=== PATIENT | male | born 1930 | race African-American/Black ===

== ENCOUNTER 2019-11-29 07:16 | Inpatient (IN) | payer MEDICARE, MEDICAID ==
[~2019-11-29] VITALS: Ht 165.1 cm; Wt 64.9 kg
[2019-11-29] VITALS (17 sets, daily range): BP systolic 52–138; BP diastolic 36–69
[2019-11-29] MEDS ORDERED: ETOMIDATE 20 MG/10 ML VIAL. IV ONE ×2 (07:25→07:37)
[2019-11-29] MEDS ORDERED: SUCCINYLCHOLINE 200 MG/10 ML VIAL. IV ONE (07:25)
[2019-11-29] MEDS ORDERED: IV NORMAL SALINE 1000ML BAG 1,000 ML IV ONE ×2 (07:30→09:00)
[2019-11-29] MEDS ORDERED: SUCCINYLCHOLINE 200 MG/10 ML VIAL. ONE (07:38)
[2019-11-29] MEDS ORDERED: PROPOFOL 50 ML IV ONE ×3 (07:39→10:00)
[2019-11-29 07:43] LABS: BASO # 0.2 x10^3/uL (0.0-0.2); BASO % 1 % (0-3); EOS # 0.1 x10^3/uL (0.0-0.7); EOS % 0 % (0-3); HEMATOCRIT 31.2 % (39.0-53.0); HEMOGLOBIN 10.2 g/dL (13.0-17.5); LYMPH # 4.8 x10^3/uL (1.0-4.8); LYMPH % 16 % (24-48); MEAN CORPUSCULAR HEMOGLOBIN 31 pg (25-35); MEAN CORPUSCULAR HGB CONC 33 g/dL (31-37); MEAN CORPUSCULAR VOLUME 96 fL (79-100); MONO % 3 % (0-9); NEUT % 79 % (31-73); PLATELET COUNT 454 x10^3/uL (140-400); RED BLOOD COUNT 3.26 x10^6/uL (4.30-5.70); RED CELL DISTRIBUTION WIDTH 19.2 % (11.5-14.5); WHITE BLOOD COUNT 29.1 x10^3/uL (4.0-11.0)
[2019-11-29 07:45] LABS: BILIRUBIN,URINE NEGATIVE (NEG); CLARITY,URINE CLEAR; COLOR,URINE YELLOW; NITRITE,URINE NEGATIVE (NEG); PROTEIN,URINE NEGATIVE (NEG-TRACE); UROBILINOGEN,URINE 0.2 mg/dL (0.2 mg/dL)
[2019-11-29] MEDS ORDERED: PIPERACILLIN/TAZOBACTAM 3.375 GM in IV NORMAL SALINE 50ML 50 ML IV ONE (07:45)
[2019-11-29 07:52] LABS: PROTHROMBIN TIME PATIENT 14.6 SEC (11.7-14.0)
[2019-11-29 07:53] LABS: BASE EXCESS ABG -4 mmol/L (-3-3); HCO3 ABG 24 mmol/L (21-28); PCO2 ABG 57 mmHg (35-46); PO2 ABG 91 mmHg (65-108); SAT O2 ABG 95 % (92-99)
[2019-11-29 07:53] LABS: AMORPHOUS SEDIMENT,UR PRESENT /HPF; BACTERIA,URINE 0 /HPF (0-FEW); RBC,URINE 0 /HPF (0-2); SQUAMOUS EPITHELIAL CELL,UR OCC /LPF; WBC,URINE OCC /HPF (0-4)
[2019-11-29 08:02] LABS: FIO2 ABG 100
--- NOTE | 2019-11-29 08:04 | RAD ---
PORTABLE CHEST 1V 11/29/2019 7:34 AM INDICATION: Shortness of air, post intubation COMPARISON: 11/08/2006 TECHNIQUE: Portable frontal view of the chest is provided. FINDINGS: The cardiomediastinal silhouette is similar in appearance. Surgical clips are identified in the right hilar region, stable. There is chronic inflammation right hemidiaphragm. Endotracheal tube is identified with the distal tip terminating 3.9 cm above lower payam. Nasogastric tube is identified with the side port projecting over the left upper quadrant abdomen in expected region of the stomach. There are are patchy interstitial changes of the lung bases which may represent interstitial pneumonitis versus subsegmental atelectasis. No significant pleural effusions, pulmonary vascular congestion or pneumothorax. No suspicious osseous abnormality. IMPRESSION: Endotracheal tube and nasogastric tube are in satisfactory position. Retraction of the right hilum with elevation right hemidiaphragm appears chronic. New patchy interstitial airspace disease within the lower lobes, left greater than right suspicious for pulmonary infiltrates. Electronically signed by: Madeline Larson MD (11/29/2019 8:01 AM) [id number]
[2019-11-29 08:38] LABS: % LYMPHS 22 % (24-48); % MONOS 5 % (0-10); % SEGS 73 % (35-66)
[2019-11-29 08:39] LABS: PLT ESTIMATE INCREASED (ADEQUATE)
[2019-11-29] MEDS ORDERED: PROPOFOL 10 MG/ML (50ML) VIAL. IV ONE (08:45)
[2019-11-29] MEDS ORDERED: PROPOFOL 10 MG/ML (20ML) VIAL. IV ONE (09:30)
[2019-11-29] MEDS ORDERED: PROPOFOL 10 MG/ML (20ML) VIAL. IV PRN (09:45)
--- NOTE | 2019-11-29 09:50 | PHYS DOC ---
Past Medical History Past Medical History: A-Fib, Anemia, CVA, High Cholesterol, Hypertension, Pneumonia, TIA, Other Additional Past Medical Histor: CVA R SIDED WEAKNESS, APHASIA, DYSPHAGIA, ENCEPHALOPATHY,C.DIFF Past Surgical History: Other Additional Past Surgical Histo: UNKNOWN SUGICAL HX Smoking Status: Unknown if ever smoked Alcohol Use: None General Adult EDM: Chief Complaint: DYSPNEA/RESPIRATOY DISTRESS HPI: HPI: Patient is a 89 year old male who was brought here from the [place] [facility] due to altered mental status and respiratory distress. History was limited, upon arrival to ER patient was unresponsive to pain or verbal stimuli, in respiratory distress. 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 He also has history of aphagia, has PEG tube in place. Review of Systems: Review of Systems: Not able to obtain due to unresponsiveness Heart Score: Risk Factors: Risk Factors: DM, Current or recent (<one month) smoker, HTN, HLP, family history of CAD, obesity. Risk Scores: Score 0 - 3: 2.5% MACE over next 6 weeks - Discharge Home Score 4 - 6: 20.3% MACE over next 6 weeks - Admit for Clinical Observation Score 7 - 10: 72.7% MACE over next 6 weeks - Early Invasive Strategies Current Medications: Current Medications Medications (Trade) Dose Ordered Sig/Jaleesa Start Time Stop Time Status Last Admin Dose Admin Etomidate (Amidate) 20 mg 1X ONCE 11/29/19 07:25 11/29/19 08:30 DC 11/29/19 08:35 20 MG Piperacillin Sod/ Tazobactam Sod 3.375 gm/Sodium Chloride 50 ml @ 100 mls/hr 1X ONCE 11/29/19 07:45 11/29/19 08:14 DC 11/29/19 08:29 100 MLS/HR Propofol 50 ml @ 0.975 mls/ hr 1X ONCE 11/29/19 10:00 11/29/19 10:01 Propofol (Diprivan) 200 mg TITRATE PRN 11/29/19 09:45 11/29/19 09:47 DC 11/29/19 09:45 200 MG Sodium Chloride 1,000 ml @ 1,000 mls/hr 1X ONCE 11/29/19 09:00 11/29/19 09:59 11/29/19 09:09 1,000 MLS/HR Succinylcholine Chloride (Anectine) 100 mg 1X ONCE 11/29/19 07:25 11/29/19 08:30 DC 11/29/19 08:31 100 MG Allergies: Allergies: Allergies Coded Allergies Type Severity Reaction Last Updated Verified No Known Drug Allergies 11/29/19 No Physical Exam: PE: Constitutional: Well developed, well nourished, in severe distress, unr esponsive, toxic appearing HENT: Normocephalic, atraumatic, bilateral external ears normal,whitish fluid in oropharyngeal area. nose normal. [] Eyes: PERRLA,conjunctiva normal, no discharge. [] Neck: Normal range of motion, no tenderness, supple, no stridor. [] Cardiovascular:Heart rate regular rhythm, no murmur [] Lungs & Thorax: Bilateral breath sounds with diffuse rales. Abdomen: Bowel sounds normal, soft, no tenderness, no masses, no pulsatile masses. PEG tube in place Skin: Warm, dry, no erythema, no rash. [] Back: atraumatic. Extremities: atraumatic, no edema Neurologic: unresponsive to pain or verbal... Psychologic: not able to obtain Current Patient Data: Labs: Laboratory Tests Test 11/29/19 07:25 11/29/19 07:35 11/29/19 07:36 11/29/19 08:15 White Blood Count 29.1 x10^3/uL (4.0-11.0) H Red Blood Count 3.26 x10^6/uL (4.30-5.70) L Hemoglobin 10.2 g/dL (13.0-17.5) L Hematocrit 31.2 % (39.0-53.0) L Mean Corpuscular Volume 96 fL (79-100) Mean Corpuscular Hemoglobin 31 pg (25-35) Mean Corpuscular Hemoglobin Concent 33 g/dL (31-37) Red Cell Distribution Width 19.2 % (11.5-14.5) H Platelet Count 454 x10^3/uL (140-400) H Neutrophils (%) (Auto) 79 % (31-73) H Lymphocytes (%) (Auto) 16 % (24-48) L Monocytes (%) (Auto) 3 % (0-9) Eosinophils (%) (Auto) 0 % (0-3) Basophils (%) (Auto) 1 % (0-3) Neutrophils # (Auto) 23.0 x10^3/uL (1.8-7.7) H Lymphocytes # (Auto) 4.8 x10^3/uL (1.0-4.8) Monocytes # (Auto) 1.0 x10^3/uL (0.0-1.1) Eosinophils # (Auto) 0.1 x10^3/uL (0.0-0.7) Basophils # (Auto) 0.2 x10^3/uL (0.0-0.2) Segmented Neutrophils % 73 % (35-66) H Lymphocytes % 22 % (24-48) L Monocytes % 5 % (0-10) Platelet Estimate Increased (ADEQUATE) Prothrombin Time 14.6 SEC (11.7-14.0) H Prothrombin Time INR 1.2 (0.8-1.1) H Activated Partial Thromboplast Time 26 SEC (24-38) Lactic Acid Level 2.3 mmol/L (0.4-2.0) H Urine Collection Type Unknown Urine Color Yellow Urine Clarity Clear Urine pH 6.0 (<5.0-8.0) Urine Specific [place] 1.010 (1.000-1.030) Urine Protein Negative mg/dL (NEG-TRACE) Urine Glucose (UA) Negative mg/dL (NEG) Urine Ketones (Stick) Negative mg/dL (NEG) Urine Blood Negative (NEG) Urine Nitrite Negative (NEG) Urine Bilirubin Negative (NEG) Urine Urobilinogen Dipstick 0.2 mg/dL (0.2 mg/dL) Urine Leukocyte Esterase Negative (NEG) Urine RBC 0 /HPF (0-2) Urine WBC Occ /HPF (0-4) Urine Squamous Epithelial Cells Occ /LPF Urine Amorphous Sediment Present /HPF Urine Bacteria 0 /HPF (0-FEW) Urine Mucus Slight /LPF O2 Saturation 95 % (92-99) Arterial Blood pH 7.25 (7.35-7.45) L Arterial Blood pCO2 at Patient Temp 57 mmHg (35-46) H Arterial Blood pO2 at Patient Temp 91 mmHg (65-108) Arterial Blood HCO3 24 mmol/L (21-28) Arterial Blood Base Excess -4 mmol/L (-3-3) L FiO2 100 Troponin I Quantitative 0.047 ng/mL (0.000-0.055) AT-Fne-I-Type Natriuretic Peptide 131 pg/mL (0-449) Laboratory Tests 11/29/19 07:25 Vital Signs: Vital Signs Date Time Temp Pulse Resp B/P (MAP) Pulse Ox O2 Delivery O2 Flow Rate FiO2 11/29/19 08:55 106 96/51 (66) Ventilator 11/29/19 08:45 93 11/29/19 07:30 25.0 11/29/19 07:25 96.6 50 96.6 EKG: EKG: EKG was done as 8 am, heart rate 105 beats per minutes, sinus tachycardia, no ST segment elevation, normal conduction, no ectopy Radiology/Procedures: Radiology/Procedures: [][facility] [address] [place], [place] [id number] IMAGING REPORT Signed PATIENT: ASYA YEE ACCOUNT: [id number] : 1930 LOCATION: ER AGE: 89 SEX: M EXAM STATUS: REG ER ORD. PHYSICIAN: PAMELA KIRKLAND DO REASON: soa, post intubation PROCEDURE: PORTABLE CHEST 1V PORTABLE CHEST 1V 11/29/2019 7:34 AM INDICATION: Shortness of air, post intubation COMPARISON: 11/08/2006 TECHNIQUE: Portable frontal view of the chest is provided. FINDINGS: The cardiomediastinal silhouette is similar in appearance. Surgical clips are identified in the right hilar region, stable. There is chronic inflammation right hemidiaphragm. Endotracheal tube is identified with the distal tip terminating 3.9 cm above lower payam. Nasogastric tube is identified with the side port projecting over the left upper quadrant abdomen in expected region of the stomach. There are are patchy interstitial changes of the lung bases which may represent interstitial pneumonitis versus subsegmental atelectasis. No significant pleural effusions, pulmonary vascular congestion or pneumothorax. No suspicious osseous abnormality. IMPRESSION: Endotracheal tube and nasogastric tube are in satisfactory position. Retraction of the right hilum with elevation right hemidiaphragm appears chronic. New patchy interstitial airspace disease within the lower lobes, left greater than right suspicious for pulmonary infiltrates. Electronically signed by: Madeline Larson MD (11/29/2019 8:01 AM) [id number] INTUBATION PROCEDURE: Indication: Respiratory failure Consent: Unable to give consent due to emergent nature. Medications Used: see nursing note Procedure: The patient was placed in the appropriate position. Intubation was performed by this physician, glide scope was used, cord was visualized, ET TUBE # 7.5 was used. ET tube was secured 24 at lip. Initial confirmation of placement included bilateral breath sounds, tube fogging, adequate chest rise, adequate pulse oximetry reading. A chest x-ray to verify correct placement of the tube showed appropriate tube position. The patient tolerated the procedure well. Complications: none. Course & Med Decision Making: Course & Med Decision Making Pertinent Labs and Imaging studies reviewed. (See chart for details) Patient is an 89-year-old male who was brought here by EMS due to respiratory failure, he was intubated urgently upon arrival by disposition. Patient was found to have pneumonia. He also met criteria for severe sepsis. Patient was given IV fluid and IV antibiotic in the ER, he was admitted to the hospital, pulmonology service was consulted for ventilator management. Discussed with Dr. Mina who agreed to admit the patient Critical care time was [45] minutes which includes time at bedside, spent in discussion of patient's care with specialist and/or family members, with interpretation of laboratory and/or radiological studies and is exclusive of procedures. Dragon Disclaimer: Dragon Disclaimer: This electronic medical record was generated, in whole or in part, using a voice recognition dictation system. Departure Departure Impression: Primary Impression: Respiratory failure, acute Additional Impressions: Pneumonia Severe sepsis Disposition: ADMITTED INPATIENT Admitting Physician: Dm Mina Condition: GUARDED Referrals: MATEO BURGESS MD (PCP) Justicifation of Admission Dx: Justifications for Admission: Justification of Admission Dx: Yes Sepsis: Altered Mental Status PAMELA KIRKLAND DO Nov 29, 2019 09:50
[2019-11-29] MEDS ORDERED: ONDANSETRON PF 4 MG/2 ML VIAL. IV PRN (10:15)
[2019-11-29] MEDS ORDERED: VANCOMYCIN PER PHARMACY MC PRN (10:15)
[2019-11-29] MEDS ORDERED: IV NORMAL SALINE 1000ML BAG 1,000 ML IV SCH (10:15)
[2019-11-29 10:28] LABS: CREATININE 0.8 mg/dL (0.7-1.3); GFR 110.6; POTASSIUM 4.3 mmol/L (3.5-5.1)
[2019-11-29] MEDS ORDERED: IV NORMAL SALINE 1000ML BAG 1,000 ML IV PRN (10:30)
[2019-11-29] MEDS ORDERED: ACETAMINOPHEN 650 MG/20.3 ML SOLUTION. PEG PRN (10:30)
[2019-11-29 10:33] LABS: ALBUMIN 1.8 g/dL (3.4-5.0); ALBUMIN/GLOBULIN RATIO 0.4 (1.0-1.7); MAGNESIUM 1.9 mg/dL (1.8-2.4); TOTAL BILIRUBIN 0.4 mg/dL (0.2-1.0); TOTAL PROTEIN 6.1 g/dL (6.4-8.2)
[2019-11-29] MEDS ORDERED: VANCOMYCIN 1.5 GM in IV NORMAL SALINE 500ML BAG 500 ML IV ONE (10:45)
--- NOTE | 2019-11-29 10:51 | PDOC ---
Provider Note Date of Service: DATE: 11/29/19 TIME: 10:50 Provider Note history and physical dictated # [id number] Justifications for Admission Other Justification PHILLY FONSECA MD Nov 29, 2019 10:51
--- NOTE | 2019-11-29 11:27 | HP ---
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 Chest x-ray showed bilateral lower lobe infiltrates with a high diaphragm. He had acute hypoxic respiratory failure requiring intubation and sedation in the Emergency Room. He is currently on the ventilator. ALLERGIES AND INTOLERANCES: None. MEDICATIONS: Prior to admission include allopurinol 100 mg every day, amiodarone 200 mg every day, aspirin 81 mg every day, Os-Justus D 500 one tablet every day, atorvastatin 40 mg every day, metoprolol tartrate 50 mg b.i.d., probiotic once a day, transdermal scopolamine patch 1 patch every 72 hours, and Tylenol 500 mg t.i.d. PAST MEDICAL HISTORY: Significant for cerebrovascular accident with late effects, right-sided hemiparesis, oropharyngeal dysphagia, and global aphasia, maintaining gastrostomy tube feedings with encephalopathy. He has a history of hypertension and hyperlipidemia. History of prior paroxysmal atrial fibrillation. History of anemia. SOCIAL HISTORY: He does not drink alcohol nor does he smoke cigarettes. He resides in a [facility], cared for by another physician. FAMILY HISTORY: Noncontributory. REVIEW OF SYSTEMS: Unobtainable as the patient is on the ventilator. PHYSICAL EXAMINATION: VITAL SIGNS: Temperature is 96.6 degrees, heart rate is 94, respiratory rate is 20, blood pressure is 104/52, and oxygen saturation 94% on the ventilator. HEENT: Eyes are closed. Neck is supple. Mouth is orally intubated. He is on the ventilator. HEART: S1, S2. There is no S3 or murmur. LUNGS: Clear anteriorly with a few scattered rhonchi with decreased breath sounds. ABDOMEN: Soft, bowel sounds positive, has got a gastrostomy tube. EXTREMITIES: Lower extremities without edema. SKIN: No rashes. NEUROLOGIC: He is sedated on the ventilator. LABORATORY DATA: Review of his laboratory tests: White count 29.1, hemoglobin is 10.2 with a platelet count of 454,000, 73 polys and 22 lymphocytes. Arterial blood gas showed a pH 7.25, pCO2 of 57, and a pO2 of 91. His INR was 1.2, PTT of 26. Urinalysis showed occasional white cells and no red blood cells. Sodium 138, potassium 4.3, chloride 107, total CO2 of 27, BUN 51, creatinine 0.8, and blood sugar was 166. Calcium 9.0. Lactic acid level 2.3, troponin level 0.047, and proBNP 131. EKG showed sinus tachycardia with no acute change. He had a chest x-ray done, which showed endotracheal tube in place. He has got a retraction of the right hilum and right hemidiaphragm, which appears chronic and new patchy interstitial airspace disease in the lower lobes, left greater than right, suspicious for pneumonia. ASSESSMENT: 1. Suspect aspiration pneumonia. 2. Acute hypoxic and hypercarbic respiratory failure, on the ventilator. 3. Leukocytosis. 4. 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 5. Prerenal azotemia secondary to dehydration. 6. Hypertension. 7. Hyperlipidemia. 8. Paroxysmal atrial fibrillation, currently in sinus rhythm. PLAN: At this time is to consult Dr. Alatorre for Pulmonary and Dr. Milton Calle for Infectious Disease. We will admit him to the Intensive Care Unit. We will continue ventilator support. We will start him on his tube feedings at 30 mL an hour and advance it slowly to a goal rate of 60 an hour, water flushes 200 mL every 6 hours and with normal saline at 75 mL an hour. Repeat a CBC, BMP, and chest x-ray tomorrow. Blood cultures have been ordered. Sputum culture will be done. He had received a dose of IV vancomycin in the Emergency Room. Also, IV Zosyn will be continued. Heel protectors will be ordered. Put him on heparin for deep vein thrombosis prophylaxis and also Pepcid for gastric ulcer prophylaxis. PHILLY FONSCEA MD DR: ASIF/chuck JOB#: [id number] / [id number]
[2019-11-29 12:00] LABS: BASE EXCESS ABG -4 mmol/L (-3-3); HCO3 ABG 20 mmol/L (21-28); PCO2 ABG 36 mmHg (35-46); PO2 ABG 62 mmHg (65-108); SAT O2 ABG 90 % (92-99)
[2019-11-29] MEDS ORDERED: MIDAZOLAM HCL IV ONE (12:00)
[2019-11-29] MEDS ORDERED: NORMAL SALINE IV ONE (12:00)
[2019-11-29 12:02] LABS: FIO2 ABG 60
--- NOTE | 2019-11-29 12:15 | CONS ---
DATE OF CONSULTATION: 11/29/2019 PULMONARY CONSULTATION ATTENDING PHYSICIAN: Dm Mina MD REASON FOR CONSULTATION: Respiratory failure. HISTORY OF PRESENT ILLNESS: The patient is an 89-year-old male, who has a history of CVA with right-sided hemiparesis and oropharyngeal dysphagia. He has a PEG tube. [facility] He was brought into [facility] this morning after he was found to be unresponsive to verbal stimuli and was in respiratory distress. His chest x-ray was reviewed. It shows chronically elevated right hemidiaphragm. However, there was evidence of infiltrate involving both the lower lobes, more on the left base than the right. Currently, he is intubated. I saw him in the Emergency Room. His white cell count was markedly elevated. ABG showed a pH of 7.25, pCO2 of 57 and a pO2 of 91 on 100% FiO2. He is currently down to 60% FiO2, assist control mode, PEEP of 5. He is hemodynamically stable. I have been asked to see him for further evaluation. PAST MEDICAL HISTORY: CVA with right-sided hemiparesis, history of oropharyngeal dysphagia, history of global aphasia, history of PEG tube, history of encephalopathy, history of hypertension, hyperlipidemia, paroxysmal atrial fibrillation, and anemia. PAST SURGICAL HISTORY: PEG tube placement. SOCIAL HISTORY: Resides in a jail. No reported history of smoking or alcohol use per Dr. Mina's note. FAMILY HISTORY: Noncontributory. REVIEW OF SYSTEMS: Unable to obtain as he is on the ventilator. ALLERGIES: None. CURRENT MEDICATIONS: Given in the ER were reviewed, including antibiotic, vancomycin, and Zosyn. He is on amiodarone. PHYSICAL EXAMINATION: GENERAL: He is intubated and sedated. VITAL SIGNS: Blood pressure 100/55. He does not have fever. Blood pressure initially was 200/85. HEENT: Sclerae nonicteric. NECK: Supple. LUNGS: With diminished breath sounds with few rhonchi. CARDIOVASCULAR: Regular rate and rhythm. ABDOMEN: Soft with wounds in the lower extremities. LABORATORY DATA: Reviewed. ABG discussed in my history of present illness. BUN 50 and creatinine of 0.8. BNP 444. Troponin 0.108. Albumin is 1.8. INR 1.2. White cell count 29,000; hemoglobin 10.1; platelets are 454. IMPRESSION: 1. Acute hypoxic and hypercapnic respiratory failure, likely secondary to combination of pneumonia and possible sepsis. 2. Marked leukocytosis related to pneumonia. Need to rule out all other sources of infection as well. 3. 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 Status post percutaneous endoscopic gastrostomy tube placement. 4. Abnormal chest x-ray consistent with pneumonia. 5. History of paroxysmal atrial fibrillation. 6. Severe protein-calorie malnutrition. 7. Prerenal azotemia. 8. Mildly increased troponin level. RECOMMENDATIONS: 1. Discussed with the respiratory therapist and ER physician. 2. We will continue with present assist control mode and make changes based on the ABGs. 3. Broad-spectrum antibiotics. 4. Continue to monitor blood pressure closely. 5. Sedation. 6. We will try to reach the patient's DPOA to assess for advanced directives, especially in the setting of multiple comorbid conditions and poor quality of life before intubation. 7. DVT prophylaxis with subcutaneous heparin. 8. Stress ulcer prophylaxis. 9. We will follow along with you. Discussed with RN and RT and ER physician. CRITICAL CARE TIME: 35 minutes. IWONA SMILEY MD DR: RIKKI/chuck JOB#: [id number] / [id number]
[2019-11-29] MEDS ORDERED: NOREPINEPHRINE VIAL 8 MG in IV DEXTROSE 5% 250 ML IV PRN (13:00)
[2019-11-29] MEDS: SCOPOLAMINE 1.5MG PATCH. TD SCH (14:00)
--- NOTE | 2019-11-29 14:14 | RAD ---
Chest AP portable at 1324: Reason for examination: Post right central venous line placement. Comparison is made to previous study dated 11/29/2019 at 0743. Endotracheal tube and NG tube remain present. A right central venous catheter has been placed with the tip in the superior vena cava/right atrial junction region. No pneumothorax is seen. The heart size is normal. Mediastinum is unchanged. Lung tuttle show persistent elevation of the right hemidiaphragm. There appear to be worsening infiltrates in the right and left perihilar and lower lung tuttle. No gross pleural effusions are seen no acute bony abnormalities are seen. There are old rib fractures at the right seventh rib and there has been resection of the right sixth rib. IMPRESSION: Right central venous line present with the tip at the superior vena cava/right atrial junction with no evidence of pneumothorax. Increasing bilateral perihilar and lower lobe infiltrates, left greater than right. Electronically signed by: Jessy Cloud MD (11/29/2019 2:11 PM) KRISTEL
[2019-11-29] MEDS ORDERED: ACET650S PO (14:29)
[2019-11-29] MEDS ORDERED: LACT1CAP8 PO (14:37)
[2019-11-29] MEDS ORDERED: AMIO200T4 PEG (14:37)
[2019-11-29] MEDS ORDERED: ALLO100T PEG (14:37)
[2019-11-29] MEDS ORDERED: ASPI-630 PEG (14:37)
[2019-11-29] MEDS ORDERED: METO50TA6 PEG (14:37)
[2019-11-29] MEDS ORDERED: SCOP1PAT11 TP (14:37)
[2019-11-29] MEDS ORDERED: ATOR40TA PEG (14:37)
[2019-11-29] MEDS ORDERED: CALC-56 PEG (14:37)
[2019-11-29] MEDS: VASOPRESSIN 20 UNIT in IV DEXTROSE 5% 100ML 100 ML IV PRN ×2 (15:40→22:36)
[2019-11-29] MEDS: NOREPINEPHRINE VIAL 32 MG in IV DEXTROSE 5% 218 ML IV PRN (17:02)
[2019-11-29] MEDS: PIPERACILLIN/TAZOBACTAM 3.375 GM in IV NORMAL SALINE 50ML 50 ML IV SCH (18:27)
--- NOTE | 2019-11-29 18:42 | NUR ---
Patient recently was discharged from , went to [facility], then to [facility] in [place], [place]. I call the facility to get family information. I then talked to Oneida Baires, daughter, and updated her on her father's condition. I asked about code status, she said she was not sure if keeping him on life support was fair to him. She said that she would have a family conference call to discuss this. I educated the daughter what all is involved with the full code status and what is involved in comfort care. I also explained that a may call to update them on the patient's status within a day or two. I have all numbers and family members involved. Daughter Liam Baires, cell# [phone] and # [phone]. Josh Barrett (son in law) [phone]. Aurora Draper (granddaughter) [phone].
[2019-11-29] MEDS: MIDAZOLAM 100mg/100ml NS BAG 100 ML IV PRN (19:39)
[2019-11-29] MEDS: ATORVASTATIN CALCIUM 40 MG TABLET. PEG SCH (20:03)
[2019-11-29] MEDS: VANCOMYCIN 125 MG/2.5 ML ORAL SOLUTION. PEG SCH (20:04)
[2019-11-29] MEDS: METOPROLOL TART IMMED RELEASE 50 MG TABLET. PO SCH (20:05)
[2019-11-29] MEDS: HEPARIN for SUB-Q USE 5,000 UNIT/ML VIAL. SQ SCH (20:05)
[2019-11-30] VITALS (36 sets, daily range): BP systolic 91–184; BP diastolic 45–77
[2019-11-30] MEDS ORDERED: IV NORMAL SALINE 1000ML BAG 1,000 ML IV PRN (00:15)
[2019-11-30] MEDS: PIPERACILLIN/TAZOBACTAM 3.375 GM in IV NORMAL SALINE 50ML 50 ML IV SCH ×2 (00:32→05:33)
[2019-11-30] MEDS: NOREPINEPHRINE VIAL 32 MG in IV DEXTROSE 5% 218 ML IV PRN ×3 (00:33→20:00)
--- NOTE | 2019-11-30 03:15 | NUR ---
Pt experiencing low urine output. Provider called at 2359 and updated on pt reason for admission, medical history, current vitals, medical interventions, medical status and findings from assessment. Provider ordered 250 mL NS bolus now, IV 0.9 NS to run at 125 mL's/ Hr and a standing order to consult renal later today if pt BUN and Creat values are still poor or are worsening after am labs. At roughly 0230, Pt experiencing episode of low blood pressure, and mean arterial pressures intermittently running below 60. Pt also experiencing gastric drainage changes from green bile- like drainage to clear blood tinged drainage, to dark red drainage and finally coffee ground emesis as of the latest development. Provider called again at 0245 and updated on pt's latest status developments and medical findings since implementing providers orders from earlier. Provider ordered consult to Dr. Gutierres, consult to Dr. Perry, STAT CBC and BMP, standing orders for nurse to transfuse 2 units of PRBC's depending on HGB level from STAT CBC. Provider also ordered this RN to d/c existing order for pepcid and provider ordered 40 mg IVP Protonix daily instead. Provider ordered a 500 mL 0.9 NS bolus at this time aswell as the pt to be started on 600 mg IV Zyvox Q12hrs. Pharmacy called this RN at 0308 to inform this RN that pharmacy was going to hold Zyvox at this time to wait for Infectious Disease provider to review order for new antibiotic. Will continue to assess and monitor.
[2019-11-30 03:26] LABS: BASO # 0.1 x10^3/uL (0.0-0.2); BASO % 0 % (0-3); EOS % 0 % (0-3); HEMATOCRIT 28.7 % (39.0-53.0); HEMOGLOBIN 9.1 g/dL (13.0-17.5); LYMPH # 0.8 x10^3/uL (1.0-4.8); LYMPH % 2 % (24-48); MEAN CORPUSCULAR HEMOGLOBIN 31 pg (25-35); MEAN CORPUSCULAR HGB CONC 32 g/dL (31-37); MEAN CORPUSCULAR VOLUME 98 fL (79-100); MONO # 0.8 x10^3/uL (0.0-1.1); MONO % 3 % (0-9); NEUT # 30.8 x10^3/uL (1.8-7.7); NEUT % 95 % (31-73); PLATELET COUNT 392 x10^3/uL (140-400); RED BLOOD COUNT 2.92 x10^6/uL (4.30-5.70); RED CELL DISTRIBUTION WIDTH 18.7 % (11.5-14.5); WHITE BLOOD COUNT 32.5 x10^3/uL (4.0-11.0)
[2019-11-30] MEDS ORDERED: IV NORMAL SALINE 500ML BAG 500 ML IV ONE (03:30)
[2019-11-30 03:36] LABS: CALCIUM 8.4 mg/dL (8.5-10.1); CREATININE 1.8 mg/dL (0.7-1.3); GFR 43.4; POTASSIUM 5.2 mmol/L (3.5-5.1)
[2019-11-30 05:03] LABS: % BANDS 53 % (0-9); % LYMPHS 5 % (24-48); % METAS 1 % (0-0); % MONOS 2 % (0-10); % SEGS 39 % (35-66)
[2019-11-30 05:04] LABS: PLT ESTIMATE ADEQUATE (ADEQUATE); POLYCHROMASIA SLIGHT; TOXIC VACUOLATION SLIGHT
--- NOTE | 2019-11-30 06:30 | NUR ---
Wind Tunnel Engineer paged at [phone] and connected with provider at 0625. Provider updated on events leading up to pt hospitalization, pt history, current medical interventions and findings from assessments, vitals, lab values, urine output and recommendations from compensation/benefits specialist hospitalist, etc. Provider ordered a standing order to give fluid boluses PRN and to start D5W with 3 amps of Bicarb added to replace current fluids running. Provider also added dose of Albumin. Will continue to assess and monitor.
--- NOTE | 2019-11-30 06:45 | NUR ---
Provider paged in regards to dark red thickened coffee ground gastric drainage in OG tube. Provider returned page at [phone], from being paged at [phone]. Provider updated on pt events leading to hospitalization, pt history, current medical interventions, pt labs, pt vital signs, pt findings from this RN physical assessment, etc. Provider ordered Protonix gtt to start on pt with a bolus/ IVP of 80 mg Protonix. Provider also ordered one dose of 10mg of Reglan. Will continue to assess and monitor.
[2019-11-30] MEDS ORDERED: ALBUMIN HUMAN 5% 500 ML IV ONE (07:00)
[2019-11-30] MEDS ORDERED: METOCLOPRAMIDE HCL 10 MG/2 ML VIAL. IVP ONE (07:30)
[2019-11-30] MEDS ORDERED: PANTOPRAZOLE IV PUSH 40 MG VIAL. IVP ONE (07:30)
[2019-11-30] MEDS ORDERED: PANTOPRAZOLE IV PUSH 40 MG VIAL. IVP SCH (07:30)
--- NOTE | 2019-11-30 07:35 | EKG ---
[facility] [address] [place] [address] Test Date: 2019-11-29 Test Time: 07:59:29 Pat Name: ASYA YEE Department: Room: Gender: M Director Of Fundraising: : 1930 Requested By: PAMELA KIRKLAND Order Number: [id number] Reading MD: Measurements Intervals [place] Rate: 105 P: 74 MS: 166 QRS: 55 QRSD: 66 T: 71 QT: 328 QTc: 437 Interpretive Statements SINUS TACHYCARDIA OTHERWISE NORMAL ECG RI6.02 No previous ECG available for comparison
[2019-11-30] MEDS: VASOPRESSIN 20 UNIT in IV DEXTROSE 5% 100ML 100 ML IV PRN ×2 (07:39→16:45)
[2019-11-30] MEDS: SODIUM BICARBONATE VIAL 150 MEQ in IV DEXTROSE 5% 1,000 ML IV SCH ×2 (07:40→20:16)
[2019-11-30] MEDS: PANTOPRAZOLE SODIUM IV DRIP 80 MG in IV NORMAL SALINE 100ML 100 ML IV SCH ×2 (08:18→16:45)
[2019-11-30] MEDS: AMIODARONE HCL 200 MG TABLET. PEG SCH (08:19)
[2019-11-30] MEDS: METOPROLOL TART IMMED RELEASE 50 MG TABLET. PO SCH ×3 (08:20→19:13)
[2019-11-30] MEDS: ALLOPURINOL 100 MG TABLET. PEG SCH (08:20)
[2019-11-30] MEDS: HEPARIN for SUB-Q USE 5,000 UNIT/ML VIAL. SQ SCH (08:21)
[2019-11-30] MEDS: VANCOMYCIN 125 MG/2.5 ML ORAL SOLUTION. PEG SCH ×2 (08:23→21:10)
--- NOTE | 2019-11-30 08:38 | RAD ---
EXAM: CHEST AP ONLY INDICATION: Reason: pneumonia / Spl. Instructions: / History: . TECHNIQUE: Single view COMPARISON: 11/29/2019 FINDINGS: Patient remains intubated, ET tube terminating 3.3 cm above the payam. Right subclavian approach central venous catheter remains present, tip near the cavoatrial junction. The heart size is normal. The great vessels appear unremarkable. Johanna and again show surgical clips in the right compatible previous right lung surgery with associated volume loss. Lungs show ill-defined opacity at the left lung base, slightly improved compared to prior. Right diaphragmatic elevation and lateral tenting is present. There is no pleural effusion or pneumothorax. There are no significant osseous abnormalities. IMPRESSION: Stable lines and tubes with slight improvement in left basilar ill-defined airspace opacity. Electronically signed by: Andrea Farias MD (11/30/2019 8:36 AM) [id number]
[2019-11-30] MEDS: ASPIRIN CHEWABLE 81 MG TABLET. PO SCH (08:46)
[2019-11-30 08:54] LABS: BASE EXCESS ABG -14 mmol/L (-3-3); HCO3 ABG 14 mmol/L (21-28); PCO2 ABG 42 mmHg (35-46); PO2 ABG 59 mmHg (65-108); SAT O2 ABG 87 % (92-99)
[2019-11-30 08:59] LABS: FIO2 ABG 60
[2019-11-30] MEDS ORDERED: FAMOTIDINE 20 MG TABLET. PEG SCH (09:00)
[2019-11-30] MEDS ORDERED: ASPIRIN 325 MG TABLET PEG SCH (09:00)
--- NOTE | 2019-11-30 09:20 | PDOC2 ---
GI CONSULT Date of Service: DATE: 11/30/19 TIME: 09:20 Reason For Consult: dark red coffee ground emesis HPI: HPI: 89 y/o male w/ respiratory failure and SERAFIN, currently intubated and sedated in ICU. Reports reddish drainage from OG tube, started on PPI drip. H/o CVA - uses PEG. H&P lists h/o anemia. Med list includes ASA, amiodarone, and scopolamine. PMH: PMH: CVA w/ right-sided weakness, aphasia, dysphagia/PEG; HTN, HLD, A Fib, anemia FH: Family History: No pertinent hx Social History: Smoke: No ALCOHOL: none Drugs: None ROS: Unable to obtain. Vitals: Vitals: Vital Signs Date Time Temp Pulse Resp B/P (MAP) Pulse Ox O2 Delivery O2 Flow Rate FiO2 11/30/19 09:00 100 100/46 11/30/19 08:40 97 Ventilator 11/30/19 07:00 20 11/30/19 04:00 97.9 97.9 11/30/19 04:00 25.0 Labs: Labs: Laboratory Tests Test 11/29/19 10:10 11/29/19 11:00 11/29/19 11:49 11/30/19 03:20 Sodium Level 138 mmol/L (136-145) 140 mmol/L (136-145) Potassium Level 4.3 mmol/L (3.5-5.1) 5.2 mmol/L (3.5-5.1) Chloride Level 107 mmol/L (98-107) 106 mmol/L (98-107) Carbon Dioxide Level 27 mmol/L (21-32) 19 mmol/L (21-32) Anion Gap 4 (6-14) 15 (6-14) Blood Urea Nitrogen 51 mg/dL (8-26) 58 mg/dL (8-26) Creatinine 0.8 mg/dL (0.7-1.3) 1.8 mg/dL (0.7-1.3) Estimated GFR (Cockcroft-Gault) 110.6 43.4 BUN/Creatinine Ratio 64 (6-20) Glucose Level 166 mg/dL (70-99) 123 mg/dL (70-99) Calcium Level 9.0 mg/dL (8.5-10.1) 8.4 mg/dL (8.5-10.1) Magnesium Level 1.9 mg/dL (1.8-2.4) Total Bilirubin 0.4 mg/dL (0.2-1.0) Aspartate Amino Transf (AST/SGOT) 25 U/L (15-37) Alanine Aminotransferase (ALT/SGPT) 33 U/L (16-63) Alkaline Phosphatase 94 U/L (46-116) Total Protein 6.1 g/dL (6.4-8.2) Albumin 1.8 g/dL (3.4-5.0) Albumin/Globulin Ratio 0.4 (1.0-1.7) Lactic Acid Level 3.0 mmol/L (0.4-2.0) O2 Saturation 90 % (92-99) Arterial Blood pH 7.37 (7.35-7.45) Arterial Blood pCO2 at Patient Temp 36 mmHg (35-46) Arterial Blood pO2 at Patient Temp 62 mmHg (65-108) Arterial Blood HCO3 20 mmol/L (21-28) Arterial Blood Base Excess -4 mmol/L (-3-3) FiO2 60 White Blood Count 32.5 x10^3/uL (4.0-11.0) Red Blood Count 2.92 x10^6/uL (4.30-5.70) Hemoglobin 9.1 g/dL (13.0-17.5) Hematocrit 28.7 % (39.0-53.0) Mean Corpuscular Volume 98 fL (79-100) Mean Corpuscular Hemoglobin 31 pg (25-35) Mean Corpuscular Hemoglobin Concent 32 g/dL (31-37) Red Cell Distribution Width 18.7 % (11.5-14.5) Platelet Count 392 x10^3/uL (140-400) Neutrophils (%) (Auto) 95 % (31-73) Lymphocytes (%) (Auto) 2 % (24-48) Monocytes (%) (Auto) 3 % (0-9) Eosinophils (%) (Auto) 0 % (0-3) Basophils (%) (Auto) 0 % (0-3) Neutrophils # (Auto) 30.8 x10^3/uL (1.8-7.7) Lymphocytes # (Auto) 0.8 x10^3/uL (1.0-4.8) Monocytes # (Auto) 0.8 x10^3/uL (0.0-1.1) Eosinophils # (Auto) 0.0 x10^3/uL (0.0-0.7) Basophils # (Auto) 0.1 x10^3/uL (0.0-0.2) Segmented Neutrophils % 39 % (35-66) Band Neutrophils % 53 % (0-9) Lymphocytes % 5 % (24-48) Monocytes % 2 % (0-10) Metamyelocytes % 1 % (0-0) Toxic Vacuolation Slight Platelet Estimate Adequate (ADEQUATE) Polychromasia Slight Test 11/30/19 08:50 O2 Saturation 87 % (92-99) Arterial Blood pH 7.15 (7.35-7.45) Arterial Blood pCO2 at Patient Temp 42 mmHg (35-46) Arterial Blood pO2 at Patient Temp 59 mmHg (65-108) Arterial Blood HCO3 14 mmol/L (21-28) Arterial Blood Base Excess -14 mmol/L (-3-3) FiO2 60 BLOOD CULTURE Preliminary NO GROWTH AFTER 1 DAY Allergies: Coded Allergies: No Known Drug Allergies (Unverified , 11/29/19) Medications: Current Medications Medications (Trade) Dose Ordered Sig/Jaleesa Route PRN Reason Start Time Stop Time Status Last Admin Dose Admin Propofol (Diprivan) 500 mg 1X ONCE IV 11/29/19 09:30 11/29/19 09:31 DC 11/29/19 09:30 Propofol (Diprivan) 200 mg TITRATE PRN IV SEDATION 11/29/19 09:45 11/29/19 09:47 DC 11/29/19 09:45 Propofol 50 ml @ 0.975 mls/ hr 1X ONCE IV 11/29/19 10:00 11/29/19 10:01 DC 11/29/19 09:50 Vancomycin HCl (Vanco Per Pharmacy) 1 each PRN DAILY PRN MC SEE COMMENTS 11/29/19 10:15 11/29/19 15:47 Vancomycin HCl 1.5 gm/Sodium Chloride 500 ml @ 250 mls/hr 1X ONCE IV 11/29/19 10:45 11/29/19 12:44 DC 11/29/19 11:23 Allopurinol (Zyloprim) 100 mg DAILY PEG 11/30/19 09:00 11/30/19 08:20 Amiodarone HCl (Cordarone) 200 mg DAILY PEG 11/30/19 09:00 11/30/19 08:19 Atorvastatin Calcium (Lipitor) 40 mg QHS PEG 11/29/19 21:00 11/29/19 20:03 Metoprolol Tartrate (Lopressor) 50 mg BID PO 11/29/19 21:00 11/29/19 20:05 Vancomycin HCl (Vancomycin Oral Solution) 125 mg BID PEG 11/29/19 21:00 11/30/19 08:23 Heparin Sodium (Porcine) (Heparin Sodium) 5,000 unit BID SQ 11/29/19 21:00 11/30/19 08:21 Piperacillin Sod/ Tazobactam Sod 3.375 gm/Sodium Chloride 50 ml @ 100 mls/hr Q6HRS IV 11/29/19 18:00 11/30/19 05:33 Midazolam HCl 100 mg/Sodium Chloride 80 ml @ 0 mls/hr 1X ONCE IV 11/29/19 12:00 11/29/19 12:01 DC 11/29/19 12:13 Norepinephrine Bitartrate 8 mg/ Dextrose 258 ml @ 12.578 mls/ hr CONT PRN IV PER PROTOCOL 11/29/19 13:00 11/29/19 16:46 DC 11/29/19 13:50 Vasopressin 20 unit/Dextrose 101 ml @ 12 mls/hr CONT PRN IV SEE I/O RECORD 11/29/19 15:15 11/30/19 07:39 Midazolam HCl 100 ml @ 0 mls/hr CONT PRN IV SEE PROTOCOL 11/29/19 16:45 11/29/19 19:39 Norepinephrine Bitartrate 32 mg/ Dextrose 250 ml @ 3.047 mls/ hr CONT PRN IV PER PROTOCOL 11/29/19 17:00 11/30/19 09:05 Sodium Chloride 500 ml @ 500 mls/hr 1X ONCE IV 11/30/19 03:30 11/30/19 04:29 DC 11/30/19 03:30 Albumin Human 500 ml @ 125 mls/hr 1X ONCE IV 11/30/19 07:00 11/30/19 10:59 11/30/19 08:18 Sodium Bicarbonate 150 meq/Dextrose 1,150 ml @ 125 mls/hr [id number] IV 11/30/19 07:00 11/30/19 07:40 Pantoprazole Sodium 80 mg/ Sodium Chloride 100 ml @ 10 mls/hr Q10H IV 11/30/19 07:30 11/30/19 08:18 Pantoprazole Sodium (PROTONIX VIAL for IV PUSH) 80 mg 1X ONCE IVP 11/30/19 07:30 11/30/19 07:31 DC 11/30/19 08:19 Metoclopramide HCl (Reglan Vial) 10 mg 1X ONCE IVP 11/30/19 07:30 11/30/19 07:40 DC 11/30/19 08:20 Aspirin (Aspirin Chewable) 81 mg [id number] PO 11/30/19 08:30 11/30/19 08:46 Imaging: Imaging: CXR 11/28 IMPRESSION: Endotracheal tube and nasogastric tube are in satisfactory position. Retraction of the right hilum with elevation right hemidiaphragm appears chronic. New patchy interstitial airspace disease within the lower lobes, left greater than right suspicious for pulmonary infiltrates. CXR 11/28 IMPRESSION: Right central venous line present with the tip at the superior vena cava/right atrial junction with no evidence of pneumothorax. Increasing bilateral perihilar and lower lobe infiltrates, left greater than right. CXR 11/29 IMPRESSION: Stable lines and tubes with slight improvement in left basilar ill-defined airspace opacity. PE: GEN: intubated HEENT: Atraumatic LUNGS: vent, diminished HEART: RR ABD: PEG in place - gauze removed from under bumper and replaced over - thin brownish-reddish material w/ occasional darker areas in OG tube/canister EXTREMITY: No edema SKIN: No rashes, no jaundice NEURO/PSYCH: sedated A/P: A/P: Resp failure, SERAFIN, lactic acidosis, mildly elevated troponin Bloody OG output Anemia - Hgb drift from 10.2 to 9.1 - ?baseline around 10 H/o CVA and dysphagia w/ PEG in place - also remains on ASA COVID negative -- Continue PPI, monitor OG output and Hgb. NANY LOPEZ Nov 30, 2019 09:20
[2019-11-30] MEDS: MIDAZOLAM 100mg/100ml NS BAG 100 ML IV PRN (09:42)
--- NOTE | 2019-11-30 10:22 | PDOC2 ---
CONSULT Date of Consult Date of Consult DATE: 11/30/19 TIME: 10:18 Reason for Consult Reason for Consult: SERAFIN/anuric Identification/Chief Complaint Chief Complaint Unable to Obtain from Pt 2/2 Intubated/MV Source Source: Chart review History of Present Illness Reason for Visit: Obtained from Chart review and staff -- Pt is a 89-year-old white male with history of cerebrovascular accident , right-sided ,hemiparesis; oropharyngeal dysphagia, maintained on PEG tube feedings; global aphasia; and encephalopathy, who resides in a retirement, He was admitted to through the Emergency Room on 11/29/2019 as he was found to be unresponsive to verbal stimuli and respiratory distress. Chest x-ray showed bilateral lower lobe infiltrates with a high diaphragm. He had acute Hypoxia requiring intubation and sedation in the Emergency Room. He is currently on the ventilator. On max doses of two pressors, not making urine MEDICATIONS: Prior to admission include allopurinol 100 mg every day,amiodarone 200 mg every day, aspirin 81 mg every day, Os-Justus D 500 one tablet probiotic once a day, transdermal scopolamine patch 1 patch every 72 hours, and Tylenol 500 mg t.i.d. Past Medical History Past Medical History Significant for cerebrovascular accident with late effects, right-sided darlene paresis, oropharyngeal dysphagia, and global aphasia, maintaining gastrostomy tube feedings with encephalopathy. He has a history of hypertension and hyperlipidemia. History of prior paroxysmal atrial fibrillation. History of anemia. Family History Family History Unable to Obtain 2/2 Intubation/MV Social History Social History He does not drink alcohol nor does he smoke cigarettes. He resides in a retirement. Unable to Obtain from Pt No ALCOHOL: none Drugs: None Current Problem List Problem List Problems Medical Problems: (1) Pneumonia Status: Acute (2) Respiratory failure, acute Status: Acute (3) Severe sepsis Status: Acute Current Medications Current Medications Current Medications Etomidate (Amidate) 20 mg STK-MED ONCE IV ; Start 11/29/19 at 07:37; Stop 11/29/19 at 07:37; Status DC Succinylcholine Chloride (Anectine) 200 mg STK-MED ONCE .ROUTE ; Start 11/29/19 at 07:38; Stop 11/29/19 at 07:38; Status DC Propofol 50 ml @ As Directed STK-MED ONCE IV ; Start 11/29/19 at 07:39; Stop 11/29/19 at 07:39; Status DC Piperacillin Sod/ Tazobactam Sod 3.375 gm/Sodium Chloride 50 ml @ 100 mls/hr 1X ONCE IV Last administered on 11/29/19at 08:29; Start 11/29/19 at 07:45; Stop 11/29/19 at 08:14; Status DC Propofol 50 ml @ As Directed STK-MED ONCE IV ; Start 11/29/19 at 08:21; Stop 11/29/19 at 08:21; Status DC Sodium Chloride 1,000 ml @ 1,000 mls/hr 1X ONCE IV Last administered on 11/29/19at 08:32; Start 11/29/19 at 07:30; Stop 11/29/19 at 08:30; Status DC Etomidate (Amidate) 20 mg 1X ONCE IV Last administered on 11/29/19at 08:35; Start 11/29/19 at 07:25; Stop 11/29/19 at 08:30; Status DC Succinylcholine Chloride (Anectine) 100 mg 1X ONCE IV Last administered on 11/29/19at 08:31; Start 11/29/19 at 07:25; Stop 11/29/19 at 08:30; Status DC Propofol (Diprivan) 500 mg 1X ONCE IV Last administered on 11/29/19at 08:33; Start 11/29/19 at 08:45; Stop 11/29/19 at 08:46; Status DC Sodium Chloride 1,000 ml @ 1,000 mls/hr 1X ONCE IV Last administered on 11/29/19at 09:09; Start 11/29/19 at 09:00; Stop 11/29/19 at 09:59; Status DC Propofol (Diprivan) 500 mg 1X ONCE IV Last administered on 11/29/19at 09:30; Start 11/29/19 at 09:30; Stop 11/29/19 at 09:31; Status DC Propofol (Diprivan) 200 mg TITRATE PRN IV SEDATION Last administered on 11/29/19at 09:45; Start 11/29/19 at 09:45; Stop 11/29/19 at 09:47; Status DC Propofol 50 ml @ 0.975 mls/ hr 1X ONCE IV Last administered on 11/29/19at 09:50; Start 11/29/19 at 10:00; Stop 11/29/19 at 10:01; Status DC Vancomycin HCl (Vanco Per Pharmacy) 1 each PRN DAILY PRN MC SEE COMMENTS Last administered on 11/29/19at 15:47; Start 11/29/19 at 10:15 Ondansetron HCl (Zofran) 4 mg PRN Q8HRS PRN IV NAUSEA/VOMITING; Start 11/29/19 at 10:15; Stop 11/30/19 at 10:14; Status DC Sodium Chloride 1,000 ml @ 125 mls/hr Q8H IV ; Start 11/29/19 at 10:15; Stop 11/29/19 at 10:54; Status DC Vancomycin HCl 1.5 gm/Sodium Chloride 500 ml @ 250 mls/hr 1X ONCE IV Last administered on 11/29/19at 11:23; Start 11/29/19 at 10:45; Stop 11/29/19 at 12:44; Status DC Acetaminophen (Tylenol) 650 mg Q6HRS PRN PEG MILD PAIN / TEMP > 100.3'F; Start 11/29/19 at 10:30 Sodium Chloride 1,000 ml @ 75 mls/hr CONT PRN IV .; Start 11/29/19 at 10:30; Stop 11/30/19 at 00:15; Status DC Allopurinol (Zyloprim) 100 mg DAILY PEG Last administered on 11/30/19at 08:20; Start 11/30/19 at 09:00 Amiodarone HCl (Cordarone) 200 mg DAILY PEG Last administered on 11/30/19at 08:19; Start 11/30/19 at 09:00 Aspirin (Rosemary Aspirin) 81 mg DAILY PEG ; Start 11/30/19 at 09:00; Stop 11/30/19 at 08:25; Status DC Atorvastatin Calcium (Lipitor) 40 mg QHS PEG Last administered on 11/29/19at 20:03; Start 11/29/19 at 21:00 Metoprolol Tartrate (Lopressor) 50 mg BID PO Last administered on 11/29/19at 20:05; Start 11/29/19 at 21:00 Scopolamine (Transderm-Scop) 1 patch Q3DAYS TD ; Start 11/29/19 at 14:00 Vancomycin HCl (Vancomycin Oral Solution) 125 mg BID PEG Last administered on 11/30/19at 08:23; Start 11/29/19 at 21:00 Famotidine (Pepcid) 20 mg DAILY PEG ; Start 11/30/19 at 09:00; Stop 11/30/19 at 03:05; Status DC Heparin Sodium (Porcine) (Heparin Sodium) 5,000 unit BID SQ Last administered on 11/30/19at 08:21; Start 11/29/19 at 21:00 Piperacillin Sod/ Tazobactam Sod 3.375 gm/Sodium Chloride 50 ml @ 100 mls/hr Q6HRS IV Last administered on 11/30/19at 05:33; Start 11/29/19 at 18:00 Midazolam HCl 100 mg/Sodium Chloride 80 ml @ 0 mls/hr 1X ONCE IV Last administered on 11/29/19at 12:13; Start 11/29/19 at 12:00; Stop 11/29/19 at 12:01; Status DC Norepinephrine Bitartrate 8 mg/ Dextrose 258 ml @ 12.578 mls/ hr CONT PRN IV PER PROTOCOL Last administered on 11/29/19at 13:50; Start 11/29/19 at 13:00; Stop 11/29/19 at 16:46; Status DC Vasopressin 20 unit/Dextrose 101 ml @ 12 mls/hr CONT PRN IV SEE I/O RECORD Last administered on 11/30/19at 07:39; Start 11/29/19 at 15:15 Vancomycin HCl 1 gm/Sodium Chloride 250 ml @ 250 mls/hr Q24H IV ; Start 11/30/19 at 11:00 Vancomycin HCl (Vancomycin Trough Level) 1 each 1X ONCE MC ; Start 12/01/19 at 10:30; Stop 12/01/19 at 10:31 Fentanyl Citrate 30 ml @ 0 mls/hr CONT PRN IV SEE PROTOCOL; Start 11/29/19 at 16:45 Midazolam HCl 100 ml @ 0 mls/hr CONT PRN IV SEE PROTOCOL Last administered on 11/30/19at 09:42; Start 11/29/19 at 16:45 Norepinephrine Bitartrate 32 mg/ Dextrose 250 ml @ 3.047 mls/ hr CONT PRN IV PER PROTOCOL Last administered on 11/30/19at 09:05; Start 11/29/19 at 17:00 Sodium Chloride 1,000 ml @ 125 mls/hr 1X PRN PRN IV SEE COMMENTS; Start 11/30/19 at 00:15 Pantoprazole Sodium (PROTONIX VIAL for IV PUSH) 40 mg DAILYAC IVP ; Start 11/30/19 at 07:30; Stop 11/30/19 at 07:28; Status DC Sodium Chloride 500 ml @ 500 mls/hr 1X ONCE IV Last administered on 11/30/19at 03:30; Start 11/30/19 at 03:30; Stop 11/30/19 at 04:29; Status DC Linezolid/Dextrose 300 ml @ 300 mls/hr Q12HR IV ; Start 11/30/19 at 09:00; Status UNV Albumin Human 500 ml @ 125 mls/hr 1X ONCE IV Last administered on 11/30/19at 08:18; Start 11/30/19 at 07:00; Stop 11/30/19 at 10:59 Sodium Bicarbonate 150 meq/Dextrose 1,150 ml @ 125 mls/hr Q9H12M IV Last administered on 11/30/19at 07:40; Start 11/30/19 at 07:00 Pantoprazole Sodium 80 mg/ Sodium Chloride 100 ml @ 10 mls/hr Q10H IV Last administered on 11/30/19at 08:18; Start 11/30/19 at 07:30 Pantoprazole Sodium (PROTONIX VIAL for IV PUSH) 80 mg 1X ONCE IVP Last administered on 11/30/19at 08:19; Start 11/30/19 at 07:30; Stop 11/30/19 at 07:31; Status DC Metoclopramide HCl (Reglan Vial) 10 mg 1X ONCE IVP Last administered on 11/30/19at 08:20; Start 11/30/19 at 07:30; Stop 11/30/19 at 07:40; Status DC Aspirin (Aspirin Chewable) 81 mg DAILYWBKFT PO Last administered on 11/30/19at 08:46; Start 11/30/19 at 08:30 Active Scripts Active Reported Transderm-Scop (Scopolamine) 1 Each Patch.td72 1 Patch TP Q3DAYS Probiotic (Lactobacillus Combo No.11) 1 Each Cap.sprink 1 Each PO DAILY Metoprolol Tartrate 50 Mg Tablet 1 Tab PEG BID Lipitor (Atorvastatin Calcium) 40 Mg Tablet 1 Tab PEG QHS Calcium 500 + Vit D 200 Caplet (Calcium Carbonate/Vitamin D3) 1 Each Tablet 1 Tab PEG DAILY 30 Days Aspirin 81 Mg Tab.chew 1 Tab PEG DAILY Amiodarone Hcl 200 Mg Tablet 1 Tab PEG DAILY Allopurinol 100 Mg Tablet 1 Tab PEG DAILY Acetaminophen Oral Liquid (Acetaminophen) 650 Mg/20.3 Ml Solution 650 Mg PO PRN Q4HRS PRN Allergies Allergies: Coded Allergies: No Known Drug Allergies (Unverified , 11/29/19) ROS Review of System Unable to Obtain from Pt 2/2 Intubated/MV Physical Exam Physical Exam GEN- Intubated, sedated HEENT: orally intubated NECK Supple HEART: S1, S2. There is no S3 or murmur. LUNGS: Clear anteriorly with a few scattered rhonchi with decreased breath sounds. ABDOMEN: Soft, bowel sounds positive, has a gastrostomy tube. EXTREMITIES: Lower extremities without edema. SKIN: No rashes. NEUROLOGIC: sedated on the ventilator Patel catheter in place Vital Signs Vital Signs Date Time Temp Pulse Resp B/P (MAP) Pulse Ox O2 Delivery O2 Flow Rate FiO2 11/30/19 09:00 102 24 97/48 (64) 96 Ventilator 11/30/19 08:00 97.1 97.1 11/30/19 04:00 25.0 Assessment & Plan SERAFIN- ATN, Anuric, sever Hypotension Have been on IVF, switched to NaHCo3 gtt earlier Has been on max doses of 2 pressors UA unremarkable, Check Renal US , Critically ill, CRRT only if aggressive care continued in opinion of other consultants Pending discussion by Dr. Omer with DPOA HyperKalemia -Mild Acidosis- Mild, Currently on NaHCO3 gtt Suspect aspiration pneumonia Acute hypoxic and hypercarbic respiratory failure, on the ventilator. Cerebrovascular accident ,right-sided hemiparesis, global aphasia, encephalopathy Oropharyngeal dysphagia, maintain on PEG tube feedings. Hypertension- Severe Hypotension requiring pressors Paroxysmal atrial fibrillation Dw RN Labs Labs Laboratory Tests Test 11/29/19 07:25 11/29/19 07:30 11/29/19 07:35 11/29/19 07:36 White Blood Count 29.1 x10^3/uL (4.0-11.0) Red Blood Count 3.26 x10^6/uL (4.30-5.70) Hemoglobin 10.2 g/dL (13.0-17.5) Hematocrit 31.2 % (39.0-53.0) Mean Corpuscular Volume 96 fL (79-100) Mean Corpuscular Hemoglobin 31 pg (25-35) Mean Corpuscular Hemoglobin Concent 33 g/dL (31-37) Red Cell Distribution Width 19.2 % (11.5-14.5) Platelet Count 454 x10^3/uL (140-400) Neutrophils (%) (Auto) 79 % (31-73) Lymphocytes (%) (Auto) 16 % (24-48) Monocytes (%) (Auto) 3 % (0-9) Eosinophils (%) (Auto) 0 % (0-3) Basophils (%) (Auto) 1 % (0-3) Neutrophils # (Auto) 23.0 x10^3/uL (1.8-7.7) Lymphocytes # (Auto) 4.8 x10^3/uL (1.0-4.8) Monocytes # (Auto) 1.0 x10^3/uL (0.0-1.1) Eosinophils # (Auto) 0.1 x10^3/uL (0.0-0.7) Basophils # (Auto) 0.2 x10^3/uL (0.0-0.2) Segmented Neutrophils % 73 % (35-66) Lymphocytes % 22 % (24-48) Monocytes % 5 % (0-10) Platelet Estimate Increased (ADEQUATE) Prothrombin Time 14.6 SEC (11.7-14.0) Prothromb Time International Ratio 1.2 (0.8-1.1) Activated Partial Thromboplast Time 26 SEC (24-38) Lactic Acid Level 2.3 mmol/L (0.4-2.0) Coronavirus (PCR) Not detected (Not Detected) Urine Collection Type Unknown Urine Color Yellow Urine Clarity Clear Urine pH 6.0 (<5.0-8.0) Urine Specific [place] 1.010 (1.000-1.030) Urine Protein Negative mg/dL (NEG-TRACE) Urine Glucose (UA) Negative mg/dL (NEG) Urine Ketones (Stick) Negative mg/dL (NEG) Urine Blood Negative (NEG) Urine Nitrite Negative (NEG) Urine Bilirubin Negative (NEG) Urine Urobilinogen Dipstick 0.2 mg/dL (0.2 mg/dL) Urine Leukocyte Esterase Negative (NEG) Urine RBC 0 /HPF (0-2) Urine WBC Occ /HPF (0-4) Urine Squamous Epithelial Cells Occ /LPF Urine Amorphous Sediment Present /HPF Urine Bacteria 0 /HPF (0-FEW) Urine Mucus Slight /LPF O2 Saturation 95 % (92-99) Arterial Blood pH 7.25 (7.35-7.45) Arterial Blood pCO2 at Patient Temp 57 mmHg (35-46) Arterial Blood pO2 at Patient Temp 91 mmHg (65-108) Arterial Blood HCO3 24 mmol/L (21-28) Arterial Blood Base Excess -4 mmol/L (-3-3) FiO2 100 Test 11/29/19 08:15 11/29/19 10:10 11/29/19 11:00 11/29/19 11:49 Troponin I Quantitative 0.108 ng/mL (0.000-0.055) DI-Wyi-J-Type Natriuretic Peptide 444 pg/mL (0-449) Sodium Level 138 mmol/L (136-145) Potassium Level 4.3 mmol/L (3.5-5.1) Chloride Level 107 mmol/L (98-107) Carbon Dioxide Level 27 mmol/L (21-32) Anion Gap 4 (6-14) Blood Urea Nitrogen 51 mg/dL (8-26) Creatinine 0.8 mg/dL (0.7-1.3) Estimated GFR (Cockcroft-Gault) 110.6 BUN/Creatinine Ratio 64 (6-20) Glucose Level 166 mg/dL (70-99) Calcium Level 9.0 mg/dL (8.5-10.1) Magnesium Level 1.9 mg/dL (1.8-2.4) Total Bilirubin 0.4 mg/dL (0.2-1.0) Aspartate Amino Transf (AST/SGOT) 25 U/L (15-37) Alanine Aminotransferase (ALT/SGPT) 33 U/L (16-63) Alkaline Phosphatase 94 U/L (46-116) Total Protein 6.1 g/dL (6.4-8.2) Albumin 1.8 g/dL (3.4-5.0) Albumin/Globulin Ratio 0.4 (1.0-1.7) Lactic Acid Level 3.0 mmol/L (0.4-2.0) O2 Saturation 90 % (92-99) Arterial Blood pH 7.37 (7.35-7.45) Arterial Blood pCO2 at Patient Temp 36 mmHg (35-46) Arterial Blood pO2 at Patient Temp 62 mmHg (65-108) Arterial Blood HCO3 20 mmol/L (21-28) Arterial Blood Base Excess -4 mmol/L (-3-3) FiO2 60 Test 11/30/19 03:20 11/30/19 08:50 White Blood Count 32.5 x10^3/uL (4.0-11.0) Red Blood Count 2.92 x10^6/uL (4.30-5.70) Hemoglobin 9.1 g/dL (13.0-17.5) Hematocrit 28.7 % (39.0-53.0) Mean Corpuscular Volume 98 fL (79-100) Mean Corpuscular Hemoglobin 31 pg (25-35) Mean Corpuscular Hemoglobin Concent 32 g/dL (31-37) Red Cell Distribution Width 18.7 % (11.5-14.5) Platelet Count 392 x10^3/uL (140-400) Neutrophils (%) (Auto) 95 % (31-73) Lymphocytes (%) (Auto) 2 % (24-48) Monocytes (%) (Auto) 3 % (0-9) Eosinophils (%) (Auto) 0 % (0-3) Basophils (%) (Auto) 0 % (0-3) Neutrophils # (Auto) 30.8 x10^3/uL (1.8-7.7) Lymphocytes # (Auto) 0.8 x10^3/uL (1.0-4.8) Monocytes # (Auto) 0.8 x10^3/uL (0.0-1.1) Eosinophils # (Auto) 0.0 x10^3/uL (0.0-0.7) Basophils # (Auto) 0.1 x10^3/uL (0.0-0.2) Segmented Neutrophils % 39 % (35-66) Band Neutrophils % 53 % (0-9) Lymphocytes % 5 % (24-48) Monocytes % 2 % (0-10) Metamyelocytes % 1 % (0-0) Toxic Vacuolation Slight Platelet Estimate Adequate (ADEQUATE) Polychromasia Slight Sodium Level 140 mmol/L (136-145) Potassium Level 5.2 mmol/L (3.5-5.1) Chloride Level 106 mmol/L (98-107) Carbon Dioxide Level 19 mmol/L (21-32) Anion Gap 15 (6-14) Blood Urea Nitrogen 58 mg/dL (8-26) Creatinine 1.8 mg/dL (0.7-1.3) Estimated GFR (Cockcroft-Gault) 43.4 Glucose Level 123 mg/dL (70-99) Calcium Level 8.4 mg/dL (8.5-10.1) O2 Saturation 87 % (92-99) Arterial Blood pH 7.15 (7.35-7.45) Arterial Blood pCO2 at Patient Temp 42 mmHg (35-46) Arterial Blood pO2 at Patient Temp 59 mmHg (65-108) Arterial Blood HCO3 14 mmol/L (21-28) Arterial Blood Base Excess -14 mmol/L (-3-3) FiO2 60 Laboratory Tests Test 11/29/19 11:00 11/29/19 11:49 11/30/19 03:20 11/30/19 08:50 Lactic Acid Level 3.0 mmol/L (0.4-2.0) O2 Saturation 90 % (92-99) 87 % (92-99) Arterial Blood pH 7.37 (7.35-7.45) 7.15 (7.35-7.45) Arterial Blood pCO2 at Patient Temp 36 mmHg (35-46) 42 mmHg (35-46) Arterial Blood pO2 at Patient Temp 62 mmHg (65-108) 59 mmHg (65-108) Arterial Blood HCO3 20 mmol/L (21-28) 14 mmol/L (21-28) Arterial Blood Base Excess -4 mmol/L (-3-3) -14 mmol/L (-3-3) FiO2 60 60 White Blood Count 32.5 x10^3/uL (4.0-11.0) Red Blood Count 2.92 x10^6/uL (4.30-5.70) Hemoglobin 9.1 g/dL (13.0-17.5) Hematocrit 28.7 % (39.0-53.0) Mean Corpuscular Volume 98 fL (79-100) Mean Corpuscular Hemoglobin 31 pg (25-35) Mean Corpuscular Hemoglobin Concent 32 g/dL (31-37) Red Cell Distribution Width 18.7 % (11.5-14.5) Platelet Count 392 x10^3/uL (140-400) Neutrophils (%) (Auto) 95 % (31-73) Lymphocytes (%) (Auto) 2 % (24-48) Monocytes (%) (Auto) 3 % (0-9) Eosinophils (%) (Auto) 0 % (0-3) Basophils (%) (Auto) 0 % (0-3) Neutrophils # (Auto) 30.8 x10^3/uL (1.8-7.7) Lymphocytes # (Auto) 0.8 x10^3/uL (1.0-4.8) Monocytes # (Auto) 0.8 x10^3/uL (0.0-1.1) Eosinophils # (Auto) 0.0 x10^3/uL (0.0-0.7) Basophils # (Auto) 0.1 x10^3/uL (0.0-0.2) Segmented Neutrophils % 39 % (35-66) Band Neutrophils % 53 % (0-9) Lymphocytes % 5 % (24-48) Monocytes % 2 % (0-10) Metamyelocytes % 1 % (0-0) Toxic Vacuolation Slight Platelet Estimate Adequate (ADEQUATE) Polychromasia Slight Sodium Level 140 mmol/L (136-145) Potassium Level 5.2 mmol/L (3.5-5.1) Chloride Level 106 mmol/L (98-107) Carbon Dioxide Level 19 mmol/L (21-32) Anion Gap 15 (6-14) Blood Urea Nitrogen 58 mg/dL (8-26) Creatinine 1.8 mg/dL (0.7-1.3) Estimated GFR (Cockcroft-Gault) 43.4 Glucose Level 123 mg/dL (70-99) Calcium Level 8.4 mg/dL (8.5-10.1) Review All relevant outside records, renal labs, imaging studies, telemetry/EKG's were reviewed. Images Images EKG showed sinus tachycardia with no acute change. chest x-ray which showed endotracheal tube in place. He has got a retraction of the right hilum and right hemidiaphragm, which appears chronic and new patchy interstitial airspace disease in the lower lobes, left greater than right, suspicious for pneumonia. DAVIDCONSTANTINOSEB MD Nov 30, 2019 10:22
--- NOTE | 2019-11-30 10:40 | PDOC ---
PROGRESS NOTES Date of Service DATE: 11/30/19 TIME: 10:31 Subjective Subjective discussed with nurse. intubated on pressors with poor urine output. had coffee ground material from G tube last night . not bright blood. on iv protonix drip,. receiving iv antibiotics,. lab and cxr reviewed. sedated. covid 19 negative. Objective Objective Vital Signs Date Time Temp Pulse Resp B/P (MAP) Pulse Ox O2 Delivery O2 Flow Rate FiO2 11/30/19 09:00 102 24 97/48 (64) 96 Ventilator 11/30/19 08:00 97.1 97.1 11/30/19 04:00 25.0 Intake and Output 11/30/19 07:00 Intake Total 6619 ml Output Total 260 ml Balance 6359 ml Intake IV Total 6619 ml Output Urine Total 260 ml Physical Exam Abdomen: Soft, Other (bowel sounds noted. not distended. gastrostomy tube) Heart: Regular rate, Normal S1, Normal S2 Extremities: No edema General: Other (sedated on ventilator) HEENT: Atraumatic Lungs: Other (clear anteriorly) Neuro: Other (sedated) Psych/Mental Status: Other (sedated) Skin: No rashes Assessment Assessment Problems1. Suspect aspiration pneumonia. severe sepsis with shock and multi organ failure acute kidney failure 2. Acute hypoxic and hypercarbic respiratory failure, on the ventilator. 3. Leukocytosis. 4. 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 5. Prerenal azotemia secondary to dehydration POA 6. 7. Hyperlipidemia. 8. Paroxysmal atrial fibrillation, currently in sinus rhythm. severe protein calorie malnutrition Medical Problems: (1) Pneumonia Status: Acute (2) Respiratory failure, acute Status: Acute (3) Severe sepsis Status: Acute Plan Plan of Care continue ventilator support continue pressors continue iv antibiotics. zyvox and adjust zosyn dose continue bicarbonate drip continue iv protonix blood cultures pending await family decision on code status and goals of care d/c sq heparin scd for dvt prophylaxis he is critically ill and prognosis is poor Comment Review of Relevant I have reviewed the following items shadi (where applicable) has been applied. Labs Laboratory Tests Test 11/29/19 07:25 11/29/19 07:30 11/29/19 07:35 11/29/19 07:36 White Blood Count 29.1 x10^3/uL (4.0-11.0) Red Blood Count 3.26 x10^6/uL (4.30-5.70) Hemoglobin 10.2 g/dL (13.0-17.5) Hematocrit 31.2 % (39.0-53.0) Mean Corpuscular Volume 96 fL (79-100) Mean Corpuscular Hemoglobin 31 pg (25-35) Mean Corpuscular Hemoglobin Concent 33 g/dL (31-37) Red Cell Distribution Width 19.2 % (11.5-14.5) Platelet Count 454 x10^3/uL (140-400) Neutrophils (%) (Auto) 79 % (31-73) Lymphocytes (%) (Auto) 16 % (24-48) Monocytes (%) (Auto) 3 % (0-9) Eosinophils (%) (Auto) 0 % (0-3) Basophils (%) (Auto) 1 % (0-3) Neutrophils # (Auto) 23.0 x10^3/uL (1.8-7.7) Lymphocytes # (Auto) 4.8 x10^3/uL (1.0-4.8) Monocytes # (Auto) 1.0 x10^3/uL (0.0-1.1) Eosinophils # (Auto) 0.1 x10^3/uL (0.0-0.7) Basophils # (Auto) 0.2 x10^3/uL (0.0-0.2) Segmented Neutrophils % 73 % (35-66) Lymphocytes % 22 % (24-48) Monocytes % 5 % (0-10) Platelet Estimate Increased (ADEQUATE) Prothrombin Time 14.6 SEC (11.7-14.0) Prothromb Time International Ratio 1.2 (0.8-1.1) Activated Partial Thromboplast Time 26 SEC (24-38) Lactic Acid Level 2.3 mmol/L (0.4-2.0) Coronavirus (PCR) Not detected (Not Detected) Urine Collection Type Unknown Urine Color Yellow Urine Clarity Clear Urine pH 6.0 (<5.0-8.0) Urine Specific [place] 1.010 (1.000-1.030) Urine Protein Negative mg/dL (NEG-TRACE) Urine Glucose (UA) Negative mg/dL (NEG) Urine Ketones (Stick) Negative mg/dL (NEG) Urine Blood Negative (NEG) Urine Nitrite Negative (NEG) Urine Bilirubin Negative (NEG) Urine Urobilinogen Dipstick 0.2 mg/dL (0.2 mg/dL) Urine Leukocyte Esterase Negative (NEG) Urine RBC 0 /HPF (0-2) Urine WBC Occ /HPF (0-4) Urine Squamous Epithelial Cells Occ /LPF Urine Amorphous Sediment Present /HPF Urine Bacteria 0 /HPF (0-FEW) Urine Mucus Slight /LPF O2 Saturation 95 % (92-99) Arterial Blood pH 7.25 (7.35-7.45) Arterial Blood pCO2 at Patient Temp 57 mmHg (35-46) Arterial Blood pO2 at Patient Temp 91 mmHg (65-108) Arterial Blood HCO3 24 mmol/L (21-28) Arterial Blood Base Excess -4 mmol/L (-3-3) FiO2 100 Test 11/29/19 08:15 11/29/19 10:10 11/29/19 11:00 11/29/19 11:49 Troponin I Quantitative 0.108 ng/mL (0.000-0.055) HH-Xmc-G-Type Natriuretic Peptide 444 pg/mL (0-449) Sodium Level 138 mmol/L (136-145) Potassium Level 4.3 mmol/L (3.5-5.1) Chloride Level 107 mmol/L (98-107) Carbon Dioxide Level 27 mmol/L (21-32) Anion Gap 4 (6-14) Blood Urea Nitrogen 51 mg/dL (8-26) Creatinine 0.8 mg/dL (0.7-1.3) Estimated GFR (Cockcroft-Gault) 110.6 BUN/Creatinine Ratio 64 (6-20) Glucose Level 166 mg/dL (70-99) Calcium Level 9.0 mg/dL (8.5-10.1) Magnesium Level 1.9 mg/dL (1.8-2.4) Total Bilirubin 0.4 mg/dL (0.2-1.0) Aspartate Amino Transf (AST/SGOT) 25 U/L (15-37) Alanine Aminotransferase (ALT/SGPT) 33 U/L (16-63) Alkaline Phosphatase 94 U/L (46-116) Total Protein 6.1 g/dL (6.4-8.2) Albumin 1.8 g/dL (3.4-5.0) Albumin/Globulin Ratio 0.4 (1.0-1.7) Lactic Acid Level 3.0 mmol/L (0.4-2.0) O2 Saturation 90 % (92-99) Arterial Blood pH 7.37 (7.35-7.45) Arterial Blood pCO2 at Patient Temp 36 mmHg (35-46) Arterial Blood pO2 at Patient Temp 62 mmHg (65-108) Arterial Blood HCO3 20 mmol/L (21-28) Arterial Blood Base Excess -4 mmol/L (-3-3) FiO2 60 Test 11/30/19 03:20 11/30/19 08:50 White Blood Count 32.5 x10^3/uL (4.0-11.0) Red Blood Count 2.92 x10^6/uL (4.30-5.70) Hemoglobin 9.1 g/dL (13.0-17.5) Hematocrit 28.7 % (39.0-53.0) Mean Corpuscular Volume 98 fL (79-100) Mean Corpuscular Hemoglobin 31 pg (25-35) Mean Corpuscular Hemoglobin Concent 32 g/dL (31-37) Red Cell Distribution Width 18.7 % (11.5-14.5) Platelet Count 392 x10^3/uL (140-400) Neutrophils (%) (Auto) 95 % (31-73) Lymphocytes (%) (Auto) 2 % (24-48) Monocytes (%) (Auto) 3 % (0-9) Eosinophils (%) (Auto) 0 % (0-3) Basophils (%) (Auto) 0 % (0-3) Neutrophils # (Auto) 30.8 x10^3/uL (1.8-7.7) Lymphocytes # (Auto) 0.8 x10^3/uL (1.0-4.8) Monocytes # (Auto) 0.8 x10^3/uL (0.0-1.1) Eosinophils # (Auto) 0.0 x10^3/uL (0.0-0.7) Basophils # (Auto) 0.1 x10^3/uL (0.0-0.2) Segmented Neutrophils % 39 % (35-66) Band Neutrophils % 53 % (0-9) Lymphocytes % 5 % (24-48) Monocytes % 2 % (0-10) Metamyelocytes % 1 % (0-0) Toxic Vacuolation Slight Platelet Estimate Adequate (ADEQUATE) Polychromasia Slight Sodium Level 140 mmol/L (136-145) Potassium Level 5.2 mmol/L (3.5-5.1) Chloride Level 106 mmol/L (98-107) Carbon Dioxide Level 19 mmol/L (21-32) Anion Gap 15 (6-14) Blood Urea Nitrogen 58 mg/dL (8-26) Creatinine 1.8 mg/dL (0.7-1.3) Estimated GFR (Cockcroft-Gault) 43.4 Glucose Level 123 mg/dL (70-99) Calcium Level 8.4 mg/dL (8.5-10.1) O2 Saturation 87 % (92-99) Arterial Blood pH 7.15 (7.35-7.45) Arterial Blood pCO2 at Patient Temp 42 mmHg (35-46) Arterial Blood pO2 at Patient Temp 59 mmHg (65-108) Arterial Blood HCO3 14 mmol/L (21-28) Arterial Blood Base Excess -14 mmol/L (-3-3) FiO2 60 Laboratory Tests Test 11/29/19 11:00 11/29/19 11:49 11/30/19 03:20 11/30/19 08:50 Lactic Acid Level 3.0 mmol/L (0.4-2.0) O2 Saturation 90 % (92-99) 87 % (92-99) Arterial Blood pH 7.37 (7.35-7.45) 7.15 (7.35-7.45) Arterial Blood pCO2 at Patient Temp 36 mmHg (35-46) 42 mmHg (35-46) Arterial Blood pO2 at Patient Temp 62 mmHg (65-108) 59 mmHg (65-108) Arterial Blood HCO3 20 mmol/L (21-28) 14 mmol/L (21-28) Arterial Blood Base Excess -4 mmol/L (-3-3) -14 mmol/L (-3-3) FiO2 60 60 White Blood Count 32.5 x10^3/uL (4.0-11.0) Red Blood Count 2.92 x10^6/uL (4.30-5.70) Hemoglobin 9.1 g/dL (13.0-17.5) Hematocrit 28.7 % (39.0-53.0) Mean Corpuscular Volume 98 fL (79-100) Mean Corpuscular Hemoglobin 31 pg (25-35) Mean Corpuscular Hemoglobin Concent 32 g/dL (31-37) Red Cell Distribution Width 18.7 % (11.5-14.5) Platelet Count 392 x10^3/uL (140-400) Neutrophils (%) (Auto) 95 % (31-73) Lymphocytes (%) (Auto) 2 % (24-48) Monocytes (%) (Auto) 3 % (0-9) Eosinophils (%) (Auto) 0 % (0-3) Basophils (%) (Auto) 0 % (0-3) Neutrophils # (Auto) 30.8 x10^3/uL (1.8-7.7) Lymphocytes # (Auto) 0.8 x10^3/uL (1.0-4.8) Monocytes # (Auto) 0.8 x10^3/uL (0.0-1.1) Eosinophils # (Auto) 0.0 x10^3/uL (0.0-0.7) Basophils # (Auto) 0.1 x10^3/uL (0.0-0.2) Segmented Neutrophils % 39 % (35-66) Band Neutrophils % 53 % (0-9) Lymphocytes % 5 % (24-48) Monocytes % 2 % (0-10) Metamyelocytes % 1 % (0-0) Toxic Vacuolation Slight Platelet Estimate Adequate (ADEQUATE) Polychromasia Slight Sodium Level 140 mmol/L (136-145) Potassium Level 5.2 mmol/L (3.5-5.1) Chloride Level 106 mmol/L (98-107) Carbon Dioxide Level 19 mmol/L (21-32) Anion Gap 15 (6-14) Blood Urea Nitrogen 58 mg/dL (8-26) Creatinine 1.8 mg/dL (0.7-1.3) Estimated GFR (Cockcroft-Gault) 43.4 Glucose Level 123 mg/dL (70-99) Calcium Level 8.4 mg/dL (8.5-10.1) Microbiology 11/29/19 Blood Culture - Preliminary, Resulted NO GROWTH AFTER 1 DAY Medications Current Medications Etomidate (Amidate) 20 mg STK-MED ONCE IV ; Start 11/29/19 at 07:37; Stop 11/29/19 at 07:37; Status DC Succinylcholine Chloride (Anectine) 200 mg STK-MED ONCE .ROUTE ; Start 11/29/19 at 07:38; Stop 11/29/19 at 07:38; Status DC Propofol 50 ml @ As Directed STK-MED ONCE IV ; Start 11/29/19 at 07:39; Stop 11/29/19 at 07:39; Status DC Piperacillin Sod/ Tazobactam Sod 3.375 gm/Sodium Chloride 50 ml @ 100 mls/hr 1X ONCE IV Last administered on 11/29/19at 08:29; Start 11/29/19 at 07:45; Stop 11/29/19 at 08:14; Status DC Propofol 50 ml @ As Directed STK-MED ONCE IV ; Start 11/29/19 at 08:21; Stop 11/29/19 at 08:21; Status DC Sodium Chloride 1,000 ml @ 1,000 mls/hr 1X ONCE IV Last administered on 11/29/19at 08:32; Start 11/29/19 at 07:30; Stop 11/29/19 at 08:30; Status DC Etomidate (Amidate) 20 mg 1X ONCE IV Last administered on 11/29/19at 08:35; Start 11/29/19 at 07:25; Stop 11/29/19 at 08:30; Status DC Succinylcholine Chloride (Anectine) 100 mg 1X ONCE IV Last administered on 11/29/19at 08:31; Start 11/29/19 at 07:25; Stop 11/29/19 at 08:30; Status DC Propofol (Diprivan) 500 mg 1X ONCE IV Last administered on 11/29/19at 08:33; Start 11/29/19 at 08:45; Stop 11/29/19 at 08:46; Status DC Sodium Chloride 1,000 ml @ 1,000 mls/hr 1X ONCE IV Last administered on 11/29/19at 09:09; Start 11/29/19 at 09:00; Stop 11/29/19 at 09:59; Status DC Propofol (Diprivan) 500 mg 1X ONCE IV Last administered on 11/29/19at 09:30; Start 11/29/19 at 09:30; Stop 11/29/19 at 09:31; Status DC Propofol (Diprivan) 200 mg TITRATE PRN IV SEDATION Last administered on 11/29/19at 09:45; Start 11/29/19 at 09:45; Stop 11/29/19 at 09:47; Status DC Propofol 50 ml @ 0.975 mls/ hr 1X ONCE IV Last administered on 11/29/19at 09:50; Start 11/29/19 at 10:00; Stop 11/29/19 at 10:01; Status DC Vancomycin HCl (Vanco Per Pharmacy) 1 each PRN DAILY PRN MC SEE COMMENTS Last administered on 11/29/19at 15:47; Start 11/29/19 at 10:15 Ondansetron HCl (Zofran) 4 mg PRN Q8HRS PRN IV NAUSEA/VOMITING; Start 11/29/19 at 10:15; Stop 11/30/19 at 10:14; Status DC Sodium Chloride 1,000 ml @ 125 mls/hr Q8H IV ; Start 11/29/19 at 10:15; Stop 11/29/19 at 10:54; Status DC Vancomycin HCl 1.5 gm/Sodium Chloride 500 ml @ 250 mls/hr 1X ONCE IV Last administered on 11/29/19at 11:23; Start 11/29/19 at 10:45; Stop 11/29/19 at 12:44; Status DC Acetaminophen (Tylenol) 650 mg Q6HRS PRN PEG MILD PAIN / TEMP > 100.3'F; Start 11/29/19 at 10:30 Sodium Chloride 1,000 ml @ 75 mls/hr CONT PRN IV .; Start 11/29/19 at 10:30; Stop 11/30/19 at 00:15; Status DC Allopurinol (Zyloprim) 100 mg DAILY PEG Last administered on 11/30/19at 08:20; Start 11/30/19 at 09:00 Amiodarone HCl (Cordarone) 200 mg DAILY PEG Last administered on 11/30/19at 08:19; Start 11/30/19 at 09:00 Aspirin (Rosemary Aspirin) 81 mg DAILY PEG ; Start 11/30/19 at 09:00; Stop 11/30/19 at 08:25; Status DC Atorvastatin Calcium (Lipitor) 40 mg QHS PEG Last administered on 11/29/19at 20:03; Start 11/29/19 at 21:00 Metoprolol Tartrate (Lopressor) 50 mg BID PO Last administered on 11/29/19at 20:05; Start 11/29/19 at 21:00 Scopolamine (Transderm-Scop) 1 patch Q3DAYS TD ; Start 11/29/19 at 14:00 Vancomycin HCl (Vancomycin Oral Solution) 125 mg BID PEG Last administered on 11/30/19at 08:23; Start 11/29/19 at 21:00 Famotidine (Pepcid) 20 mg DAILY PEG ; Start 11/30/19 at 09:00; Stop 11/30/19 at 03:05; Status DC Heparin Sodium (Porcine) (Heparin Sodium) 5,000 unit BID SQ Last administered on 11/30/19at 08:21; Start 11/29/19 at 21:00 Piperacillin Sod/ Tazobactam Sod 3.375 gm/Sodium Chloride 50 ml @ 100 mls/hr Q6HRS IV Last administered on 11/30/19at 05:33; Start 11/29/19 at 18:00 Midazolam HCl 100 mg/Sodium Chloride 80 ml @ 0 mls/hr 1X ONCE IV Last administered on 11/29/19at 12:13; Start 11/29/19 at 12:00; Stop 11/29/19 at 12:01; Status DC Norepinephrine Bitartrate 8 mg/ Dextrose 258 ml @ 12.578 mls/ hr CONT PRN IV PER PROTOCOL Last administered on 11/29/19at 13:50; Start 11/29/19 at 13:00; Stop 11/29/19 at 16:46; Status DC Vasopressin 20 unit/Dextrose 101 ml @ 12 mls/hr CONT PRN IV SEE I/O RECORD Last administered on 11/30/19at 07:39; Start 11/29/19 at 15:15 Vancomycin HCl 1 gm/Sodium Chloride 250 ml @ 250 mls/hr Q24H IV ; Start 11/30/19 at 11:00 Vancomycin HCl (Vancomycin Trough Level) 1 each 1X ONCE MC ; Start 12/01/19 at 10:30; Stop 12/01/19 at 10:31 Fentanyl Citrate 30 ml @ 0 mls/hr CONT PRN IV SEE PROTOCOL; Start 11/29/19 at 16:45 Midazolam HCl 100 ml @ 0 mls/hr CONT PRN IV SEE PROTOCOL Last administered on 11/30/19at 09:42; Start 11/29/19 at 16:45 Norepinephrine Bitartrate 32 mg/ Dextrose 250 ml @ 3.047 mls/ hr CONT PRN IV PER PROTOCOL Last administered on 11/30/19at 09:05; Start 11/29/19 at 17:00 Sodium Chloride 1,000 ml @ 125 mls/hr 1X PRN PRN IV SEE COMMENTS; Start at 00:15 Pantoprazole Sodium (PROTONIX VIAL for IV PUSH) 40 mg DAILYAC IVP ; Start 11/30/19 at 07:30; Stop 11/30/19 at 07:28; Status DC Sodium Chloride 500 ml @ 500 mls/hr 1X ONCE IV Last administered on 11/30/19at 03:30; Start 11/30/19 at 03:30; Stop 11/30/19 at 04:29; Status DC Linezolid/Dextrose 300 ml @ 300 mls/hr Q12HR IV ; Start 11/30/19 at 09:00; Status UNV Albumin Human 500 ml @ 125 mls/hr 1X ONCE IV Last administered on 11/30/19at 08:18; Start 11/30/19 at 07:00; Stop 11/30/19 at 10:59 Sodium Bicarbonate 150 meq/Dextrose 1,150 ml @ 125 mls/hr Q9H12M IV Last administered on 11/30/19at 07:40; Start 11/30/19 at 07:00 Pantoprazole Sodium 80 mg/ Sodium Chloride 100 ml @ 10 mls/hr Q10H IV Last administered on 11/30/19at 08:18; Start 11/30/19 at 07:30 Pantoprazole Sodium (PROTONIX VIAL for IV PUSH) 80 mg 1X ONCE IVP Last administered on 11/30/19at 08:19; Start 11/30/19 at 07:30; Stop 11/30/19 at 07:31; Status DC Metoclopramide HCl (Reglan Vial) 10 mg 1X ONCE IVP Last administered on 11/30/19at 08:20; Start 11/30/19 at 07:30; Stop 11/30/19 at 07:40; Status DC Aspirin (Aspirin Chewable) 81 mg DAILYWBKFT PO Last administered on 11/30/19at 08:46; Start 11/30/19 at 08:30 Active Scripts Active Reported Transderm-Scop (Scopolamine) 1 Each Patch.td72 1 Patch TP Q3DAYS Probiotic (Lactobacillus Combo No.11) 1 Each Cap.sprink 1 Each PO DAILY Metoprolol Tartrate 50 Mg Tablet 1 Tab PEG BID Lipitor (Atorvastatin Calcium) 40 Mg Tablet 1 Tab PEG QHS Calcium 500 + Vit D 200 Caplet (Calcium Carbonate/Vitamin D3) 1 Each Tablet 1 Tab PEG DAILY 30 Days Aspirin 81 Mg Tab.chew 1 Tab PEG DAILY Amiodarone Hcl 200 Mg Tablet 1 Tab PEG DAILY Allopurinol 100 Mg Tablet 1 Tab PEG DAILY Acetaminophen Oral Liquid (Acetaminophen) 650 Mg/20.3 Ml Solution 650 Mg PO PRN Q4HRS PRN Vitals/I & O Vital Sign - Last 24 Hours 11/29/19 11/29/19 11/29/19 11/29/19 10:40 10:50 11:00 11:10 Pulse 98 101 103 104 B/P (MAP) 99/56 (70) 124/58 (80) 110/55 (73) 100/55 (70) Pulse Ox 93 93 93 93 O2 Delivery Ventilator Ventilator Ventilator Ventilator 11/29/19 11/29/19 11/29/19 11/29/19 11:20 11:30 11:40 11:41 Pulse 104 99 107 B/P (MAP) 102/55 (71) 91/50 (64) 104/51 (68) Pulse Ox 92 91 91 92 O2 Delivery Ventilator Ventilator Ventilator Ventilator 11/29/19 11/29/19 11/29/19 11/29/19 11:50 12:00 12:10 12:18 Pulse 104 104 104 105 B/P (MAP) 93/53 (66) 88/53 (65) 93/55 (68) 77/46 (56) Pulse Ox 90 91 94 93 O2 Delivery Ventilator Ventilator Ventilator Ventilator 11/29/19 11/29/19 11/29/19 11/29/19 12:30 12:40 12:50 13:00 Pulse 111 110 109 106 B/P (MAP) 78/42 (54) 78/46 (57) 65/36 (46) 73/49 (57) Pulse Ox 93 92 92 92 O2 Delivery Ventilator Ventilator Ventilator Ventilator 9/111/29/19 11/29/19 11/29/19 13:13 13:29 13:40 13:50 Pulse 105 105 99 103 B/P (MAP) 86/48 (61) 84/48 (60) 59/39 (46) 64/36 (45) Pulse Ox 94 91 88 O2 Delivery Ventilator Ventilator Ventilator Ventilator 11/29/19 11/29/19 11/29/19 11/29/19 13:55 14:00 14:15 14:30 Pulse 101 103 102 102 Resp 20 20 B/P (MAP) 94/45 (61) 97/46 (63) 78/54 (62) 85/52 (63) Pulse Ox 87 88 85 88 O2 Delivery Ventilator Ventilator Ventilator Ventilator 11/29/19 11/29/19 11/29/19 11/29/19 14:45 14:52 15:00 15:15 Temp 97.3 97.3 Pulse 104 104 100 Resp 20 20 20 B/P (MAP) 52/37 (42) 62/36 (45) 85/53 (64) Pulse Ox 90 91 91 O2 Delivery Ventilator Mechanical Ventilator Ventilator Ventilator 11/29/19 11/29/19 11/29/19 11/29/19 15:30 15:45 16:00 16:06 Pulse 106 106 106 Resp 20 20 20 B/P (MAP) 74/46 (55) 73/44 (54) 81/53 (62) Pulse Ox 93 96 95 O2 Delivery Ventilator Ventilator Ventilator Mechanical Ventilator 11/29/19 11/29/19 11/29/19 11/29/19 16:07 16:15 17:00 17:15 Pulse 110 120 120 Resp 20 20 20 B/P (MAP) 81/51 (61) 67/51 (56) 138/40 (72) Pulse Ox 93 94 94 94 O2 Delivery Ventilator Ventilator Ventilator Ventilator 11/29/19 11/29/19 11/29/19 11/29/19 17:25 17:30 18:04 19:44 Temp 100.1 100.1 Pulse 122 118 Resp 20 20 B/P (MAP) 119/55 (76) 80/58 (65) Pulse Ox 95 93 95 O2 Delivery Ventilator Ventilator Ventilator Ventilator 11/29/19 11/29/19 11/29/19 11/29/19 20:00 20:00 20:05 21:00 Temp 100.4 100.4 Pulse 136 137 134 Resp 20 20 B/P (MAP) 95/54 (68) 95/54 116/59 (78) Pulse Ox 95 96 O2 Delivery Ventilator Mechanical Ventilator Ventilator O2 Flow Rate 25.0 11/29/19 11/29/19 11/30/19 11/30/19 22:00 23:00 00:00 00:00 Temp 97.8 97.8 Pulse 128 122 114 Resp 20 B/P (MAP) 116/69 (85) 127/49 (75) 107/45 (65) Pulse Ox 94 96 94 O2 Delivery Ventilator Ventilator Ventilator Mechanical Ventilator O2 Flow Rate 25.0 11/30/19 11/30/19 11/30/19 11/30/19 00:09 01:00 02:00 03:00 Pulse 107 106 106 Resp 20 B/P (MAP) 91/51 (64) 99/46 (63) 102/53 (69) Pulse Ox 95 94 91 94 O2 Delivery Ventilator Ventilator Ventilator Ventilator 11/30/19 11/30/19 11/30/19 11/30/19 04:00 04:00 04:15 05:00 Temp 97.9 97.9 Pulse 102 102 Resp 20 B/P (MAP) 103/48 (66) 94/50 (65) Pulse Ox 96 97 96 O2 Delivery Mechanical Ventilator Ventilator Ventilator Ventilator O2 Flow Rate 25.0 11/30/19 11/30/19 11/30/19 11/30/19 06:00 07:00 07:30 08:00 Temp 97.1 97.1 Pulse 99 100 100 102 Resp 20 24 B/P (MAP) 95/45 (62) 100/46 (64) 104/50 (68) 117/58 (77) Pulse Ox 95 95 95 94 O2 Delivery Ventilator Ventilator Ventilator Ventilator 11/30/19 11/30/19 11/30/19 11/30/19 08:00 08:19 08:30 08:40 Pulse 100 102 Resp 24 B/P (MAP) 100/46 108/59 (75) Pulse Ox 97 97 O2 Delivery Mechanical Ventilator Ventilator Ventilator 11/30/19 11/30/19 09:00 09:00 Pulse 100 102 Resp 24 B/P (MAP) 100/46 97/48 (64) Pulse Ox 96 O2 Delivery Ventilator Intake and Output 911/29/19 11/30/19 15:00 23:00 07:00 Intake Total 2550 ml 4069 ml Output Total 200 ml 60 ml Balance 2550 ml -200 ml 4009 ml Justifications for Admission Other Justification PHILLY FONSECA MD Nov 30, 2019 10:40
[2019-11-30] MEDS ORDERED: VANCOMYCIN 1 GM in IV NORMAL SALINE 250ML 250 ML IV SCH (11:00)
--- NOTE | 2019-11-30 11:32 | PDOC ---
PULMONARY PROGRESS NOTES DATE: 11/30/19 TIME: 11:25 Subjective remains intubated/sedated on max doses of two pressors not making urine Vitals Vital Signs Date Time Temp Pulse Resp B/P (MAP) Pulse Ox O2 Delivery O2 Flow Rate FiO2 11/30/19 11:00 98 24 131/63 (85) 100 Ventilator 11/30/19 08:00 97.1 97.1 11/30/19 04:00 25.0 Comments visual exam done due to COVID pandemia no in distress/ no rash/ mild edema Labs Laboratory Tests Test 11/29/19 07:25 11/29/19 07:30 11/29/19 07:35 11/29/19 07:36 White Blood Count 29.1 x10^3/uL (4.0-11.0) Red Blood Count 3.26 x10^6/uL (4.30-5.70) Hemoglobin 10.2 g/dL (13.0-17.5) Hematocrit 31.2 % (39.0-53.0) Mean Corpuscular Volume 96 fL (79-100) Mean Corpuscular Hemoglobin 31 pg (25-35) Mean Corpuscular Hemoglobin Concent 33 g/dL (31-37) Red Cell Distribution Width 19.2 % (11.5-14.5) Platelet Count 454 x10^3/uL (140-400) Neutrophils (%) (Auto) 79 % (31-73) Lymphocytes (%) (Auto) 16 % (24-48) Monocytes (%) (Auto) 3 % (0-9) Eosinophils (%) (Auto) 0 % (0-3) Basophils (%) (Auto) 1 % (0-3) Neutrophils # (Auto) 23.0 x10^3/uL (1.8-7.7) Lymphocytes # (Auto) 4.8 x10^3/uL (1.0-4.8) Monocytes # (Auto) 1.0 x10^3/uL (0.0-1.1) Eosinophils # (Auto) 0.1 x10^3/uL (0.0-0.7) Basophils # (Auto) 0.2 x10^3/uL (0.0-0.2) Segmented Neutrophils % 73 % (35-66) Lymphocytes % 22 % (24-48) Monocytes % 5 % (0-10) Platelet Estimate Increased (ADEQUATE) Prothrombin Time 14.6 SEC (11.7-14.0) Prothromb Time International Ratio 1.2 (0.8-1.1) Activated Partial Thromboplast Time 26 SEC (24-38) Lactic Acid Level 2.3 mmol/L (0.4-2.0) Coronavirus (PCR) Not detected (Not Detected) Urine Collection Type Unknown Urine Color Yellow Urine Clarity Clear Urine pH 6.0 (<5.0-8.0) Urine Specific [place] 1.010 (1.000-1.030) Urine Protein Negative mg/dL (NEG-TRACE) Urine Glucose (UA) Negative mg/dL (NEG) Urine Ketones (Stick) Negative mg/dL (NEG) Urine Blood Negative (NEG) Urine Nitrite Negative (NEG) Urine Bilirubin Negative (NEG) Urine Urobilinogen Dipstick 0.2 mg/dL (0.2 mg/dL) Urine Leukocyte Esterase Negative (NEG) Urine RBC 0 /HPF (0-2) Urine WBC Occ /HPF (0-4) Urine Squamous Epithelial Cells Occ /LPF Urine Amorphous Sediment Present /HPF Urine Bacteria 0 /HPF (0-FEW) Urine Mucus Slight /LPF O2 Saturation 95 % (92-99) Arterial Blood pH 7.25 (7.35-7.45) Arterial Blood pCO2 at Patient Temp 57 mmHg (35-46) Arterial Blood pO2 at Patient Temp 91 mmHg (65-108) Arterial Blood HCO3 24 mmol/L (21-28) Arterial Blood Base Excess -4 mmol/L (-3-3) FiO2 100 Test 11/29/19 08:15 11/29/19 10:10 11/29/19 11:00 11/29/19 11:49 Troponin I Quantitative 0.108 ng/mL (0.000-0.055) YM-Ucp-L-Type Natriuretic Peptide 444 pg/mL (0-449) Sodium Level 138 mmol/L (136-145) Potassium Level 4.3 mmol/L (3.5-5.1) Chloride Level 107 mmol/L (98-107) Carbon Dioxide Level 27 mmol/L (21-32) Anion Gap 4 (6-14) Blood Urea Nitrogen 51 mg/dL (8-26) Creatinine 0.8 mg/dL (0.7-1.3) Estimated GFR (Cockcroft-Gault) 110.6 BUN/Creatinine Ratio 64 (6-20) Glucose Level 166 mg/dL (70-99) Calcium Level 9.0 mg/dL (8.5-10.1) Magnesium Level 1.9 mg/dL (1.8-2.4) Total Bilirubin 0.4 mg/dL (0.2-1.0) Aspartate Amino Transf (AST/SGOT) 25 U/L (15-37) Alanine Aminotransferase (ALT/SGPT) 33 U/L (16-63) Alkaline Phosphatase 94 U/L (46-116) Total Protein 6.1 g/dL (6.4-8.2) Albumin 1.8 g/dL (3.4-5.0) Albumin/Globulin Ratio 0.4 (1.0-1.7) Lactic Acid Level 3.0 mmol/L (0.4-2.0) O2 Saturation 90 % (92-99) Arterial Blood pH 7.37 (7.35-7.45) Arterial Blood pCO2 at Patient Temp 36 mmHg (35-46) Arterial Blood pO2 at Patient Temp 62 mmHg (65-108) Arterial Blood HCO3 20 mmol/L (21-28) Arterial Blood Base Excess -4 mmol/L (-3-3) FiO2 60 Test 11/30/19 03:20 11/30/19 08:50 White Blood Count 32.5 x10^3/uL (4.0-11.0) Red Blood Count 2.92 x10^6/uL (4.30-5.70) Hemoglobin 9.1 g/dL (13.0-17.5) Hematocrit 28.7 % (39.0-53.0) Mean Corpuscular Volume 98 fL (79-100) Mean Corpuscular Hemoglobin 31 pg (25-35) Mean Corpuscular Hemoglobin Concent 32 g/dL (31-37) Red Cell Distribution Width 18.7 % (11.5-14.5) Platelet Count 392 x10^3/uL (140-400) Neutrophils (%) (Auto) 95 % (31-73) Lymphocytes (%) (Auto) 2 % (24-48) Monocytes (%) (Auto) 3 % (0-9) Eosinophils (%) (Auto) 0 % (0-3) Basophils (%) (Auto) 0 % (0-3) Neutrophils # (Auto) 30.8 x10^3/uL (1.8-7.7) Lymphocytes # (Auto) 0.8 x10^3/uL (1.0-4.8) Monocytes # (Auto) 0.8 x10^3/uL (0.0-1.1) Eosinophils # (Auto) 0.0 x10^3/uL (0.0-0.7) Basophils # (Auto) 0.1 x10^3/uL (0.0-0.2) Segmented Neutrophils % 39 % (35-66) Band Neutrophils % 53 % (0-9) Lymphocytes % 5 % (24-48) Monocytes % 2 % (0-10) Metamyelocytes % 1 % (0-0) Toxic Vacuolation Slight Platelet Estimate Adequate (ADEQUATE) Polychromasia Slight Sodium Level 140 mmol/L (136-145) Potassium Level 5.2 mmol/L (3.5-5.1) Chloride Level 106 mmol/L (98-107) Carbon Dioxide Level 19 mmol/L (21-32) Anion Gap 15 (6-14) Blood Urea Nitrogen 58 mg/dL (8-26) Creatinine 1.8 mg/dL (0.7-1.3) Estimated GFR (Cockcroft-Gault) 43.4 Glucose Level 123 mg/dL (70-99) Calcium Level 8.4 mg/dL (8.5-10.1) O2 Saturation 87 % (92-99) Arterial Blood pH 7.15 (7.35-7.45) Arterial Blood pCO2 at Patient Temp 42 mmHg (35-46) Arterial Blood pO2 at Patient Temp 59 mmHg (65-108) Arterial Blood HCO3 14 mmol/L (21-28) Arterial Blood Base Excess -14 mmol/L (-3-3) FiO2 60 Laboratory Tests Test 11/29/19 11:49 11/30/19 03:20 11/30/19 08:50 O2 Saturation 90 % (92-99) 87 % (92-99) Arterial Blood pH 7.37 (7.35-7.45) 7.15 (7.35-7.45) Arterial Blood pCO2 at Patient Temp 36 mmHg (35-46) 42 mmHg (35-46) Arterial Blood pO2 at Patient Temp 62 mmHg (65-108) 59 mmHg (65-108) Arterial Blood HCO3 20 mmol/L (21-28) 14 mmol/L (21-28) Arterial Blood Base Excess -4 mmol/L (-3-3) -14 mmol/L (-3-3) FiO2 60 60 White Blood Count 32.5 x10^3/uL (4.0-11.0) Red Blood Count 2.92 x10^6/uL (4.30-5.70) Hemoglobin 9.1 g/dL (13.0-17.5) Hematocrit 28.7 % (39.0-53.0) Mean Corpuscular Volume 98 fL (79-100) Mean Corpuscular Hemoglobin 31 pg (25-35) Mean Corpuscular Hemoglobin Concent 32 g/dL (31-37) Red Cell Distribution Width 18.7 % (11.5-14.5) Platelet Count 392 x10^3/uL (140-400) Neutrophils (%) (Auto) 95 % (31-73) Lymphocytes (%) (Auto) 2 % (24-48) Monocytes (%) (Auto) 3 % (0-9) Eosinophils (%) (Auto) 0 % (0-3) Basophils (%) (Auto) 0 % (0-3) Neutrophils # (Auto) 30.8 x10^3/uL (1.8-7.7) Lymphocytes # (Auto) 0.8 x10^3/uL (1.0-4.8) Monocytes # (Auto) 0.8 x10^3/uL (0.0-1.1) Eosinophils # (Auto) 0.0 x10^3/uL (0.0-0.7) Basophils # (Auto) 0.1 x10^3/uL (0.0-0.2) Segmented Neutrophils % 39 % (35-66) Band Neutrophils % 53 % (0-9) Lymphocytes % 5 % (24-48) Monocytes % 2 % (0-10) Metamyelocytes % 1 % (0-0) Toxic Vacuolation Slight Platelet Estimate Adequate (ADEQUATE) Polychromasia Slight Sodium Level 140 mmol/L (136-145) Potassium Level 5.2 mmol/L (3.5-5.1) Chloride Level 106 mmol/L (98-107) Carbon Dioxide Level 19 mmol/L (21-32) Anion Gap 15 (6-14) Blood Urea Nitrogen 58 mg/dL (8-26) Creatinine 1.8 mg/dL (0.7-1.3) Estimated GFR (Cockcroft-Gault) 43.4 Glucose Level 123 mg/dL (70-99) Calcium Level 8.4 mg/dL (8.5-10.1) Medications Active Scripts Medications Dose Route/Sig Max Daily Dose Days Date Category Transderm-Scop (Scopolamine) 1 Each Patch.td72 1 Patch TP Q3DAYS 11/29/19 Reported Probiotic (Lactobacillus Combo No.11) 1 Each Cap.sprink 1 Each PO DAILY 11/29/19 Reported Metoprolol Tartrate 50 Mg Tablet 1 Tab PEG BID 11/29/19 Reported Lipitor (Atorvastatin Calcium) 40 Mg Tablet 1 Tab PEG QHS 11/29/19 Reported Calcium 500 + Vit D 200 Caplet (Calcium Carbonate/Vitamin D3) 1 Each Tablet 1 Tab PEG DAILY 30 11/29/19 Reported Aspirin 81 Mg Tab.chew 1 Tab PEG DAILY 11/29/19 Reported Amiodarone Hcl 200 Mg Tablet 1 Tab PEG DAILY 11/29/19 Reported Allopurinol 100 Mg Tablet 1 Tab PEG DAILY 11/29/19 Reported Acetaminophen Oral Liquid (Acetaminophen) 650 Mg/20.3 Ml Solution 650 Mg PO PRN Q4HRS PRN 11/29/19 Reported Impression . 1. Acute hypoxic and hypercapnic respiratory failure, likely secondary to combination of pneumonia and possible sepsis. 2. Marked leukocytosis related to pneumonia. Need to rule out all other sources of infection as well. 3. 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 Status post percutaneous endoscopic gastrostomy tube placement. 4. Abnormal chest x-ray consistent with pneumonia. 5. History of paroxysmal atrial fibrillation. 6. Severe protein-calorie malnutrition. 7. Prerenal azotemia., now no sig urine output 8. Mildly increased troponin level. 9. shock/septic Plan . 1. Discussed with the respiratory therapist and RN 2. We will continue with present assist control mode and make changes based on the ABGs.needs bicarb IV 3. Broad-spectrum antibiotics. 4. Continue to monitor blood pressure closely./on max 2 pressors 5. Sedation. 6. We will try to reach the patient's DPOA to assess for advanced directives, especially in the setting of multiple system organ failure and poor quality of life before intubation. 7. DVT prophylaxis with subcutaneous heparin. 8. Stress ulcer prophylaxis. 9. We will follow along with you. Discussed with RN and RT CRITICAL CARE TIME: 30 minutes. IWONA SMILEY MD Nov 30, 2019 11:32
[2019-11-30] MEDS ORDERED: PIPERACILLIN/TAZOBACTAM 2.25 GM in IV NORMAL SALINE 50ML 50 ML IV SCH (12:00)
--- NOTE | 2019-11-30 12:35 | PDOC ---
Infectious Disease Note Vital Signs: Vital Signs Vital Signs Date Time Temp Pulse Resp B/P (MAP) Pulse Ox O2 Delivery O2 Flow Rate FiO2 11/30/19 12:00 Mechanical Ventilator 11/30/19 12:00 96.5 100 24 180/62 (101) 100 96.5 11/30/19 04:00 25.0 Medications: Inpatient Meds: Current Medications Medications (Trade) Dose Ordered Sig/Jaleesa Start Time Stop Time Status Last Admin Dose Admin Acetaminophen (Tylenol) 650 mg Q6HRS PRN 11/29/19 10:30 Albumin Human 500 ml @ 125 mls/hr 1X ONCE 11/30/19 07:00 11/30/19 10:59 DC 11/30/19 08:18 125 MLS/HR Allopurinol (Zyloprim) 100 mg DAILY 11/30/19 09:00 11/30/19 08:20 100 MG Amiodarone HCl (Cordarone) 200 mg DAILY 11/30/19 09:00 11/30/19 08:19 200 MG Aspirin (Aspirin Chewable) 81 mg [id number] 11/30/19 08:30 11/30/19 08:46 81 MG Aspirin (Rosemary Aspirin) 81 mg DAILY 11/30/19 09:00 11/30/19 08:25 DC Atorvastatin Calcium (Lipitor) 40 mg QHS 11/29/19 21:00 11/29/19 20:03 40 MG Etomidate (Amidate) 20 mg 1X ONCE 11/29/19 07:25 11/29/19 08:30 DC 11/29/19 08:35 20 MG Famotidine (Pepcid) 20 mg DAILY 11/30/19 09:00 11/30/19 03:05 DC Fentanyl Citrate 30 ml @ 0 mls/hr CONT PRN 11/29/19 16:45 Heparin Sodium (Porcine) (Heparin Sodium) 5,000 unit BID 11/29/19 21:00 11/30/19 10:39 DC 11/30/19 08:21 5,000 UNIT Linezolid/Dextrose 300 ml @ 300 mls/hr Q12HR 11/30/19 11:00 11/30/19 11:08 300 MLS/HR Metoclopramide HCl (Reglan Vial) 10 mg 1X ONCE 11/30/19 07:30 11/30/19 07:40 DC 11/30/19 08:20 10 MG Metoprolol Tartrate (Lopressor) 50 mg BID 11/29/19 21:00 11/29/19 20:05 50 MG Midazolam HCl 100 ml @ 0 mls/hr CONT PRN 11/29/19 16:45 11/30/19 09:42 8 MLS/HR Midazolam HCl 100 mg/Sodium Chloride 80 ml @ 0 mls/hr 1X ONCE 11/29/19 12:00 11/29/19 12:01 DC 11/29/19 12:13 5 MLS/HR Norepinephrine Bitartrate 32 mg/ Dextrose 250 ml @ 3.047 mls/ hr CONT PRN 11/29/19 17:00 11/30/19 09:05 30.5 MLS/HR Norepinephrine Bitartrate 8 mg/ Dextrose 258 ml @ 12.578 mls/ hr CONT PRN 11/29/19 13:00 11/29/19 16:46 DC 11/29/19 13:50 12.578 MLS/HR Ondansetron HCl (Zofran) 4 mg PRN Q8HRS PRN 11/29/19 10:15 11/30/19 10:14 DC Pantoprazole Sodium (PROTONIX VIAL for IV PUSH) 80 mg 1X ONCE 11/30/19 07:30 11/30/19 07:31 DC 11/30/19 08:19 80 MG Pantoprazole Sodium 80 mg/ Sodium Chloride 100 ml @ 10 mls/hr Q10H 11/30/19 07:30 11/30/19 08:18 10 MLS/HR Piperacillin Sod/ Tazobactam Sod 2.25 gm/Sodium Chloride 50 ml @ 100 mls/hr Q6HRS 11/30/19 12:00 11/30/19 11:52 100 MLS/HR Piperacillin Sod/ Tazobactam Sod 3.375 gm/Sodium Chloride 50 ml @ 100 mls/hr Q8HRS 11/30/19 14:00 11/30/19 10:44 DC Propofol 50 ml @ 0.975 mls/ hr 1X ONCE 11/29/19 10:00 11/29/19 10:01 DC 11/29/19 09:50 9.8 MLS/HR Propofol (Diprivan) 200 mg TITRATE PRN 11/29/19 09:45 11/29/19 09:47 DC 11/29/19 09:45 200 MG Scopolamine (Transderm-Scop) 1 patch Q3DAYS 11/29/19 14:00 Sodium Bicarbonate 150 meq/Dextrose 1,150 ml @ 125 mls/hr Q9H12M 11/30/19 07:00 11/30/19 07:40 125 MLS/HR Sodium Chloride 500 ml @ 500 mls/hr 1X ONCE 11/30/19 03:30 11/30/19 04:29 DC 11/30/19 03:30 500 MLS/HR Succinylcholine Chloride (Anectine) 100 mg 1X ONCE 11/29/19 07:25 11/29/19 08:30 DC 11/29/19 08:31 100 MG Vancomycin HCl (Vanco Per Pharmacy) 1 each PRN DAILY PRN 11/29/19 10:15 11/30/19 10:42 DC 11/29/19 15:47 1 EACH Vancomycin HCl (Vancomycin Trough Level) 1 each 1X ONCE 12/01/19 10:30 12/01/19 10:31 Cancel Vancomycin HCl (Vancomycin Oral Solution) 125 mg BID 11/29/19 21:00 11/30/19 08:23 125 MG Vancomycin HCl 1.5 gm/Sodium Chloride 500 ml @ 250 mls/hr 1X ONCE 11/29/19 10:45 11/29/19 12:44 DC 11/29/19 11:23 250 MLS/HR Vancomycin HCl 1 gm/Sodium Chloride 250 ml @ 250 mls/hr Q24H 11/30/19 11:00 11/30/19 10:39 DC Vasopressin 20 unit/Dextrose 101 ml @ 12 mls/hr CONT PRN 11/29/19 15:15 11/30/19 07:39 12 MLS/HR Labs: Lab Laboratory Tests Test 11/30/19 03:20 11/30/19 08:50 White Blood Count 32.5 x10^3/uL (4.0-11.0) Red Blood Count 2.92 x10^6/uL (4.30-5.70) Hemoglobin 9.1 g/dL (13.0-17.5) Hematocrit 28.7 % (39.0-53.0) Mean Corpuscular Volume 98 fL (79-100) Mean Corpuscular Hemoglobin 31 pg (25-35) Mean Corpuscular Hemoglobin Concent 32 g/dL (31-37) Red Cell Distribution Width 18.7 % (11.5-14.5) Platelet Count 392 x10^3/uL (140-400) Neutrophils (%) (Auto) 95 % (31-73) Lymphocytes (%) (Auto) 2 % (24-48) Monocytes (%) (Auto) 3 % (0-9) Eosinophils (%) (Auto) 0 % (0-3) Basophils (%) (Auto) 0 % (0-3) Neutrophils # (Auto) 30.8 x10^3/uL (1.8-7.7) Lymphocytes # (Auto) 0.8 x10^3/uL (1.0-4.8) Monocytes # (Auto) 0.8 x10^3/uL (0.0-1.1) Eosinophils # (Auto) 0.0 x10^3/uL (0.0-0.7) Basophils # (Auto) 0.1 x10^3/uL (0.0-0.2) Segmented Neutrophils % 39 % (35-66) Band Neutrophils % 53 % (0-9) Lymphocytes % 5 % (24-48) Monocytes % 2 % (0-10) Metamyelocytes % 1 % (0-0) Toxic Vacuolation Slight Platelet Estimate Adequate (ADEQUATE) Polychromasia Slight Sodium Level 140 mmol/L (136-145) Potassium Level 5.2 mmol/L (3.5-5.1) Chloride Level 106 mmol/L (98-107) Carbon Dioxide Level 19 mmol/L (21-32) Anion Gap 15 (6-14) Blood Urea Nitrogen 58 mg/dL (8-26) Creatinine 1.8 mg/dL (0.7-1.3) Estimated GFR (Cockcroft-Gault) 43.4 Glucose Level 123 mg/dL (70-99) Calcium Level 8.4 mg/dL (8.5-10.1) O2 Saturation 87 % (92-99) Arterial Blood pH 7.15 (7.35-7.45) Arterial Blood pCO2 at Patient Temp 42 mmHg (35-46) Arterial Blood pO2 at Patient Temp 59 mmHg (65-108) Arterial Blood HCO3 14 mmol/L (21-28) Arterial Blood Base Excess -14 mmol/L (-3-3) FiO2 60 Objective: Assessment: Patient seen and examined ID consult dictated Plan: Plan of Care Thank you GIFTY DHILLON MD Nov 30, 2019 12:35
[2019-11-30] MEDS: MICAFUNGIN 100 MG in IV DEXTROSE 5% 100ML 100 ML IV SCH (13:11)
[2019-11-30] MEDS ORDERED: DAPTOmycin (GENERIC) IVPB 340 MG in IV NORMAL SALINE 50ML 50 ML IV ONE (13:30)
[2019-11-30] MEDS ORDERED: PIPERACILLIN/TAZOBACTAM 3.375 GM in IV NORMAL SALINE 50ML 50 ML IV SCH (14:00)
--- NOTE | 2019-11-30 14:24 | NUR ---
SS following for discharge planning. SS reviewed pt chart and discussed with pt RN. Pt is LTC resident from [facility], ; fax [phone]. COVID19 negative. Pt currently on the vent. Pt on IV Meropenem, IV Micafungin, and IV Zyvox. SS will continue to follow for discharge planning.
[2019-11-30] MEDS: MEROPENEM 500 MG in IV NORMAL SALINE 50ML 50 ML IV SCH ×2 (14:38→22:11)
--- NOTE | 2019-11-30 16:33 | RAD ---
EXAM: CT Chest, Abdomen, and Pelvis without IV contrast INDICATION: Reason: sepsis / Spl. Instructions: / History: TECHNIQUE: Multi-detector row CT images were acquired from the thoracic inlet through the ischial tuberosities without the use of IV contrast. Sagittal and coronal images were acquired from the transaxial data. All CT scans performed at this facility utilize dose optimization techniques as appropriate to the exam, including the following: Automated exposure control and adjustment of the mA and/or KV according to patient size (this includes techniques or standardized protocols for targeted exams where dose is indication/reason for exam). ORAL CONTRAST: Not administered COMPARISON: Chest x-ray earlier same day FINDINGS: The absence of IV contrast limits evaluation of soft tissue pathology. CHEST: CARDIOVASCULAR: Unremarkable MEDIASTINUM & GUSTAVO: Patient is intubated, ET tube terminating 2.5 cm above the payam. Enteric tube passes below the diaphragms to terminates in the stomach. Surgical changes from previous right upper lobectomy are present with multiple surgical clips at the right hilum. There is ill-defined soft tissue fullness in this area that particular reflect postoperative scarring. LUNGS: Lobar consolidation in the left lower lobe with minimal sparing of the anterior basal segment is present along with more diffuse reticulonodular densities in the remaining lobes.. No evidence of a lung abscess PLEURAL SPACE: Possible trace associated left pleural effusion. No pneumothorax. OSSEOUS & SOFT TISSUE: Unremarkable ABDOMEN/PELVIS: LIVER: Unremarkable BILIARY SYSTEM: Gallbladder is unremarkable. Bile ducts are not dilated. PANCREAS: Unremarkable SPLEEN: Unremarkable ADRENALS: Unremarkable KIDNEYS & URETERS: Bilateral renal cortical cysts, requiring no additional imaging follow-up are noted, largest measuring 7.4 cm of the superior pole left kidney. BLADDER: Decompressed by a Patel catheter. REPRODUCTIVE ORGANS: Prostate gland is enlarged, measuring 5.4 cm in diameter. GASTROINTESTINAL: There are loops of small bowel present in a left inguinal hernia. No findings of bowel obstruction, perforation or acute inflammation. Scattered colonic diverticuli. Evaluation is slightly limited by incomplete distention, especially the large bowel. There is questionable wall thickening in the proximal ascending colon. It is difficult to assess for mass in this location (coronal image 19 of series 8 this illustrates this finding). A percutaneous gastrostomy tube is also present. The appendix is normal. MESENTERY/PERITONEUM/RETROPERITONEUM: Unremarkable VASCULAR: Scattered calcifications. No aneurysm of the abdominal aorta and its major branch vessels. LYMPH NODES: No adenopathy OSSEOUS & SOFT TISSUES: Lumbar spinal degenerative changes and osteopenia. IMPRESSION: 1. Multifocal reticulonodular densities in the lungs bilaterally with more confluent consolidation in the left lower lobe consistent with lobar pneumonia. No evidence of necrotizing pneumonia or lung abscess. 2. No definite acute findings in the abdomen or pelvis with equivocal wall thickening in the ascending colon that is recommended for elective clinical and imaging follow-up when clinically feasible. Electronically signed by: Andrea Farias MD (11/30/2019 4:30 PM) [id number]
[2019-11-30] MEDS: ATORVASTATIN CALCIUM 40 MG TABLET. PEG SCH (21:10)
--- NOTE | 2019-11-30 22:14 | CONS ---
DATE OF CONSULTATION: 11/30/2019 REFERRING PHYSICIAN: Dr. Mina. REASON FOR CONSULTATION: Antibiotic management. HISTORY OF PRESENT ILLNESS: An 89-year-old male with history of CVA, global aphasia, right-sided hemiparesis, oropharyngeal dysphagia with PEG placement, prolonged recent hospitalization, atrial fibrillation, history of lung cancer, hypertension, hyperlipidemia, paroxysmal atrial fibrillation, anemia and C. diff colitis, who was admitted at [facility] for a prolonged period of time and then transferred to [facility] from which he was transferred [facility] last month. He was brought to ER after he was found to be unresponsive to verbal stimuli and in respiratory distress. Chest x-ray showed bilateral infiltrates. He was intubated. White cell count was elevated at 29.1. The patient's temperature was 96.6. Creatinine was 0.8, this morning is 1.8. Troponin was elevated. Albumin was 1.8, BUN was 51. Lactate was 2.3, hemoglobin of 10.2. Coronavirus PCR was negative. He was started on IV vancomycin and Zosyn, admitted to ICU. ID consult has been requested for antibiotic management. Today, the patient remains intubated, unresponsive on Levophed. Creatinine was high at 1.8 this morning. He was also started on linezolid. PAST MEDICAL HISTORY: History of CVA, dysphagia, PEG tube placement, atrial fibrillation, on amiodarone, global aphasia, hypertension, hyperlipidemia, anemia, history of CVA with right-sided hemiparesis, history of lung cancer, history of Clostridium difficile colitis. SOCIAL HISTORY: No smoking, alcohol or drugs reported. residential resident. REVIEW OF SYSTEMS: Unable to obtain. CURRENT MEDICATIONS: Zosyn, linezolid, amiodarone, allopurinol, aspirin, pantoprazole, vancomycin, metoprolol, atorvastatin, norepinephrine, midazolam, vasopressin, scopolamine, and acetaminophen. ALLERGIES: No known drug allergies. PHYSICAL EXAMINATION: VITAL SIGNS: Temperature 96.5, pulse 100, respiratory rate 24, blood pressure 180/62, oxygen saturation 100% on mechanical ventilation. T-max 100.4. GENERAL: Intubated. HEENT: NG tube present. Eyes closed. NECK: Supple. LUNGS: Decreased breath sounds. HEART: S1, S2 irregular. ABDOMEN: Soft. Bowel sounds present. Gastrostomy tube in place. EXTREMITIES: No edema, no cyanosis. DERMATOLOGIC: Warm, dry. No generalized rash, dry skin. NEUROLOGIC: On ventilator. LABORATORY DATA: WBC 32.5, hemoglobin 9.1, hematocrit 28.7, platelets 392, bands 53. Lactate 2.3. Sodium 140, potassium 5.2, chloride 106, bicarbonate 19, BUN 50, creatinine 1.8, glucose 123. Lactate this morning is 3.0, albumin 1.8. UA negative. INR 1.2. COVID PCR negative. Blood culture negative. UA negative. IMAGING: Chest x-ray shows NG tube present. New patchy interstitial airspace disease within the lower lobes, left greater than right, suspicious for pulmonary infiltrate. Retraction of the right hilum with elevation of right hemidiaphragm, appears chronic. MICRO: Blood culture negative so far. IMPRESSION: 1. Severe sepsis, source likely respiratory. 2. Acute hypoxic respiratory failure, status post intubation. 3. Pulmonary infiltrates, possible aspiration. 4. 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 5. Dysphagia, status post PEG tube placement. 6. History of paroxysmal atrial fibrillation. 7. History of lung cancer. 8. History of Clostridium difficile colitis 09/2019. 9. Prerenal azotemia. 10. Protein-calorie malnutrition. 11. Lactic acidosis from #1 12. Anemia. RECOMMENDATIONS: 1. Continue linezolid. 2. Discontinue vancomycin due to SERAFIN 3. Continue p.o. vancomycin. 4. Discontinue Zosyn and start meropenem. 5. Dose daptomycin. 6. Start micafungin. 7. Monitor am labs and cultures. 8. Check c diff pcr if diarrhea 9. Continue supportive care. Critically ill. Prognosis is very poor. Discussed with nursing staff. Thank you for allowing me to participate in this patient's care. If you have any questions, do not hesitate to contact me. GIFTY DHILLON MD DR: VANNA/chuck JOB#: [id number] / [id number] JHONNY
[2019-12-01] VITALS (48 sets, daily range): BP systolic 77–136; BP diastolic 42–60
[2019-12-01] MEDS: VASOPRESSIN 20 UNIT in IV DEXTROSE 5% 100ML 100 ML IV PRN ×3 (01:42→19:12)
[2019-12-01] MEDS: PANTOPRAZOLE SODIUM IV DRIP 80 MG in IV NORMAL SALINE 100ML 100 ML IV SCH ×2 (04:05→15:13)
[2019-12-01] MEDS: SODIUM BICARBONATE VIAL 150 MEQ in IV DEXTROSE 5% 1,000 ML IV SCH ×3 (05:34→21:02)
[2019-12-01] MEDS: MEROPENEM 500 MG in IV NORMAL SALINE 50ML 50 ML IV SCH ×2 (05:35→21:02)
[2019-12-01 07:14] LABS: ALBUMIN 1.6 g/dL (3.4-5.0); CALCIUM 7.3 mg/dL (8.5-10.1); CREATININE 2.3 mg/dL (0.7-1.3); GFR 32.7; PHOSPHORUS 5.7 mg/dL (2.6-4.7); POTASSIUM 5.2 mmol/L (3.5-5.1)
--- NOTE | 2019-12-01 07:55 | PDOC ---
Infectious Disease Note Subjective: Subjective Intubated, unresponsive On pressors Discussed with nursing staff Vital Signs: Vital Signs Vital Signs Date Time Temp Pulse Resp B/P (MAP) Pulse Ox O2 Delivery O2 Flow Rate FiO2 12/01/19 06:00 107 23 92/51 (65) 100 Ventilator 12/01/19 04:00 99.1 99.1 Physical Exam: PHYSICAL EXAM GENERAL: Intubated.unresponsive HEENT: NG tube present. Eyes closed. NECK: Supple. IJ present LUNGS: Decreased breath sounds. HEART: S1, S2 irregular. ABDOMEN: Soft. Bowel sounds present. Gastrostomy tube in place. Patel in place EXTREMITIES: No edema, no cyanosis. DERMATOLOGIC: Warm, dry. No generalized rash, dry skin. NEUROLOGIC: On ventilator. Unresponsive Medications: Inpatient Meds: Current Medications Medications (Trade) Dose Ordered Sig/Jaleesa Start Time Stop Time Status Last Admin Dose Admin Acetaminophen (Tylenol) 650 mg Q6HRS PRN 11/29/19 10:30 Albumin Human 500 ml @ 125 mls/hr 1X ONCE 11/30/19 07:00 11/30/19 10:59 DC 11/30/19 08:18 125 MLS/HR Allopurinol (Zyloprim) 100 mg DAILY 11/30/19 09:00 11/30/19 08:20 100 MG Amiodarone HCl (Cordarone) 200 mg DAILY 11/30/19 09:00 11/30/19 08:19 200 MG Aspirin (Aspirin Chewable) 81 mg DAILYWBKFT 11/30/19 08:30 11/30/19 08:46 81 MG Aspirin (Rosemary Aspirin) 81 mg DAILY 11/30/19 09:00 11/30/19 08:25 DC Atorvastatin Calcium (Lipitor) 40 mg QHS 11/29/19 21:00 11/30/19 21:10 40 MG Daptomycin 340 mg/ Sodium Chloride 50 ml @ 100 mls/hr ONCE ONCE 11/30/19 13:30 11/30/19 13:59 DC 11/30/19 14:11 100 MLS/HR Etomidate (Amidate) 20 mg 1X ONCE 11/29/19 07:25 11/29/19 08:30 DC 11/29/19 08:35 20 MG Famotidine (Pepcid) 20 mg DAILY 11/30/19 09:00 11/30/19 03:05 DC Fentanyl Citrate 30 ml @ 0 mls/hr CONT PRN 11/29/19 16:45 Heparin Sodium (Porcine) (Heparin Sodium) 5,000 unit BID 11/29/19 21:00 11/30/19 10:39 DC 11/30/19 08:21 5,000 UNIT Linezolid/Dextrose 300 ml @ 300 mls/hr Q12HR 11/30/19 11:00 11/30/19 21:10 300 MLS/HR Meropenem 500 mg/ Sodium Chloride 50 ml @ 100 mls/hr Q8HRS 11/30/19 14:00 12/01/19 05:35 100 MLS/HR Metoclopramide HCl (Reglan Vial) 10 mg 1X ONCE 11/30/19 07:30 11/30/19 07:40 DC 11/30/19 08:20 10 MG Metoprolol Tartrate (Lopressor) 50 mg BID 11/29/19 21:00 11/29/19 20:05 50 MG Micafungin Sodium 100 mg/Dextrose 100 ml @ 100 mls/hr Q24H 11/30/19 13:00 11/30/19 13:11 100 MLS/HR Midazolam HCl 100 ml @ 0 mls/hr CONT PRN 11/29/19 16:45 11/30/19 09:42 8 MLS/HR Midazolam HCl 100 mg/Sodium Chloride 80 ml @ 0 mls/hr 1X ONCE 11/29/19 12:00 11/29/19 12:01 DC 11/29/19 12:13 5 MLS/HR Norepinephrine Bitartrate 32 mg/ Dextrose 250 ml @ 3.047 mls/ hr CONT PRN 11/29/19 17:00 11/30/19 20:00 15.234 MLS/HR Norepinephrine Bitartrate 8 mg/ Dextrose 258 ml @ 12.578 mls/ hr CONT PRN 11/29/19 13:00 11/29/19 16:46 DC 11/29/19 13:50 12.578 MLS/HR Ondansetron HCl (Zofran) 4 mg PRN Q8HRS PRN 11/29/19 10:15 11/30/19 10:14 DC Pantoprazole Sodium (PROTONIX VIAL for IV PUSH) 80 mg 1X ONCE 11/30/19 07:30 11/30/19 07:31 DC 11/30/19 08:19 80 MG Pantoprazole Sodium 80 mg/ Sodium Chloride 100 ml @ 10 mls/hr Q10H 11/30/19 07:30 12/01/19 04:05 10 MLS/HR Piperacillin Sod/ Tazobactam Sod 2.25 gm/Sodium Chloride 50 ml @ 100 mls/hr Q6HRS 11/30/19 12:00 11/30/19 12:36 DC Piperacillin Sod/ Tazobactam Sod 3.375 gm/Sodium Chloride 50 ml @ 100 mls/hr Q8HRS 11/30/19 14:00 11/30/19 10:44 DC Propofol 50 ml @ 0.975 mls/ hr 1X ONCE 11/29/19 10:00 11/29/19 10:01 DC 11/29/19 09:50 9.8 MLS/HR Propofol (Diprivan) 200 mg TITRATE PRN 11/29/19 09:45 11/29/19 09:47 DC 11/29/19 09:45 200 MG Scopolamine (Transderm-Scop) 1 patch Q3DAYS 11/29/19 14:00 Sodium Bicarbonate 150 meq/Dextrose 1,150 ml @ 125 mls/hr Q9H12M 11/30/19 07:00 12/01/19 05:34 125 MLS/HR Sodium Chloride 500 ml @ 500 mls/hr 1X ONCE 11/30/19 03:30 11/30/19 04:29 DC 11/30/19 03:30 500 MLS/HR Succinylcholine Chloride (Anectine) 100 mg 1X ONCE 11/29/19 07:25 11/29/19 08:30 DC 11/29/19 08:31 100 MG Vancomycin HCl (Vanco Per Pharmacy) 1 each PRN DAILY PRN 11/29/19 10:15 11/30/19 10:42 DC 11/29/19 15:47 1 EACH Vancomycin HCl (Vancomycin Trough Level) 1 each 1X ONCE 12/01/19 10:30 12/01/19 10:31 Cancel Vancomycin HCl (Vancomycin Oral Solution) 125 mg BID 11/29/19 21:00 11/30/19 21:10 125 MG Vancomycin HCl 1.5 gm/Sodium Chloride 500 ml @ 250 mls/hr 1X ONCE 11/29/19 10:45 11/29/19 12:44 DC 11/29/19 11:23 250 MLS/HR Vancomycin HCl 1 gm/Sodium Chloride 250 ml @ 250 mls/hr Q24H 11/30/19 11:00 11/30/19 10:39 DC Vasopressin 20 unit/Dextrose 101 ml @ 12 mls/hr CONT PRN 11/29/19 15:15 12/01/19 01:42 12 MLS/HR Labs: Lab Laboratory Tests Test 11/30/19 08:50 12/01/19 06:45 O2 Saturation 87 % (92-99) Arterial Blood pH 7.15 (7.35-7.45) Arterial Blood pCO2 at Patient Temp 42 mmHg (35-46) Arterial Blood pO2 at Patient Temp 59 mmHg (65-108) Arterial Blood HCO3 14 mmol/L (21-28) Arterial Blood Base Excess -14 mmol/L (-3-3) FiO2 60 Sodium Level 133 mmol/L (136-145) Potassium Level 5.2 mmol/L (3.5-5.1) Chloride Level 96 mmol/L (98-107) Carbon Dioxide Level 22 mmol/L (21-32) Anion Gap 15 (6-14) Blood Urea Nitrogen 61 mg/dL (8-26) Creatinine 2.3 mg/dL (0.7-1.3) Estimated GFR (Cockcroft-Gault) 32.7 Glucose Level 149 mg/dL (70-99) Calcium Level 7.3 mg/dL (8.5-10.1) Phosphorus Level 5.7 mg/dL (2.6-4.7) Creatine Kinase 294 U/L (39-308) Albumin 1.6 g/dL (3.4-5.0) Objective: Assessment: 1. Severe sepsis, source likely respiratory. 2. Acute hypoxic respiratory failure, status post intubation. 3. Pulmonary infiltrates, possible aspiration. 4. 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 5. Dysphagia, with PEG tube in place 6. History of paroxysmal atrial fibrillation. 7. History of lung cancer. 8. History of Clostridium difficile colitis 09/2019. 9. Prerenal azotemia. 10. Severe Protein-calorie malnutrition. 11. Lactic acidosis. 12. Anemia. 13. [place] resident Plan: Plan of Care Continue linezolid, meropenem, micafungin Continue p.o. vancomycin Follow up labs and cultures. Continue supportive care. Critically ill. Prognosis is very poor. Consider palliative care Discussed with nursing staff. GIFTY DHILLON MD Dec 01, 2019 07:55
[2019-12-01 07:56] LABS: BASO % 0 % (0-3); EOS % 0 % (0-3); HEMATOCRIT 22.1 % (39.0-53.0); HEMOGLOBIN 7.2 g/dL (13.0-17.5); LYMPH # 0.5 x10^3/uL (1.0-4.8); LYMPH % 2 % (24-48); MEAN CORPUSCULAR HEMOGLOBIN 31 pg (25-35); MEAN CORPUSCULAR HGB CONC 33 g/dL (31-37); MEAN CORPUSCULAR VOLUME 95 fL (79-100); MONO % 3 % (0-9); NEUT # 32.4 x10^3/uL (1.8-7.7); NEUT % 96 % (31-73); PLATELET COUNT 225 x10^3/uL (140-400); RED BLOOD COUNT 2.34 x10^6/uL (4.30-5.70); RED CELL DISTRIBUTION WIDTH 19.1 % (11.5-14.5); WHITE BLOOD COUNT 33.9 x10^3/uL (4.0-11.0)
[2019-12-01] MEDS: METOPROLOL TART IMMED RELEASE 50 MG TABLET. PO SCH ×2 (08:37→21:00)
--- NOTE | 2019-12-01 08:56 | PDOC ---
DATE OF SERVICE DATE: 12/01/19 TIME: 08:55 SUBJECTIVE ROS Intubated, Unresponsive, Off sedation since yesterday OBJECTIVE Vital Signs Vital Signs Date Time Temp Pulse Resp B/P (MAP) Pulse Ox O2 Delivery O2 Flow Rate FiO2 12/01/19 08:45 100 Ventilator 12/01/19 06:00 107 23 92/51 (65) 12/01/19 04:00 99.1 99.1 I & 0 Intake and Output 12/01/19 07:00 Intake Total 4008 ml Output Total 537 ml Balance 3471 ml Intake IV Total 3345 ml Tube Feeding 663 ml Output Urine Total 287 ml Gastric Drainage Total 250 ml PHYSICAL EXAM Physical Exam GENERAL: Intubated.unresponsive HEENT: NG tube present. NECK: Supple. IJ present LUNGS: Decreased breath sounds. HEART: S1, S2 irregular. ABDOMEN: Soft. Gastrostomy tube in place. Patel in place EXTREMITIES: No edema, no cyanosis. DERMATOLOGIC: No generalized rash, NEUROLOGIC: On ventilator. Unresponsive DIAGNOSIS/ASSESSMENT Assessment & Plan SERAFIN- ATN, Oliguric , severe sepsis/ Hypotension Have been on IVF , on pressors UA unremarkable, CT scan unremarkable Kidneys Critically ill,poor prognosis , CRRT if aggressive care continued in opinion of other consultants Pending family's decision on goals of care Anemia- - Acute HyperKalemia -Mild Acidosis-Resolved Severe Sepsis - 2/2 Pulmonary etiology Acute hypoxic and hypercarbic respiratory failure, on the ventilator- Multifocal reticulonodular densities in the lungs bilaterally with more confluent consolidation in the left lower lobe consistent with lobar pneumonia Cerebrovascular accident ,right-sided hemiparesis, global aphasia, encephalopathy Oropharyngeal dysphagia, maintain on PEG tube feedings. Paroxysmal atrial fibrillation Renal Cysts- Bilateral renal cortical cysts, requiring no additional imaging follow-up are noted, largest measuring 7.4 cm of the superior pole left kidney. Mansoor RN COMMENT/RELEVANT DATA Meds Current Medications Medications (Trade) Dose Ordered Sig/Jaleesa Start Time Stop Time Status Last Admin Dose Admin Acetaminophen (Tylenol) 650 mg Q6HRS PRN 11/29/19 10:30 Albumin Human 500 ml @ 125 mls/hr 1X ONCE 11/30/19 07:00 11/30/19 10:59 DC 11/30/19 08:18 125 MLS/HR Allopurinol (Zyloprim) 100 mg DAILY 11/30/19 09:00 11/30/19 08:20 100 MG Amiodarone HCl (Cordarone) 200 mg DAILY 11/30/19 09:00 11/30/19 08:19 200 MG Aspirin (Aspirin Chewable) 81 mg DAILYWBKFT 11/30/19 08:30 11/30/19 08:46 81 MG Aspirin (Rosemary Aspirin) 81 mg DAILY 11/30/19 09:00 11/30/19 08:25 DC Atorvastatin Calcium (Lipitor) 40 mg QHS 11/29/19 21:00 11/30/19 21:10 40 MG Daptomycin 340 mg/ Sodium Chloride 50 ml @ 100 mls/hr ONCE ONCE 11/30/19 13:30 11/30/19 13:59 DC 11/30/19 14:11 100 MLS/HR Etomidate (Amidate) 20 mg 1X ONCE 11/29/19 07:25 11/29/19 08:30 DC 11/29/19 08:35 20 MG Famotidine (Pepcid) 20 mg DAILY 11/30/19 09:00 11/30/19 03:05 DC Fentanyl Citrate 30 ml @ 0 mls/hr CONT PRN 11/29/19 16:45 Heparin Sodium (Porcine) (Heparin Sodium) 5,000 unit BID 11/29/19 21:00 11/30/19 10:39 DC 11/30/19 08:21 5,000 UNIT Linezolid/Dextrose 300 ml @ 300 mls/hr Q12HR 11/30/19 11:00 11/30/19 21:10 300 MLS/HR Meropenem 500 mg/ Sodium Chloride 50 ml @ 100 mls/hr Q8HRS 11/30/19 14:00 12/01/19 05:35 100 MLS/HR Metoclopramide HCl (Reglan Vial) 10 mg 1X ONCE 11/30/19 07:30 11/30/19 07:40 DC 11/30/19 08:20 10 MG Metoprolol Tartrate (Lopressor) 50 mg BID 11/29/19 21:00 11/29/19 20:05 50 MG Micafungin Sodium 100 mg/Dextrose 100 ml @ 100 mls/hr Q24H 11/30/19 13:00 11/30/19 13:11 100 MLS/HR Midazolam HCl 100 ml @ 0 mls/hr CONT PRN 11/29/19 16:45 11/30/19 09:42 8 MLS/HR Midazolam HCl 100 mg/Sodium Chloride 80 ml @ 0 mls/hr 1X ONCE 11/29/19 12:00 11/29/19 12:01 DC 11/29/19 12:13 5 MLS/HR Norepinephrine Bitartrate 32 mg/ Dextrose 250 ml @ 3.047 mls/ hr CONT PRN 11/29/19 17:00 11/30/19 20:00 15.234 MLS/HR Norepinephrine Bitartrate 8 mg/ Dextrose 258 ml @ 12.578 mls/ hr CONT PRN 11/29/19 13:00 11/29/19 16:46 DC 11/29/19 13:50 12.578 MLS/HR Ondansetron HCl (Zofran) 4 mg PRN Q8HRS PRN 11/29/19 10:15 11/30/19 10:14 DC Pantoprazole Sodium (PROTONIX VIAL for IV PUSH) 80 mg 1X ONCE 11/30/19 07:30 11/30/19 07:31 DC 11/30/19 08:19 80 MG Pantoprazole Sodium 80 mg/ Sodium Chloride 100 ml @ 10 mls/hr Q10H 11/30/19 07:30 12/01/19 04:05 10 MLS/HR Piperacillin Sod/ Tazobactam Sod 2.25 gm/Sodium Chloride 50 ml @ 100 mls/hr Q6HRS 11/30/19 12:00 11/30/19 12:36 DC Piperacillin Sod/ Tazobactam Sod 3.375 gm/Sodium Chloride 50 ml @ 100 mls/hr Q8HRS 11/30/19 14:00 11/30/19 10:44 DC Propofol 50 ml @ 0.975 mls/ hr 1X ONCE 11/29/19 10:00 11/29/19 10:01 DC 11/29/19 09:50 9.8 MLS/HR Propofol (Diprivan) 200 mg TITRATE PRN 11/29/19 09:45 11/29/19 09:47 DC 11/29/19 09:45 200 MG Scopolamine (Transderm-Scop) 1 patch Q3DAYS 11/29/19 14:00 Sodium Bicarbonate 150 meq/Dextrose 1,150 ml @ 125 mls/hr Q9H12M 11/30/19 07:00 12/01/19 05:34 125 MLS/HR Sodium Chloride 500 ml @ 500 mls/hr 1X ONCE 11/30/19 03:30 11/30/19 04:29 DC 11/30/19 03:30 500 MLS/HR Succinylcholine Chloride (Anectine) 100 mg 1X ONCE 11/29/19 07:25 11/29/19 08:30 DC 11/29/19 08:31 100 MG Vancomycin HCl (Vanco Per Pharmacy) 1 each PRN DAILY PRN 11/29/19 10:15 11/30/19 10:42 DC 11/29/19 15:47 1 EACH Vancomycin HCl (Vancomycin Trough Level) 1 each 1X ONCE 12/01/19 10:30 12/01/19 10:31 Cancel Vancomycin HCl (Vancomycin Oral Solution) 125 mg BID 11/29/19 21:00 11/30/19 21:10 125 MG Vancomycin HCl 1.5 gm/Sodium Chloride 500 ml @ 250 mls/hr 1X ONCE 11/29/19 10:45 11/29/19 12:44 DC 11/29/19 11:23 250 MLS/HR Vancomycin HCl 1 gm/Sodium Chloride 250 ml @ 250 mls/hr Q24H 11/30/19 11:00 11/30/19 10:39 DC Vasopressin 20 unit/Dextrose 101 ml @ 12 mls/hr CONT PRN 11/29/19 15:15 12/01/19 01:42 12 MLS/HR Lab Laboratory Tests Test 12/01/19 06:45 White Blood Count 33.9 x10^3/uL (4.0-11.0) Red Blood Count 2.34 x10^6/uL (4.30-5.70) Hemoglobin 7.2 g/dL (13.0-17.5) Hematocrit 22.1 % (39.0-53.0) Mean Corpuscular Volume 95 fL (79-100) Mean Corpuscular Hemoglobin 31 pg (25-35) Mean Corpuscular Hemoglobin Concent 33 g/dL (31-37) Red Cell Distribution Width 19.1 % (11.5-14.5) Platelet Count 225 x10^3/uL (140-400) Neutrophils (%) (Auto) 96 % (31-73) Lymphocytes (%) (Auto) 2 % (24-48) Monocytes (%) (Auto) 3 % (0-9) Eosinophils (%) (Auto) 0 % (0-3) Basophils (%) (Auto) 0 % (0-3) Neutrophils # (Auto) 32.4 x10^3/uL (1.8-7.7) Lymphocytes # (Auto) 0.5 x10^3/uL (1.0-4.8) Monocytes # (Auto) 1.0 x10^3/uL (0.0-1.1) Eosinophils # (Auto) 0.0 x10^3/uL (0.0-0.7) Basophils # (Auto) 0.0 x10^3/uL (0.0-0.2) Sodium Level 133 mmol/L (136-145) Potassium Level 5.2 mmol/L (3.5-5.1) Chloride Level 96 mmol/L (98-107) Carbon Dioxide Level 22 mmol/L (21-32) Anion Gap 15 (6-14) Blood Urea Nitrogen 61 mg/dL (8-26) Creatinine 2.3 mg/dL (0.7-1.3) Estimated GFR (Cockcroft-Gault) 32.7 Glucose Level 149 mg/dL (70-99) Calcium Level 7.3 mg/dL (8.5-10.1) Phosphorus Level 5.7 mg/dL (2.6-4.7) Creatine Kinase 294 U/L (39-308) Albumin 1.6 g/dL (3.4-5.0) Results All relevant outside records, renal labs, imaging studies, telemetry/EKG's were reviewed. Justicifation of Admission Dx: Justifications for Admission: Justification of Admission Dx: Yes Sepsis: Altered Mental Status SEB HERNANDEZ MD Dec 01, 2019 08:56
[2019-12-01 09:04] LABS: BASE EXCESS ABG -6 mmol/L (-3-3); HCO3 ABG 19 mmol/L (21-28); PCO2 ABG 31 mmHg (35-46); PO2 ABG 83 mmHg (65-108); SAT O2 ABG 96 % (92-99)
[2019-12-01 09:06] LABS: FIO2 ABG 60
[2019-12-01] MEDS: ASPIRIN CHEWABLE 81 MG TABLET. PO SCH (09:06)
[2019-12-01] MEDS: VANCOMYCIN 125 MG/2.5 ML ORAL SOLUTION. PEG SCH ×2 (09:07→21:01)
[2019-12-01] MEDS: ALLOPURINOL 100 MG TABLET. PEG SCH (09:10)
[2019-12-01] MEDS: AMIODARONE HCL 200 MG TABLET. PEG SCH (09:17)
--- NOTE | 2019-12-01 10:28 | PDOC ---
PULMONARY PROGRESS NOTES DATE: 12/01/19 TIME: 10:20 Subjective remains intubated/sedated on high doses of two pressors not making urine SERAFIN Vitals Vital Signs Date Time Temp Pulse Resp B/P (MAP) Pulse Ox O2 Delivery O2 Flow Rate FiO2 12/01/19 09:17 110 93/53 12/01/19 08:45 100 Ventilator 12/01/19 06:00 23 12/01/19 04:00 99.1 99.1 Lungs: Clear Cardiovascular: S1 Abdomen: Soft, Non-tender Extremities: Other (1+edema) Labs Laboratory Tests Test 11/29/19 11:00 11/29/19 11:49 11/30/19 03:20 11/30/19 08:50 Lactic Acid Level 3.0 mmol/L (0.4-2.0) O2 Saturation 90 % (92-99) 87 % (92-99) Arterial Blood pH 7.37 (7.35-7.45) 7.15 (7.35-7.45) Arterial Blood pCO2 at Patient Temp 36 mmHg (35-46) 42 mmHg (35-46) Arterial Blood pO2 at Patient Temp 62 mmHg (65-108) 59 mmHg (65-108) Arterial Blood HCO3 20 mmol/L (21-28) 14 mmol/L (21-28) Arterial Blood Base Excess -4 mmol/L (-3-3) -14 mmol/L (-3-3) FiO2 60 60 White Blood Count 32.5 x10^3/uL (4.0-11.0) Red Blood Count 2.92 x10^6/uL (4.30-5.70) Hemoglobin 9.1 g/dL (13.0-17.5) Hematocrit 28.7 % (39.0-53.0) Mean Corpuscular Volume 98 fL (79-100) Mean Corpuscular Hemoglobin 31 pg (25-35) Mean Corpuscular Hemoglobin Concent 32 g/dL (31-37) Red Cell Distribution Width 18.7 % (11.5-14.5) Platelet Count 392 x10^3/uL (140-400) Neutrophils (%) (Auto) 95 % (31-73) Lymphocytes (%) (Auto) 2 % (24-48) Monocytes (%) (Auto) 3 % (0-9) Eosinophils (%) (Auto) 0 % (0-3) Basophils (%) (Auto) 0 % (0-3) Neutrophils # (Auto) 30.8 x10^3/uL (1.8-7.7) Lymphocytes # (Auto) 0.8 x10^3/uL (1.0-4.8) Monocytes # (Auto) 0.8 x10^3/uL (0.0-1.1) Eosinophils # (Auto) 0.0 x10^3/uL (0.0-0.7) Basophils # (Auto) 0.1 x10^3/uL (0.0-0.2) Segmented Neutrophils % 39 % (35-66) Band Neutrophils % 53 % (0-9) Lymphocytes % 5 % (24-48) Monocytes % 2 % (0-10) Metamyelocytes % 1 % (0-0) Toxic Vacuolation Slight Platelet Estimate Adequate (ADEQUATE) Polychromasia Slight Sodium Level 140 mmol/L (136-145) Potassium Level 5.2 mmol/L (3.5-5.1) Chloride Level 106 mmol/L (98-107) Carbon Dioxide Level 19 mmol/L (21-32) Anion Gap 15 (6-14) Blood Urea Nitrogen 58 mg/dL (8-26) Creatinine 1.8 mg/dL (0.7-1.3) Estimated GFR (Cockcroft-Gault) 43.4 Glucose Level 123 mg/dL (70-99) Calcium Level 8.4 mg/dL (8.5-10.1) Test 12/01/19 06:45 12/01/19 08:55 White Blood Count 33.9 x10^3/uL (4.0-11.0) Red Blood Count 2.34 x10^6/uL (4.30-5.70) Hemoglobin 7.2 g/dL (13.0-17.5) Hematocrit 22.1 % (39.0-53.0) Mean Corpuscular Volume 95 fL (79-100) Mean Corpuscular Hemoglobin 31 pg (25-35) Mean Corpuscular Hemoglobin Concent 33 g/dL (31-37) Red Cell Distribution Width 19.1 % (11.5-14.5) Platelet Count 225 x10^3/uL (140-400) Neutrophils (%) (Auto) 96 % (31-73) Lymphocytes (%) (Auto) 2 % (24-48) Monocytes (%) (Auto) 3 % (0-9) Eosinophils (%) (Auto) 0 % (0-3) Basophils (%) (Auto) 0 % (0-3) Neutrophils # (Auto) 32.4 x10^3/uL (1.8-7.7) Lymphocytes # (Auto) 0.5 x10^3/uL (1.0-4.8) Monocytes # (Auto) 1.0 x10^3/uL (0.0-1.1) Eosinophils # (Auto) 0.0 x10^3/uL (0.0-0.7) Basophils # (Auto) 0.0 x10^3/uL (0.0-0.2) Sodium Level 133 mmol/L (136-145) Potassium Level 5.2 mmol/L (3.5-5.1) Chloride Level 96 mmol/L (98-107) Carbon Dioxide Level 22 mmol/L (21-32) Anion Gap 15 (6-14) Blood Urea Nitrogen 61 mg/dL (8-26) Creatinine 2.3 mg/dL (0.7-1.3) Estimated GFR (Cockcroft-Gault) 32.7 Glucose Level 149 mg/dL (70-99) Calcium Level 7.3 mg/dL (8.5-10.1) Phosphorus Level 5.7 mg/dL (2.6-4.7) Creatine Kinase 294 U/L (39-308) Albumin 1.6 g/dL (3.4-5.0) O2 Saturation 96 % (92-99) Arterial Blood pH 7.40 (7.35-7.45) Arterial Blood pCO2 at Patient Temp 31 mmHg (35-46) Arterial Blood pO2 at Patient Temp 83 mmHg (65-108) Arterial Blood HCO3 19 mmol/L (21-28) Arterial Blood Base Excess -6 mmol/L (-3-3) FiO2 60 Laboratory Tests Test 12/01/19 06:45 12/01/19 08:55 White Blood Count 33.9 x10^3/uL (4.0-11.0) Red Blood Count 2.34 x10^6/uL (4.30-5.70) Hemoglobin 7.2 g/dL (13.0-17.5) Hematocrit 22.1 % (39.0-53.0) Mean Corpuscular Volume 95 fL (79-100) Mean Corpuscular Hemoglobin 31 pg (25-35) Mean Corpuscular Hemoglobin Concent 33 g/dL (31-37) Red Cell Distribution Width 19.1 % (11.5-14.5) Platelet Count 225 x10^3/uL (140-400) Neutrophils (%) (Auto) 96 % (31-73) Lymphocytes (%) (Auto) 2 % (24-48) Monocytes (%) (Auto) 3 % (0-9) Eosinophils (%) (Auto) 0 % (0-3) Basophils (%) (Auto) 0 % (0-3) Neutrophils # (Auto) 32.4 x10^3/uL (1.8-7.7) Lymphocytes # (Auto) 0.5 x10^3/uL (1.0-4.8) Monocytes # (Auto) 1.0 x10^3/uL (0.0-1.1) Eosinophils # (Auto) 0.0 x10^3/uL (0.0-0.7) Basophils # (Auto) 0.0 x10^3/uL (0.0-0.2) Sodium Level 133 mmol/L (136-145) Potassium Level 5.2 mmol/L (3.5-5.1) Chloride Level 96 mmol/L (98-107) Carbon Dioxide Level 22 mmol/L (21-32) Anion Gap 15 (6-14) Blood Urea Nitrogen 61 mg/dL (8-26) Creatinine 2.3 mg/dL (0.7-1.3) Estimated GFR (Cockcroft-Gault) 32.7 Glucose Level 149 mg/dL (70-99) Calcium Level 7.3 mg/dL (8.5-10.1) Phosphorus Level 5.7 mg/dL (2.6-4.7) Creatine Kinase 294 U/L (39-308) Albumin 1.6 g/dL (3.4-5.0) O2 Saturation 96 % (92-99) Arterial Blood pH 7.40 (7.35-7.45) Arterial Blood pCO2 at Patient Temp 31 mmHg (35-46) Arterial Blood pO2 at Patient Temp 83 mmHg (65-108) Arterial Blood HCO3 19 mmol/L (21-28) Arterial Blood Base Excess -6 mmol/L (-3-3) FiO2 60 Medications Active Scripts Medications Dose Route/Sig Max Daily Dose Days Date Category Transderm-Scop (Scopolamine) 1 Each Patch.td72 1 Patch TP Q3DAYS 11/29/19 Reported Probiotic (Lactobacillus Combo No.11) 1 Each Cap.sprink 1 Each PO DAILY 11/29/19 Reported Metoprolol Tartrate 50 Mg Tablet 1 Tab PEG BID 11/29/19 Reported Lipitor (Atorvastatin Calcium) 40 Mg Tablet 1 Tab PEG QHS 11/29/19 Reported Calcium 500 + Vit D 200 Caplet (Calcium Carbonate/Vitamin D3) 1 Each Tablet 1 Tab PEG DAILY 30 11/29/19 Reported Aspirin 81 Mg Tab.chew 1 Tab PEG DAILY 11/29/19 Reported Amiodarone Hcl 200 Mg Tablet 1 Tab PEG DAILY 11/29/19 Reported Allopurinol 100 Mg Tablet 1 Tab PEG DAILY 11/29/19 Reported Acetaminophen Oral Liquid (Acetaminophen) 650 Mg/20.3 Ml Solution 650 Mg PO PRN Q4HRS PRN 11/29/[address] chest IMPRESSION: 1. Multifocal reticulonodular densities in the lungs bilaterally with more confluent consolidation in the left lower lobe consistent with lobar pneumonia. No evidence of necrotizing pneumonia or lung abscess. 2. No definite acute findings in the abdomen or pelvis with equivocal wall thickening in the ascending colon that is recommended for elective clinical and imaging follow-up when clinically feasible. Electronically signed by: Andrea Farias MD (11/30/2019 4:30 PM) [id number] Impression . 1. Acute hypoxic and hypercapnic respiratory failure, secondary to combination of pneumonia and septic shock 2. Marked leukocytosis related to pneumonia. Need to rule out all other sources of infection as well. 3. 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 Status post percutaneous endoscopic gastrostomy tube placement. 4. Abnormal chest x-ray consistent with pneumonia. 5. History of paroxysmal atrial fibrillation. 6. Severe protein-calorie malnutrition. 7. worsening SERAFIN. ., now no sig urine output 8. Mildly increased troponin level. 9. shock/septic 10. ABNORMAL CT CHEST C/W DIFFUSE PNEUMONIA/LLL CONSOLIDATION Plan . 1. Discussed with the respiratory therapist and RN 2. We will continue with present assist control mode and make changes based on the ABGs. 3. Broad-spectrum antibiotics. 4. Continue to monitor blood pressure closely./on 2 pressors 5. Sedation. 6. d/w daughter in detail. Multiple family members to arrive later today from all over [place] and make decision about advance directives 7. DVT prophylaxis with subcutaneous heparin. 8. Stress ulcer prophylaxis. 9. watch Hb 10. We will follow along with you. Discussed with RN and RT CRITICAL CARE TIME: 30 minutes. IWONA SMILEY MD Dec 01, 2019 10:28
--- NOTE | 2019-12-01 10:51 | NUR ---
SS following up with discharge planning. SS reviewed pt chart and discussed with pt RN. Pt on the vent. Full Code. Pt on IV Meropenem, IV Micafungin, and IV Zyvox. COVID19 negative. Per RN, pt not responsive. Pt needing dialysis but cannot tolerate and would require [facility]. Pt's family coming today to discuss goals of care. SS will continue to follow for discharge planning.
--- NOTE | 2019-12-01 10:51 | RAD ---
CHEST AP ONLY INDICATION: pneumonia. respiratory failure . COMPARISON STUDY: 11/30/2019. FINDINGS: Life Support Devices: Stable endotracheal tube, enteric tube, right subclavian central venous catheter. Lungs: Asymmetric elevation of the right hemidiaphragm. Stable left mid and lower lung opacities. Stable pulmonary vasculature. Pleura: No pleural effusion or pneumothorax. Heart and Mediastinum: Stable cardiomediastinal silhouette and great vessels. IMPRESSION: 1. Stable left mid and lower lung opacities. 2. Stable life support devices. Electronically signed by: Jony Solomon MD (12/01/2019 10:48 AM) [id number]
--- NOTE | 2019-12-01 11:17 | PDOC ---
Date of Service: DATE: 12/01/19 TIME: 11:12 Objective: Objective: D/w nurse - family flying in to see him, needs dialysis, pressors increased, really foul-smelling brown stool w/ red flakes, tolerating tube feeds through OG (attachment for PEG unavailable) Vital Signs: Vital Signs Date Time Temp Pulse Resp B/P (MAP) Pulse Ox O2 Delivery O2 Flow Rate FiO2 12/01/19 11:09 100 Ventilator 12/01/19 09:17 110 93/53 12/01/19 08:00 23 12/01/19 04:00 99.1 99.1 Labs: Laboratory Tests Test 12/01/19 06:45 12/01/19 08:55 White Blood Count 33.9 x10^3/uL Red Blood Count 2.34 x10^6/uL Hemoglobin 7.2 g/dL Hematocrit 22.1 % Mean Corpuscular Volume 95 fL Mean Corpuscular Hemoglobin 31 pg Mean Corpuscular Hemoglobin Concent 33 g/dL Red Cell Distribution Width 19.1 % Platelet Count 225 x10^3/uL Neutrophils (%) (Auto) 96 % Lymphocytes (%) (Auto) 2 % Monocytes (%) (Auto) 3 % Eosinophils (%) (Auto) 0 % Basophils (%) (Auto) 0 % Neutrophils # (Auto) 32.4 x10^3/uL Lymphocytes # (Auto) 0.5 x10^3/uL Monocytes # (Auto) 1.0 x10^3/uL Eosinophils # (Auto) 0.0 x10^3/uL Basophils # (Auto) 0.0 x10^3/uL Sodium Level 133 mmol/L Potassium Level 5.2 mmol/L Chloride Level 96 mmol/L Carbon Dioxide Level 22 mmol/L Anion Gap 15 Blood Urea Nitrogen 61 mg/dL Creatinine 2.3 mg/dL Estimated GFR (Cockcroft-Gault) 32.7 Glucose Level 149 mg/dL Calcium Level 7.3 mg/dL Phosphorus Level 5.7 mg/dL Creatine Kinase 294 U/L Albumin 1.6 g/dL O2 Saturation 96 % Arterial Blood pH 7.40 Arterial Blood pCO2 at Patient Temp 31 mmHg Arterial Blood pO2 at Patient Temp 83 mmHg Arterial Blood HCO3 19 mmol/L Arterial Blood Base Excess -6 mmol/L FiO2 60 BLOOD CULTURE Preliminary NO GROWTH AFTER 2 DAYS Imaging: C/A/P CT IMPRESSION: 1. Multifocal reticulonodular densities in the lungs bilaterally with more confluent consolidation in the left lower lobe consistent with lobar pneumonia. No evidence of necrotizing pneumonia or lung abscess. 2. No definite acute findings in the abdomen or pelvis with equivocal wall thickening in the ascending colon that is recommended for elective clinical and imaging follow-up when clinically feasible. PE: GEN: chronically ill LUNGS: vent HEART: tachycardic ABD: pretty quiet, PEG in place NEURO/PSYCH: unresponsive A/P: Resp failure, SERAFIN Anemia - worse today Abnormal CT - pneumonia, wall thickening in ascending colon H/o CVA and dysphagia w/ PEG - currently w/ OG feeds -- Await family decisions. Continue PPI. Other per Dr. Perry. Justicifation of Admission Dx: Justifications for Admission: Justification of Admission Dx: Yes Sepsis: Altered Mental Status NANY LOPEZ Dec 01, 2019 11:17
--- NOTE | 2019-12-01 12:36 | PDOC ---
PROGRESS NOTES Date of Service DATE: 12/01/19 TIME: 12:30 Subjective Subjective discussed with nurse. he is on 2 pressors and is intubated and not making urine. lab reviewed. hgb 7.2. ct chest/abd/pelvis shows LLL pneumonia with consolidation. Objective Objective Vital Signs Date Time Temp Pulse Resp B/P (MAP) Pulse Ox O2 Delivery O2 Flow Rate FiO2 12/01/19 11:09 100 Ventilator 12/01/19 11:00 106 24 98/53 (68) 12/01/19 08:15 98.9 98.9 11/30/19 04:00 25.0 Intake and Output 12/01/19 07:00 Intake Total 4008 ml Output Total 537 ml Balance 3471 ml Intake IV Total 3345 ml Tube Feeding 663 ml Output Urine Total 287 ml Gastric Drainage Total 250 ml Physical Exam Abdomen: Soft, Other (bowel souonds with PEG) Heart: Regular rate, Normal S1, Normal S2 Extremities: No edema General: Other (unresponsive) HEENT: Atraumatic, Other (intubated) Lungs: Other (decreased breath sounds anteriorly) Neuro: Other (unresponsive) Psych/Mental Status: Other (unresponsive) Skin: No rashes Assessment Assessment Problems. LLL pneumonia. severe sepsis with shock and multi organ failure on pressors acute kidney failure. no urine output 2. Acute hypoxic and hypercarbic respiratory failure, on the ventilator. 3. Leukocytosis.worse 4. 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 5. anemia. hgb lower 6. severe protein calorie malnutrition 7. Hyperlipidemia. 8. Paroxysmal atrial fibrillation, currently in sinus rhythm. severe protein calorie malnutrition Medical Problems: (1) Pneumonia Status: Acute (2) Respiratory failure, acute Status: Acute (3) Severe sepsis Status: Acute Plan Plan of Care await family decision toeday. several family members from out of town to arrive today continue ventilator support and pressors and iv protonix drip continue tube feeding decrease bicarbonate drip continue iv antibiotics. zyvox and meropenem and micafungin prognosis poor Comment Review of Relevant I have reviewed the following items shadi (where applicable) has been applied. Labs Laboratory Tests Test 11/30/19 03:20 11/30/19 08:50 12/01/19 06:45 12/01/19 08:55 White Blood Count 32.5 x10^3/uL (4.0-11.0) 33.9 x10^3/uL (4.0-11.0) Red Blood Count 2.92 x10^6/uL (4.30-5.70) 2.34 x10^6/uL (4.30-5.70) Hemoglobin 9.1 g/dL (13.0-17.5) 7.2 g/dL (13.0-17.5) Hematocrit 28.7 % (39.0-53.0) 22.1 % (39.0-53.0) Mean Corpuscular Volume 98 fL (79-100) 95 fL (79-100) Mean Corpuscular Hemoglobin 31 pg (25-35) 31 pg (25-35) Mean Corpuscular Hemoglobin Concent 32 g/dL (31-37) 33 g/dL (31-37) Red Cell Distribution Width 18.7 % (11.5-14.5) 19.1 % (11.5-14.5) Platelet Count 392 x10^3/uL (140-400) 225 x10^3/uL (140-400) Neutrophils (%) (Auto) 95 % (31-73) 96 % (31-73) Lymphocytes (%) (Auto) 2 % (24-48) 2 % (24-48) Monocytes (%) (Auto) 3 % (0-9) 3 % (0-9) Eosinophils (%) (Auto) 0 % (0-3) 0 % (0-3) Basophils (%) (Auto) 0 % (0-3) 0 % (0-3) Neutrophils # (Auto) 30.8 x10^3/uL (1.8-7.7) 32.4 x10^3/uL (1.8-7.7) Lymphocytes # (Auto) 0.8 x10^3/uL (1.0-4.8) 0.5 x10^3/uL (1.0-4.8) Monocytes # (Auto) 0.8 x10^3/uL (0.0-1.1) 1.0 x10^3/uL (0.0-1.1) Eosinophils # (Auto) 0.0 x10^3/uL (0.0-0.7) 0.0 x10^3/uL (0.0-0.7) Basophils # (Auto) 0.1 x10^3/uL (0.0-0.2) 0.0 x10^3/uL (0.0-0.2) Segmented Neutrophils % 39 % (35-66) Band Neutrophils % 53 % (0-9) Lymphocytes % 5 % (24-48) Monocytes % 2 % (0-10) Metamyelocytes % 1 % (0-0) Toxic Vacuolation Slight Platelet Estimate Adequate (ADEQUATE) Polychromasia Slight Sodium Level 140 mmol/L (136-145) 133 mmol/L (136-145) Potassium Level 5.2 mmol/L (3.5-5.1) 5.2 mmol/L (3.5-5.1) Chloride Level 106 mmol/L (98-107) 96 mmol/L (98-107) Carbon Dioxide Level 19 mmol/L (21-32) 22 mmol/L (21-32) Anion Gap 15 (6-14) 15 (6-14) Blood Urea Nitrogen 58 mg/dL (8-26) 61 mg/dL (8-26) Creatinine 1.8 mg/dL (0.7-1.3) 2.3 mg/dL (0.7-1.3) Estimated GFR (Cockcroft-Gault) 43.4 32.7 Glucose Level 123 mg/dL (70-99) 149 mg/dL (70-99) Calcium Level 8.4 mg/dL (8.5-10.1) 7.3 mg/dL (8.5-10.1) O2 Saturation 87 % (92-99) 96 % (92-99) Arterial Blood pH 7.15 (7.35-7.45) 7.40 (7.35-7.45) Arterial Blood pCO2 at Patient Temp 42 mmHg (35-46) 31 mmHg (35-46) Arterial Blood pO2 at Patient Temp 59 mmHg (65-108) 83 mmHg (65-108) Arterial Blood HCO3 14 mmol/L (21-28) 19 mmol/L (21-28) Arterial Blood Base Excess -14 mmol/L (-3-3) -6 mmol/L (-3-3) FiO2 60 60 Phosphorus Level 5.7 mg/dL (2.6-4.7) Creatine Kinase 294 U/L (39-308) Albumin 1.6 g/dL (3.4-5.0) Laboratory Tests Test 12/01/19 06:45 12/01/19 08:55 White Blood Count 33.9 x10^3/uL (4.0-11.0) Red Blood Count 2.34 x10^6/uL (4.30-5.70) Hemoglobin 7.2 g/dL (13.0-17.5) Hematocrit 22.1 % (39.0-53.0) Mean Corpuscular Volume 95 fL (79-100) Mean Corpuscular Hemoglobin 31 pg (25-35) Mean Corpuscular Hemoglobin Concent 33 g/dL (31-37) Red Cell Distribution Width 19.1 % (11.5-14.5) Platelet Count 225 x10^3/uL (140-400) Neutrophils (%) (Auto) 96 % (31-73) Lymphocytes (%) (Auto) 2 % (24-48) Monocytes (%) (Auto) 3 % (0-9) Eosinophils (%) (Auto) 0 % (0-3) Basophils (%) (Auto) 0 % (0-3) Neutrophils # (Auto) 32.4 x10^3/uL (1.8-7.7) Lymphocytes # (Auto) 0.5 x10^3/uL (1.0-4.8) Monocytes # (Auto) 1.0 x10^3/uL (0.0-1.1) Eosinophils # (Auto) 0.0 x10^3/uL (0.0-0.7) Basophils # (Auto) 0.0 x10^3/uL (0.0-0.2) Sodium Level 133 mmol/L (136-145) Potassium Level 5.2 mmol/L (3.5-5.1) Chloride Level 96 mmol/L (98-107) Carbon Dioxide Level 22 mmol/L (21-32) Anion Gap 15 (6-14) Blood Urea Nitrogen 61 mg/dL (8-26) Creatinine 2.3 mg/dL (0.7-1.3) Estimated GFR (Cockcroft-Gault) 32.7 Glucose Level 149 mg/dL (70-99) Calcium Level 7.3 mg/dL (8.5-10.1) Phosphorus Level 5.7 mg/dL (2.6-4.7) Creatine Kinase 294 U/L (39-308) Albumin 1.6 g/dL (3.4-5.0) O2 Saturation 96 % (92-99) Arterial Blood pH 7.40 (7.35-7.45) Arterial Blood pCO2 at Patient Temp 31 mmHg (35-46) Arterial Blood pO2 at Patient Temp 83 mmHg (65-108) Arterial Blood HCO3 19 mmol/L (21-28) Arterial Blood Base Excess -6 mmol/L (-3-3) FiO2 60 Microbiology 11/29/19 Blood Culture - Preliminary, Resulted NO GROWTH AFTER 2 DAYS Medications Current Medications Etomidate (Amidate) 20 mg STK-MED ONCE IV ; Start 11/29/19 at 07:37; Stop 11/29/19 at 07:37; Status DC Succinylcholine Chloride (Anectine) 200 mg STK-MED ONCE .ROUTE ; Start 11/29/19 at 07:38; Stop 11/29/19 at 07:38; Status DC Propofol 50 ml @ As Directed STK-MED ONCE IV ; Start 11/29/19 at 07:39; Stop 11/29/19 at 07:39; Status DC Piperacillin Sod/ Tazobactam Sod 3.375 gm/Sodium Chloride 50 ml @ 100 mls/hr 1X ONCE IV Last administered on 11/29/19at 08:29; Start 11/29/19 at 07:45; Stop 11/29/19 at 08:14; Status DC Propofol 50 ml @ As Directed STK-MED ONCE IV ; Start 11/29/19 at 08:21; Stop 11/29/19 at 08:21; Status DC Sodium Chloride 1,000 ml @ 1,000 mls/hr 1X ONCE IV Last administered on 11/29/19at 08:32; Start 11/29/19 at 07:30; Stop 11/29/19 at 08:30; Status DC Etomidate (Amidate) 20 mg 1X ONCE IV Last administered on 11/29/19at 08:35; Start 11/29/19 at 07:25; Stop 11/29/19 at 08:30; Status DC Succinylcholine Chloride (Anectine) 100 mg 1X ONCE IV Last administered on 11/29/19at 08:31; Start 11/29/19 at 07:25; Stop 11/29/19 at 08:30; Status DC Propofol (Diprivan) 500 mg 1X ONCE IV Last administered on 11/29/19at 08:33; Start 11/29/19 at 08:45; Stop 11/29/19 at 08:46; Status DC Sodium Chloride 1,000 ml @ 1,000 mls/hr 1X ONCE IV Last administered on 11/29/19at 09:09; Start 11/29/19 at 09:00; Stop 11/29/19 at 09:59; Status DC Propofol (Diprivan) 500 mg 1X ONCE IV Last administered on 11/29/19at 09:30; Start 11/29/19 at 09:30; Stop 11/29/19 at 09:31; Status DC Propofol (Diprivan) 200 mg TITRATE PRN IV SEDATION Last administered on 11/29/19at 09:45; Start 11/29/19 at 09:45; Stop 11/29/19 at 09:47; Status DC Propofol 50 ml @ 0.975 mls/ hr 1X ONCE IV Last administered on 11/29/19at 09:50; Start 11/29/19 at 10:00; Stop 11/29/19 at 10:01; Status DC Vancomycin HCl (Vanco Per Pharmacy) 1 each PRN DAILY PRN MC SEE COMMENTS Last administered on 11/29/19at 15:47; Start 11/29/19 at 10:15; Stop 11/30/19 at 10:42; Status DC Ondansetron HCl (Zofran) 4 mg PRN Q8HRS PRN IV NAUSEA/VOMITING; Start 11/29/19 at 10:15; Stop 11/30/19 at 10:14; Status DC Sodium Chloride 1,000 ml @ 125 mls/hr Q8H IV ; Start 11/29/19 at 10:15; Stop 11/29/19 at 10:54; Status DC Vancomycin HCl 1.5 gm/Sodium Chloride 500 ml @ 250 mls/hr 1X ONCE IV Last administered on 11/29/19at 11:23; Start 11/29/19 at 10:45; Stop 11/29/19 at 12:44; Status DC Acetaminophen (Tylenol) 650 mg Q6HRS PRN PEG MILD PAIN / TEMP > 100.3'F; Start 11/29/19 at 10:30 Sodium Chloride 1,000 ml @ 75 mls/hr CONT PRN IV .; Start 11/29/19 at 10:30; Stop 11/30/19 at 00:15; Status DC Allopurinol (Zyloprim) 100 mg DAILY PEG Last administered on 12/01/19at 09:10; Start 11/30/19 at 09:00 Amiodarone HCl (Cordarone) 200 mg DAILY PEG Last administered on 12/01/19at 09:17; Start 11/30/19 at 09:00 Aspirin (Rosemary Aspirin) 81 mg DAILY PEG ; Start 11/30/19 at 09:00; Stop 11/30/19 at 08:25; Status DC Atorvastatin Calcium (Lipitor) 40 mg QHS PEG Last administered on 11/30/19at 21:10; Start 11/29/19 at 21:00 Metoprolol Tartrate (Lopressor) 50 mg BID PO Last administered on 11/29/19at 20:05; Start 11/29/19 at 21:00 Scopolamine (Transderm-Scop) 1 patch Q3DAYS TD ; Start 11/29/19 at 14:00 Vancomycin HCl (Vancomycin Oral Solution) 125 mg BID PEG Last administered on 12/01/19at 09:07; Start 11/29/19 at 21:00 Famotidine (Pepcid) 20 mg DAILY PEG ; Start 11/30/19 at 09:00; Stop 11/30/19 at 03:05; Status DC Heparin Sodium (Porcine) (Heparin Sodium) 5,000 unit BID SQ Last administered on 11/30/19at 08:21; Start 11/29/19 at 21:00; Stop 11/30/19 at 10:39; Status DC Piperacillin Sod/ Tazobactam Sod 3.375 gm/Sodium Chloride 50 ml @ 100 mls/hr Q6HRS IV Last administered on 11/30/19at 05:33; Start 11/29/19 at 18:00; Stop 11/30/19 at 10:39; Status DC Midazolam HCl 100 mg/Sodium Chloride 80 ml @ 0 mls/hr 1X ONCE IV Last administered on 11/29/19at 12:13; Start 11/29/19 at 12:00; Stop 11/29/19 at 12:01; Status DC Norepinephrine Bitartrate 8 mg/ Dextrose 258 ml @ 12.578 mls/ hr CONT PRN IV PER PROTOCOL Last administered on 11/29/19at 13:50; Start 11/29/19 at 13:00; Stop 11/29/19 at 16:46; Status DC Vasopressin 20 unit/Dextrose 101 ml @ 12 mls/hr CONT PRN IV SEE I/O RECORD Last administered on 12/01/19at 10:39; Start 11/29/19 at 15:15 Vancomycin HCl 1 gm/Sodium Chloride 250 ml @ 250 mls/hr Q24H IV ; Start 11/30/19 at 11:00; Stop 11/30/19 at 10:39; Status DC Vancomycin HCl (Vancomycin Trough Level) 1 each 1X ONCE MC ; Start 12/01/19 at 10:30; Stop 12/01/19 at 10:31; Status Cancel Fentanyl Citrate 30 ml @ 0 mls/hr CONT PRN IV SEE PROTOCOL; Start 11/29/19 at 16:45 Midazolam HCl 100 ml @ 0 mls/hr CONT PRN IV SEE PROTOCOL Last administered on 11/30/19at 09:42; Start 11/29/19 at 16:45 Norepinephrine Bitartrate 32 mg/ Dextrose 250 ml @ 3.047 mls/ hr CONT PRN IV PER PROTOCOL Last administered on 11/30/19at 20:00; Start 11/29/19 at 17:00 Sodium Chloride 1,000 ml @ 125 mls/hr 1X PRN PRN IV SEE COMMENTS; Start 11/30/19 at 00:15 Pantoprazole Sodium (PROTONIX VIAL for IV PUSH) 40 mg DAILYAC IVP ; Start 11/30/19 at 07:30; Stop 11/30/19 at 07:28; Status DC Sodium Chloride 500 ml @ 500 mls/hr 1X ONCE IV Last administered on 11/30/19at 03:30; Start 11/30/19 at 03:30; Stop 11/30/19 at 04:29; Status DC Linezolid/Dextrose 300 ml @ 300 mls/hr Q12HR IV Last administered on 12/01/19at 09:07; Start 11/30/19 at 11:00 Albumin Human 500 ml @ 125 mls/hr 1X ONCE IV Last administered on 11/30/19at 08:18; Start 11/30/19 at 07:00; Stop 11/30/19 at 10:59; Status DC Sodium Bicarbonate 150 meq/Dextrose 1,150 ml @ 125 mls/hr Q9H12M IV Last administered on 12/01/19at 09:05; Start 11/30/19 at 07:00 Pantoprazole Sodium 80 mg/ Sodium Chloride 100 ml @ 10 mls/hr Q10H IV Last administered on 12/01/19at 04:05; Start 11/30/19 at 07:30 Pantoprazole Sodium (PROTONIX VIAL for IV PUSH) 80 mg 1X ONCE IVP Last administered on 11/30/19at 08:19; Start 11/30/19 at 07:30; Stop 11/30/19 at 07:31; Status DC Metoclopramide HCl (Reglan Vial) 10 mg 1X ONCE IVP Last administered on 11/30/19at 08:20; Start 11/30/19 at 07:30; Stop 11/30/19 at 07:40; Status DC Aspirin (Aspirin Chewable) 81 mg DAILYWBKFT PO Last administered on 12/01/19at 09:06; Start 11/30/19 at 08:30 Piperacillin Sod/ Tazobactam Sod 3.375 gm/Sodium Chloride 50 ml @ 100 mls/hr Q8HRS IV ; Start 11/30/19 at 14:00; Stop 11/30/19 at 10:44; Status DC Piperacillin Sod/ Tazobactam Sod 2.25 gm/Sodium Chloride 50 ml @ 100 mls/hr Q6HRS IV ; Start 11/30/19 at 12:00; Stop 11/30/19 at 12:36; Status DC Meropenem 500 mg/ Sodium Chloride 50 ml @ 100 mls/hr Q8HRS IV Last administered on 12/01/19at 05:35; Start 11/30/19 at 14:00; Stop 12/01/19 at 10:47; Status DC Micafungin Sodium 100 mg/Dextrose 100 ml @ 100 mls/hr Q24H IV Last administered on 11/30/19at 13:11; Start 11/30/19 at 13:00 Daptomycin 340 mg/ Sodium Chloride 50 ml @ 100 mls/hr ONCE ONCE IV Last administered on 11/30/19at 14:11; Start 11/30/19 at 13:30; Stop 11/30/19 at 13:59; Status DC Meropenem 500 mg/ Sodium Chloride 50 ml @ 100 mls/hr Q12HR IV ; Start 12/01/19 at 21:00 Active Scripts Active Reported Transderm-Scop (Scopolamine) 1 Each Patch.td72 1 Patch TP Q3DAYS Probiotic (Lactobacillus Combo No.11) 1 Each Cap.sprink 1 Each PO DAILY Metoprolol Tartrate 50 Mg Tablet 1 Tab PEG BID Lipitor (Atorvastatin Calcium) 40 Mg Tablet 1 Tab PEG QHS Calcium 500 + Vit D 200 Caplet (Calcium Carbonate/Vitamin D3) 1 Each Tablet 1 Tab PEG DAILY 30 Days Aspirin 81 Mg Tab.chew 1 Tab PEG DAILY Amiodarone Hcl 200 Mg Tablet 1 Tab PEG DAILY Allopurinol 100 Mg Tablet 1 Tab PEG DAILY Acetaminophen Oral Liquid (Acetaminophen) 650 Mg/20.3 Ml Solution 650 Mg PO PRN Q4HRS PRN Vitals/I & O Vital Sign - Last 24 Hours 11/30/19 11/30/19 11/30/19 11/30/19 12:43 12:45 13:00 14:00 Pulse 102 102 103 Resp 24 24 24 B/P (MAP) 165/70 (101) 163/65 (97) 154/58 (90) Pulse Ox 100 100 98 100 O2 Delivery Ventilator Ventilator Ventilator Ventilator 11/30/19 11/30/19 11/30/19 11/30/19 15:00 15:45 16:00 16:00 Temp 96.2 96.2 Pulse 104 105 100 Resp 24 24 24 B/P (MAP) 153/70 (97) 169/77 (107) 149/62 (91) Pulse Ox 100 100 100 O2 Delivery Ventilator Ventilator Mechanical Ventilator Ventilator 11/30/19 11/30/19 11/30/19 11/30/19 16:45 16:55 17:00 17:30 Pulse 102 102 102 Resp 24 24 24 B/P (MAP) 155/63 (93) 127/58 (81) 134/61 (85) Pulse Ox 100 100 100 100 O2 Delivery Ventilator Ventilator Ventilator Ventilator 11/30/19 11/30/19 11/30/19 11/30/19 18:00 19:00 19:13 19:30 Temp 97.0 97.0 97.0 97.0 Pulse 101 115 101 Resp B/P (MAP) 119/55 (76) 111/55 (73) 119/55 Pulse Ox 98 90 O2 Delivery Ventilator Ventilator Mechanical Ventilator 11/30/19 11/30/19 11/30/19 11/30/19 20:00 20:53 21:00 22:00 Temp 98.0 98.1 98.0 98.1 Pulse 105 108 113 Resp 23 B/P (MAP) 119/52 (74) 129/56 (80) 118/53 (74) Pulse Ox 90 100 93 93 O2 Delivery Ventilator Ventilator Ventilator Ventilator 11/30/19 11/30/19 11/30/19 12/01/19 23:00 23:59 23:59 00:26 Temp 98.0 98.0 Pulse 106 108 Resp B/P (MAP) 116/55 (75) 114/60 (78) Pulse Ox 93 92 100 O2 Delivery Ventilator Ventilator Mechanical Ventilator Ventilator 12/01/19 12/01/19 12/01/19 12/01/19 01:00 02:00 03:00 04:00 Temp 99.1 99.1 Pulse 112 112 110 109 Resp 23 B/P (MAP) 120/55 (76) 136/60 (85) 95/45 (62) 95/49 (64) Pulse Ox 100 100 100 100 O2 Delivery Ventilator Ventilator Ventilator Ventilator 12/01/19 12/01/19 12/01/19 12/01/19 04:00 04:38 05:00 06:00 Pulse 108 107 Resp B/P (MAP) 100/52 (68) 92/51 (65) Pulse Ox 100 100 100 O2 Delivery Mechanical Ventilator Ventilator Ventilator Ventilator 12/01/19 12/01/19 12/01/19 12/01/19 07:00 07:15 07:30 07:45 Pulse 107 107 107 107 Resp 23 B/P (MAP) 86/51 (63) 93/49 (64) 104/56 (72) 105/49 (67) Pulse Ox 100 100 100 100 O2 Delivery Ventilator Ventilator Ventilator Ventilator 12/01/19 12/01/19 12/01/19 12/01/19 08:00 08:00 08:15 08:30 Temp 98.9 98.9 Pulse 110 110 110 Resp 23 B/P (MAP) 108/52 (70) 106/50 (68) 106/51 (69) Pulse Ox 100 100 100 O2 Delivery Ventilator Mechanical Ventilator Ventilator Ventilator 12/01/19 12/01/19 12/01/19 12/01/19 08:45 09:00 09:15 09:17 Pulse 110 110 110 Resp 23 B/P (MAP) 108/55 (72) 93/53 (66) 93/53 Pulse Ox 100 100 100 O2 Delivery Ventilator Ventilator Ventilator 12/01/19 12/01/19 12/01/19 12/01/19 09:30 09:45 10:00 10:15 Pulse 110 110 110 110 Resp 24 24 B/P (MAP) 90/43 (59) 77/44 (55) 83/46 (58) 86/49 (61) Pulse Ox 100 100 100 100 O2 Delivery Ventilator Ventilator Ventilator Ventilator 12/01/19 12/01/19 12/01/19 12/01/19 10:30 10:45 11:00 11:09 Pulse 106 106 106 Resp 24 B/P (MAP) 87/44 (58) 94/48 (63) 98/53 (68) Pulse Ox 100 100 100 100 O2 Delivery Ventilator Ventilator Ventilator Ventilator Intake and Output 11/30/19 11/30/19 12/01/19 15:00 23:00 07:00 Intake Total 60 ml 1736 ml 2212 ml Output Total 97 ml 395 ml 45 ml Balance -37 ml 1341 ml 2167 ml Justifications for Admission Other Justification Nutrition Consultation Dietary Evaluation: Recommendations by RD: Dietary education by RD, Increase Calorie Intake Comments: REC initation of nutrition support within 24 - 48 hrs of intubation REC TFs if pt appropriate for enteral nutriton (discussed w/RN, monitoring OGT output); if able to feed enterally, receommend TFs per following: VitalAF@20 ml/hr, increase 10 ml q8 hrs as tolerated to goal rate 40 ml/hr w/125 ml water flushes q4 hrs or flushes per MD If unable to feed enterally, REC TPN (pt has central line) per following dextrose, 70g AA, 20g lipids Expected Outcomes/Goals: Initiation of nutrition support within 24 - 48 hrs of intubation Malnutrition Findings: Body Fat Depletion (Non Severe: Mild Depletion Weight Status: Appropriate PHILLY FONSECA MD Dec 01, 2019 12:36
[2019-12-01] MEDS: MICAFUNGIN 100 MG in IV DEXTROSE 5% 100ML 100 ML IV SCH (15:12)
--- NOTE | 2019-12-01 18:39 | NUR ---
Spoke with [place]-daughter is in from [place], discussed prognosis and code status. She expressed concern and will speak with the rest of family tonight. Pt remains unresponsive on vent, pressors to keep BP within ordered range, foul mucoid, green, blood tinged bowel movement x2. 25ml urine output entire shift doctors aware. Daughter will call unit tomorrow to let nurse know family decisions on code status and treatments. .
[2019-12-01] MEDS: ATORVASTATIN CALCIUM 40 MG TABLET. PEG SCH (21:01)
[2019-12-01] MEDS: NOREPINEPHRINE VIAL 32 MG in IV DEXTROSE 5% 218 ML IV PRN (21:03)
[2019-12-02] VITALS (27 sets, daily range): BP systolic 87–148; BP diastolic 44–69
[2019-12-02] MEDS: PANTOPRAZOLE SODIUM IV DRIP 80 MG in IV NORMAL SALINE 100ML 100 ML IV SCH ×2 (04:16→14:36)
[2019-12-02] MEDS: VASOPRESSIN 20 UNIT in IV DEXTROSE 5% 100ML 100 ML IV PRN ×2 (04:16→13:02)
[2019-12-02 06:55] LABS: BASO # 0.1 x10^3/uL (0.0-0.2); BASO % 0 % (0-3); EOS # 0.1 x10^3/uL (0.0-0.7); EOS % 0 % (0-3); LYMPH # 0.7 x10^3/uL (1.0-4.8); LYMPH % 2 % (24-48); MEAN CORPUSCULAR HEMOGLOBIN 31 pg (25-35); MEAN CORPUSCULAR HGB CONC 33 g/dL (31-37); MEAN CORPUSCULAR VOLUME 92 fL (79-100); MONO # 0.4 x10^3/uL (0.0-1.1); MONO % 1 % (0-9); NEUT # 34.9 x10^3/uL (1.8-7.7); NEUT % 96 % (31-73); PLATELET COUNT 188 x10^3/uL (140-400); RED BLOOD COUNT 2.03 x10^6/uL (4.30-5.70); WHITE BLOOD COUNT 36.2 x10^3/uL (4.0-11.0)
[2019-12-02 06:58] LABS: HEMATOCRIT 18.7 % (39.0-53.0); HEMOGLOBIN 6.2 g/dL (13.0-17.5)
[2019-12-02 07:04] LABS: CALCIUM 6.9 mg/dL (8.5-10.1); CREATININE 2.9 mg/dL (0.7-1.3); POTASSIUM 4.4 mmol/L (3.5-5.1)
--- NOTE | 2019-12-02 07:56 | PDOC ---
Infectious Disease Note Subjective: Subjective Intubated, unresponsive On pressors FiO2 40 with PEEP of 7 Discussed with nursing staff Vital Signs: Vital Signs Vital Signs Date Time Temp Pulse Resp B/P (MAP) Pulse Ox O2 Delivery O2 Flow Rate FiO2 12/02/19 07:00 96 24 91/52 (65) 100 Ventilator 12/02/19 04:00 99.8 99.8 Physical Exam: PHYSICAL EXAM GENERAL: Intubated.unresponsive HEENT: NG tube present. Eyes closed. NECK: Supple. IJ present LUNGS: Decreased breath sounds. HEART: S1, S2 irregular. ABDOMEN: Soft. Bowel sounds present. Gastrostomy tube in place. Patel in place EXTREMITIES: No edema, no cyanosis. DERMATOLOGIC: Warm, dry. No generalized rash, dry skin. NEUROLOGIC: On ventilator. Unresponsive Medications: Inpatient Meds: Current Medications Medications (Trade) Dose Ordered Sig/Jaleesa Start Time Stop Time Status Last Admin Dose Admin Acetaminophen (Tylenol) 650 mg Q6HRS PRN 11/29/19 10:30 Albumin Human 500 ml @ 125 mls/hr 1X ONCE 11/30/19 07:00 11/30/19 10:59 DC 11/30/19 08:18 125 MLS/HR Allopurinol (Zyloprim) 100 mg DAILY 11/30/19 09:00 12/01/19 09:10 100 MG Amiodarone HCl (Cordarone) 200 mg DAILY 11/30/19 09:00 12/01/19 09:17 200 MG Aspirin (Aspirin Chewable) 81 mg [id number] 11/30/19 08:30 12/01/19 09:06 81 MG Aspirin (Rosemary Aspirin) 81 mg DAILY 11/30/19 09:00 11/30/19 08:25 DC Atorvastatin Calcium (Lipitor) 40 mg QHS 11/29/19 21:00 12/01/19 21:01 40 MG Daptomycin 340 mg/ Sodium Chloride 50 ml @ 100 mls/hr ONCE ONCE 11/30/19 13:30 11/30/19 13:59 DC 11/30/19 14:11 100 MLS/HR Daptomycin 390 mg/ Sodium Chloride 50 ml @ 100 mls/hr Q24H 12/02/19 09:00 Etomidate (Amidate) 20 mg 1X ONCE 11/29/19 07:25 11/29/19 08:30 DC 11/29/19 08:35 20 MG Famotidine (Pepcid) 20 mg DAILY 11/30/19 09:00 11/30/19 03:05 DC Fentanyl Citrate 30 ml @ 0 mls/hr CONT PRN 11/29/19 16:45 Heparin Sodium (Porcine) (Heparin Sodium) 5,000 unit BID 11/29/19 21:00 11/30/19 10:39 DC 11/30/19 08:21 5,000 UNIT Linezolid/Dextrose 300 ml @ 300 mls/hr Q12HR 11/30/19 11:00 12/01/19 21:02 300 MLS/HR Meropenem 500 mg/ Sodium Chloride 50 ml @ 100 mls/hr Q12HR 12/01/19 21:00 12/01/19 21:02 100 MLS/HR Metoclopramide HCl (Reglan Vial) 10 mg 1X ONCE 11/30/19 07:30 11/30/19 07:40 DC 11/30/19 08:20 10 MG Metoprolol Tartrate (Lopressor) 50 mg BID 11/29/19 21:00 11/29/19 20:05 50 MG Micafungin Sodium 100 mg/Dextrose 100 ml @ 100 mls/hr Q24H 11/30/19 13:00 12/01/19 15:12 100 MLS/HR Midazolam HCl 100 ml @ 0 mls/hr CONT PRN 11/29/19 16:45 11/30/19 09:42 8 MLS/HR Midazolam HCl 100 mg/Sodium Chloride 80 ml @ 0 mls/hr 1X ONCE 11/29/19 12:00 11/29/19 12:01 DC 11/29/19 12:13 5 MLS/HR Norepinephrine Bitartrate 32 mg/ Dextrose 250 ml @ 3.047 mls/ hr CONT PRN 11/29/19 17:00 12/01/19 21:03 7.313 MLS/HR Norepinephrine Bitartrate 8 mg/ Dextrose 258 ml @ 12.578 mls/ hr CONT PRN 11/29/19 13:00 11/29/19 16:46 DC 11/29/19 13:50 12.578 MLS/HR Ondansetron HCl (Zofran) 4 mg PRN Q8HRS PRN 11/29/19 10:15 11/30/19 10:14 DC Pantoprazole Sodium (PROTONIX VIAL for IV PUSH) 80 mg 1X ONCE 11/30/19 07:30 11/30/19 07:31 DC 11/30/19 08:19 80 MG Pantoprazole Sodium 80 mg/ Sodium Chloride 100 ml @ 10 mls/hr Q10H 11/30/19 07:30 12/02/19 04:16 10 MLS/HR Piperacillin Sod/ Tazobactam Sod 2.25 gm/Sodium Chloride 50 ml @ 100 mls/hr Q6HRS 11/30/19 12:00 11/30/19 12:36 DC Piperacillin Sod/ Tazobactam Sod 3.375 gm/Sodium Chloride 50 ml @ 100 mls/hr Q8HRS 11/30/19 14:00 11/30/19 10:44 DC Propofol 50 ml @ 0.975 mls/ hr 1X ONCE 11/29/19 10:00 11/29/19 10:01 DC 11/29/19 09:50 9.8 MLS/HR Propofol (Diprivan) 200 mg TITRATE PRN 11/29/19 09:45 11/29/19 09:47 DC 11/29/19 09:45 200 MG Scopolamine (Transderm-Scop) 1 patch Q3DAYS 11/29/19 14:00 Sodium Bicarbonate 150 meq/Dextrose 1,150 ml @ 75 mls/hr [id number] 11/30/19 07:00 12/01/19 21:02 75 MLS/HR Sodium Chloride 500 ml @ 500 mls/hr 1X ONCE 11/30/19 03:30 11/30/19 04:29 DC 11/30/19 03:30 500 MLS/HR Succinylcholine Chloride (Anectine) 100 mg 1X ONCE 11/29/19 07:25 11/29/19 08:30 DC 11/29/19 08:31 100 MG Vancomycin HCl (Vanco Per Pharmacy) 1 each PRN DAILY PRN 11/29/19 10:15 11/30/19 10:42 DC 11/29/19 15:47 1 EACH Vancomycin HCl (Vancomycin Trough Level) 1 each 1X ONCE 12/01/19 10:30 12/01/19 10:31 Cancel Vancomycin HCl (Vancomycin Oral Solution) 125 mg BID 11/29/19 21:00 12/01/19 21:01 125 MG Vancomycin HCl 1.5 gm/Sodium Chloride 500 ml @ 250 mls/hr 1X ONCE 11/29/19 10:45 11/29/19 12:44 DC 11/29/19 11:23 250 MLS/HR Vancomycin HCl 1 gm/Sodium Chloride 250 ml @ 250 mls/hr Q24H 11/30/19 11:00 11/30/19 10:39 DC Vasopressin 20 unit/Dextrose 101 ml @ 12 mls/hr CONT PRN 11/29/19 15:15 12/02/19 04:16 12 MLS/HR Labs: Lab Laboratory Tests Test 12/01/19 08:55 12/02/19 06:30 O2 Saturation 96 % (92-99) Arterial Blood pH 7.40 (7.35-7.45) Arterial Blood pCO2 at Patient Temp 31 mmHg (35-46) Arterial Blood pO2 at Patient Temp 83 mmHg (65-108) Arterial Blood HCO3 19 mmol/L (21-28) Arterial Blood Base Excess -6 mmol/L (-3-3) FiO2 60 White Blood Count 36.2 x10^3/uL (4.0-11.0) Red Blood Count 2.03 x10^6/uL (4.30-5.70) Hemoglobin 6.2 g/dL (13.0-17.5) Hematocrit 18.7 % (39.0-53.0) Mean Corpuscular Volume 92 fL (79-100) Mean Corpuscular Hemoglobin 31 pg (25-35) Mean Corpuscular Hemoglobin Concent 33 g/dL (31-37) Red Cell Distribution Width 19.0 % (11.5-14.5) Platelet Count 188 x10^3/uL (140-400) Neutrophils (%) (Auto) 96 % (31-73) Lymphocytes (%) (Auto) 2 % (24-48) Monocytes (%) (Auto) 1 % (0-9) Eosinophils (%) (Auto) 0 % (0-3) Basophils (%) (Auto) 0 % (0-3) Neutrophils # (Auto) 34.9 x10^3/uL (1.8-7.7) Lymphocytes # (Auto) 0.7 x10^3/uL (1.0-4.8) Monocytes # (Auto) 0.4 x10^3/uL (0.0-1.1) Eosinophils # (Auto) 0.1 x10^3/uL (0.0-0.7) Basophils # (Auto) 0.1 x10^3/uL (0.0-0.2) Sodium Level 129 mmol/L (136-145) Potassium Level 4.4 mmol/L (3.5-5.1) Chloride Level 90 mmol/L (98-107) Carbon Dioxide Level 26 mmol/L (21-32) Anion Gap 13 (6-14) Blood Urea Nitrogen 68 mg/dL (8-26) Creatinine 2.9 mg/dL (0.7-1.3) Estimated GFR (Cockcroft-Gault) 25.0 Glucose Level 197 mg/dL (70-99) Calcium Level 6.9 mg/dL (8.5-10.1) Objective: Assessment: Gram-positive cocci bacteremia 1 out of 2 bottles present on admission Leukocytosis could have reactive, 1. Severe sepsis, source could be respiratory versus GI 2. Acute hypoxic respiratory failure, status post intubation. 3. Pulmonary infiltrates, possible aspiration. 4. 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 5. Dysphagia, with PEG tube in place 6. History of paroxysmal atrial fibrillation. 7. History of lung cancer. 8. History of Clostridium difficile colitis 09/2019. 9. Prerenal azotemia. 10. Severe Protein-calorie malnutrition. 11. Lactic acidosis. 12. Anemia. Status post blood transfusion 13. GI bleed, could be from ischemic colitis. 14.Hyponatremia 15. SERAFIN, metabolic acidosis 16. COVID-19 negative Plan: Plan of Care Continue daptomycin Continue linezolid, meropenem, micafungin Continue p.o. vancomycin with history of C. difficile Follow up labs and cultures. Continue supportive care. Critically ill. Prognosis is very poor. Awaiting family meeting later today Consider palliative care Discussed with nursing staff. GIFTY DHILLON MD Dec 02, 2019 07:56
[2019-12-02 07:57] LABS: BASE EXCESS ABG -2 mmol/L (-3-3); HCO3 ABG 21 mmol/L (21-28); PCO2 ABG 27 mmHg (35-46); PO2 ABG 201 mmHg (65-108); SAT O2 ABG 99 % (92-99)
[2019-12-02 08:03] LABS: FIO2 ABG 60%+7
[2019-12-02] MEDS: ASPIRIN CHEWABLE 81 MG TABLET. PO SCH (08:44)
[2019-12-02] MEDS: MEROPENEM 500 MG in IV NORMAL SALINE 50ML 50 ML IV SCH (08:48)
[2019-12-02] MEDS: AMIODARONE HCL 200 MG TABLET. PEG SCH (08:50)
[2019-12-02] MEDS: SCOPOLAMINE 1.5MG PATCH. TD SCH (08:51)
[2019-12-02] MEDS: ALLOPURINOL 100 MG TABLET. PEG SCH (08:51)
[2019-12-02] MEDS: VANCOMYCIN 125 MG/2.5 ML ORAL SOLUTION. PEG SCH (08:51)
[2019-12-02] MEDS: METOPROLOL TART IMMED RELEASE 50 MG TABLET. PO SCH (08:52)
[2019-12-02] MEDS ORDERED: DAPTOmycin (GENERIC) IVPB 390 MG in IV NORMAL SALINE 50ML 50 ML IV SCH (09:00)
--- NOTE | 2019-12-02 10:02 | NUR ---
SS following up with discharge planning. SS reviewed pt chart and discussed with pt RN. COVID19 negative. Pt remains on the vent at this time. Full Code. Pt on IV Daptomycin, IV Micafungin, and IV Zyvox. Pt's family to come today to discuss code status and goals of care. SS will continue to follow for discharge planning.
--- NOTE | 2019-12-02 10:25 | PDOC ---
DATE OF SERVICE DATE: 12/02/19 TIME: 10:22 SUBJECTIVE ROS Intubated, Unresponsive, Off sedation , On pressors OBJECTIVE Vital Signs Vital Signs Date Time Temp Pulse Resp B/P (MAP) Pulse Ox O2 Delivery O2 Flow Rate FiO2 12/02/19 08:50 108 100/54 12/02/19 07:30 100 Ventilator 12/02/19 07:00 24 12/02/19 04:00 99.8 99.8 I & 0 Intake and Output 12/02/19 07:00 Intake Total 3474 ml Output Total 363 ml Balance 3111 ml Intake IV Total 2819 ml Tube Feeding 655 ml Output Urine Total 53 ml Gastric Drainage Total 310 ml # Bowel Movements 2 PHYSICAL EXAM Physical Exam GENERAL: Intubated.unresponsive HEENT: NG tube present. NECK: Supple. IJ present LUNGS: Decreased breath sounds. HEART: S1, S2 irregular. ABDOMEN: Soft. Gastrostomy tube in place. Patel in place EXTREMITIES: No edema, no cyanosis. DERMATOLOGIC: No generalized rash, NEUROLOGIC: On ventilator. Unresponsive DIAGNOSIS/ASSESSMENT Assessment & Plan SERAFIN- ATN,Oligo-anuric severe sepsis/ Hypotension Have been on IVF , on pressors UA unremarkable, CT scan unremarkable Kidneys Critically ill,poor prognosis , CRRT if aggressive care continued in opinion of other consultants ( (if severely hypotensive , will not tolerate CRRT ) Pending family's decision on goals of care Anemia- - Acute drop in Hgb HyperKalemia - normal Acidosis-Resolved Severe Sepsis - 2/2 Pulmonary etiology Acute hypoxic and hypercarbic respiratory failure, on the ventilator- Multifocal reticulonodular densities in the lungs bilaterally with more confluent consolidation in the left lower lobe consistent with lobar pneumonia Cerebrovascular accident ,right-sided hemiparesis, global aphasia, encephalopathy Oropharyngeal dysphagia, maintain on PEG tube feedings. Paroxysmal atrial fibrillation Renal Cysts- Bilateral renal cortical cysts, requiring no additional imaging follow-up are noted, largest measuring 7.4 cm of the superior pole left kidney. Mansoor RN COMMENT/RELEVANT DATA Meds Current Medications Medications (Trade) Dose Ordered Sig/Jaleesa Start Time Stop Time Status Last Admin Dose Admin Acetaminophen (Tylenol) 650 mg Q6HRS PRN 11/29/19 10:30 Albumin Human 500 ml @ 125 mls/hr 1X ONCE 11/30/19 07:00 11/30/19 10:59 DC 11/30/19 08:18 125 MLS/HR Allopurinol (Zyloprim) 100 mg DAILY 11/30/19 09:00 12/02/19 08:51 100 MG Amiodarone HCl (Cordarone) 200 mg DAILY 11/30/19 09:00 12/02/19 08:50 200 MG Aspirin (Aspirin Chewable) 81 mg [id number] 11/30/19 08:30 12/01/19 09:06 81 MG Aspirin (Rsoemary Aspirin) 81 mg DAILY 11/30/19 09:00 11/30/19 08:25 DC Atorvastatin Calcium (Lipitor) 40 mg QHS 11/29/19 21:00 12/01/19 21:01 40 MG Daptomycin 340 mg/ Sodium Chloride 50 ml @ 100 mls/hr ONCE ONCE 11/30/19 13:30 11/30/19 13:59 DC 11/30/19 14:11 100 MLS/HR Daptomycin 390 mg/ Sodium Chloride 50 ml @ 100 mls/hr Q24H 12/02/19 09:00 12/02/19 09:54 100 MLS/HR Etomidate (Amidate) 20 mg 1X ONCE 11/29/19 07:25 11/29/19 08:30 DC 11/29/19 08:35 20 MG Famotidine (Pepcid) 20 mg DAILY 11/30/19 09:00 11/30/19 03:05 DC Fentanyl Citrate 30 ml @ 0 mls/hr CONT PRN 11/29/19 16:45 Heparin Sodium (Porcine) (Heparin Sodium) 5,000 unit BID 11/29/19 21:00 11/30/19 10:39 DC 11/30/19 08:21 5,000 UNIT Linezolid/Dextrose 300 ml @ 300 mls/hr Q12HR 11/30/19 11:00 12/02/19 10:02 300 MLS/HR Meropenem 500 mg/ Sodium Chloride 50 ml @ 100 mls/hr Q12HR 12/01/19 21:00 12/02/19 08:48 100 MLS/HR Metoclopramide HCl (Reglan Vial) 10 mg 1X ONCE 11/30/19 07:30 11/30/19 07:40 DC 11/30/19 08:20 10 MG Metoprolol Tartrate (Lopressor) 50 mg BID 11/29/19 21:00 11/29/19 20:05 50 MG Micafungin Sodium 100 mg/Dextrose 100 ml @ 100 mls/hr Q24H 11/30/19 13:00 12/01/19 15:12 100 MLS/HR Midazolam HCl 100 ml @ 0 mls/hr CONT PRN 11/29/19 16:45 11/30/19 09:42 8 MLS/HR Midazolam HCl 100 mg/Sodium Chloride 80 ml @ 0 mls/hr 1X ONCE 11/29/19 12:00 11/29/19 12:01 DC 11/29/19 12:13 5 MLS/HR Norepinephrine Bitartrate 32 mg/ Dextrose 250 ml @ 3.047 mls/ hr CONT PRN 11/29/19 17:00 12/01/19 21:03 7.313 MLS/HR Norepinephrine Bitartrate 8 mg/ Dextrose 258 ml @ 12.578 mls/ hr CONT PRN 11/29/19 13:00 11/29/19 16:46 DC 11/29/19 13:50 12.578 MLS/HR Ondansetron HCl (Zofran) 4 mg PRN Q8HRS PRN 11/29/19 10:15 11/30/19 10:14 DC Pantoprazole Sodium (PROTONIX VIAL for IV PUSH) 80 mg 1X ONCE 11/30/19 07:30 11/30/19 07:31 DC 11/30/19 08:19 80 MG Pantoprazole Sodium 80 mg/ Sodium Chloride 100 ml @ 10 mls/hr Q10H 11/30/19 07:30 12/02/19 04:16 10 MLS/HR Piperacillin Sod/ Tazobactam Sod 2.25 gm/Sodium Chloride 50 ml @ 100 mls/hr Q6HRS 11/30/19 12:00 11/30/19 12:36 DC Piperacillin Sod/ Tazobactam Sod 3.375 gm/Sodium Chloride 50 ml @ 100 mls/hr Q8HRS 11/30/19 14:00 11/30/19 10:44 DC Propofol 50 ml @ 0.975 mls/ hr 1X ONCE 11/29/19 10:00 11/29/19 10:01 DC 11/29/19 09:50 9.8 MLS/HR Propofol (Diprivan) 200 mg TITRATE PRN 11/29/19 09:45 11/29/19 09:47 DC 11/29/19 09:45 200 MG Scopolamine (Transderm-Scop) 1 patch Q3DAYS 11/29/19 14:00 12/02/19 08:51 1 PATCH Sodium Bicarbonate 150 meq/Dextrose 1,150 ml @ 75 mls/hr [id number] 11/30/19 07:00 12/01/19 21:02 75 MLS/HR Sodium Chloride 500 ml @ 500 mls/hr 1X ONCE 11/30/19 03:30 11/30/19 04:29 DC 11/30/19 03:30 500 MLS/HR Succinylcholine Chloride (Anectine) 100 mg 1X ONCE 11/29/19 07:25 11/29/19 08:30 DC 11/29/19 08:31 100 MG Vancomycin HCl (Vanco Per Pharmacy) 1 each PRN DAILY PRN 11/29/19 10:15 11/30/19 10:42 DC 11/29/19 15:47 1 EACH Vancomycin HCl (Vancomycin Trough Level) 1 each 1X ONCE 12/01/19 10:30 12/01/19 10:31 Cancel Vancomycin HCl (Vancomycin Oral Solution) 125 mg BID 11/29/19 21:00 12/02/19 08:51 125 MG Vancomycin HCl 1.5 gm/Sodium Chloride 500 ml @ 250 mls/hr 1X ONCE 11/29/19 10:45 11/29/19 12:44 DC 11/29/19 11:23 250 MLS/HR Vancomycin HCl 1 gm/Sodium Chloride 250 ml @ 250 mls/hr Q24H 11/30/19 11:00 11/30/19 10:39 DC Vasopressin 20 unit/Dextrose 101 ml @ 12 mls/hr CONT PRN 11/29/19 15:15 12/02/19 04:16 12 MLS/HR Lab Laboratory Tests Test 12/02/19 06:30 12/02/19 08:00 White Blood Count 36.2 x10^3/uL (4.0-11.0) Red Blood Count 2.03 x10^6/uL (4.30-5.70) Hemoglobin 6.2 g/dL (13.0-17.5) Hematocrit 18.7 % (39.0-53.0) Mean Corpuscular Volume 92 fL (79-100) Mean Corpuscular Hemoglobin 31 pg (25-35) Mean Corpuscular Hemoglobin Concent 33 g/dL (31-37) Red Cell Distribution Width 19.0 % (11.5-14.5) Platelet Count 188 x10^3/uL (140-400) Neutrophils (%) (Auto) 96 % (31-73) Lymphocytes (%) (Auto) 2 % (24-48) Monocytes (%) (Auto) 1 % (0-9) Eosinophils (%) (Auto) 0 % (0-3) Basophils (%) (Auto) 0 % (0-3) Neutrophils # (Auto) 34.9 x10^3/uL (1.8-7.7) Lymphocytes # (Auto) 0.7 x10^3/uL (1.0-4.8) Monocytes # (Auto) 0.4 x10^3/uL (0.0-1.1) Eosinophils # (Auto) 0.1 x10^3/uL (0.0-0.7) Basophils # (Auto) 0.1 x10^3/uL (0.0-0.2) Sodium Level 129 mmol/L (136-145) Potassium Level 4.4 mmol/L (3.5-5.1) Chloride Level 90 mmol/L (98-107) Carbon Dioxide Level 26 mmol/L (21-32) Anion Gap 13 (6-14) Blood Urea Nitrogen 68 mg/dL (8-26) Creatinine 2.9 mg/dL (0.7-1.3) Estimated GFR (Cockcroft-Gault) 25.0 Glucose Level 197 mg/dL (70-99) Calcium Level 6.9 mg/dL (8.5-10.1) Magnesium Level 1.8 mg/dL (1.8-2.4) O2 Saturation 99 % (92-99) Arterial Blood pH 7.51 (7.35-7.45) Arterial Blood pCO2 at Patient Temp 27 mmHg (35-46) Arterial Blood pO2 at Patient Temp 201 mmHg (65-108) Arterial Blood HCO3 21 mmol/L (21-28) Arterial Blood Base Excess -2 mmol/L (-3-3) FiO2 60%+7 Results All relevant outside records, renal labs, imaging studies, telemetry/EKG's were reviewed. Justicifation of Admission Dx: Justifications for Admission: Justification of Admission Dx: Yes Sepsis: Altered Mental Status SEB HERNANDEZ MD Dec 02, 2019 10:25
--- NOTE | 2019-12-02 10:32 | PDOC ---
PROGRESS NOTES Date of Service DATE: 12/02/19 TIME: 10:28 Subjective Subjective unresponsive on ventilator and pressors and protonix iv drip. 1 of 2 BC pos for GPC. creatinine 2.9 and hgb 6.2. discussed with his nurse. Objective Objective Vital Signs Date Time Temp Pulse Resp B/P (MAP) Pulse Ox O2 Delivery O2 Flow Rate FiO2 12/02/19 08:50 108 100/54 12/02/19 07:30 100 Ventilator 12/02/19 07:00 24 12/02/19 04:00 99.8 99.8 11/30/19 04:00 25.0 Intake and Output 12/02/19 07:00 Intake Total 3474 ml Output Total 363 ml Balance 3111 ml Intake IV Total 2819 ml Tube Feeding 655 ml Output Urine Total 53 ml Gastric Drainage Total 310 ml # Bowel Movements 2 Physical Exam Abdomen: Soft, Other (bowel sounds heard) Heart: Regular rate, Normal S1, Normal S2 Extremities: No edema General: Other (unresponsive) Lungs: Clear to auscultation Neck: Supple Neuro: Other (unresponsive) Psych/Mental Status: Other (unresponsive) Skin: No rashes Assessment Assessment Problems LLL pneumonia. severe sepsis with shock and multi organ failure on pressors acute kidney failure. no urine output 2. Acute hypoxic and hypercarbic respiratory failure, on the ventilator. 3. Leukocytosis.worse 4. 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 5. anemia. hgb lower 6. severe protein calorie malnutrition 7. Hyperlipidemia. 8. Paroxysmal atrial fibrillation, currently in sinus rhythm. severe protein calorie malnutrition Medical Problems: (1) Pneumonia Status: Acute (2) Respiratory failure, acute Status: Acute (3) Severe sepsis Status: Acute Plan Plan of Care transfuse 1 unit prbc continue ventilator support continue iv daptomycin and meropenem and zyvox and micafungin and vancomycin by peg continue pressors prognosis is poor and family to make decisions regarding code status and palliative care Comment Review of Relevant I have reviewed the following items shadi (where applicable) has been applied. Labs Laboratory Tests Test 12/01/19 06:45 12/01/19 08:55 12/02/19 06:30 12/02/19 08:00 White Blood Count 33.9 x10^3/uL (4.0-11.0) 36.2 x10^3/uL (4.0-11.0) Red Blood Count 2.34 x10^6/uL (4.30-5.70) 2.03 x10^6/uL (4.30-5.70) Hemoglobin 7.2 g/dL (13.0-17.5) 6.2 g/dL (13.0-17.5) Hematocrit 22.1 % (39.0-53.0) 18.7 % (39.0-53.0) Mean Corpuscular Volume 95 fL (79-100) 92 fL (79-100) Mean Corpuscular Hemoglobin 31 pg (25-35) 31 pg (25-35) Mean Corpuscular Hemoglobin Concent 33 g/dL (31-37) 33 g/dL (31-37) Red Cell Distribution Width 19.1 % (11.5-14.5) 19.0 % (11.5-14.5) Platelet Count 225 x10^3/uL (140-400) 188 x10^3/uL (140-400) Neutrophils (%) (Auto) 96 % (31-73) 96 % (31-73) Lymphocytes (%) (Auto) 2 % (24-48) 2 % (24-48) Monocytes (%) (Auto) 3 % (0-9) 1 % (0-9) Eosinophils (%) (Auto) 0 % (0-3) 0 % (0-3) Basophils (%) (Auto) 0 % (0-3) 0 % (0-3) Neutrophils # (Auto) 32.4 x10^3/uL (1.8-7.7) 34.9 x10^3/uL (1.8-7.7) Lymphocytes # (Auto) 0.5 x10^3/uL (1.0-4.8) 0.7 x10^3/uL (1.0-4.8) Monocytes # (Auto) 1.0 x10^3/uL (0.0-1.1) 0.4 x10^3/uL (0.0-1.1) Eosinophils # (Auto) 0.0 x10^3/uL (0.0-0.7) 0.1 x10^3/uL (0.0-0.7) Basophils # (Auto) 0.0 x10^3/uL (0.0-0.2) 0.1 x10^3/uL (0.0-0.2) Sodium Level 133 mmol/L (136-145) 129 mmol/L (136-145) Potassium Level 5.2 mmol/L (3.5-5.1) 4.4 mmol/L (3.5-5.1) Chloride Level 96 mmol/L (98-107) 90 mmol/L (98-107) Carbon Dioxide Level 22 mmol/L (21-32) 26 mmol/L (21-32) Anion Gap 15 (6-14) 13 (6-14) Blood Urea Nitrogen 61 mg/dL (8-26) 68 mg/dL (8-26) Creatinine 2.3 mg/dL (0.7-1.3) 2.9 mg/dL (0.7-1.3) Estimated GFR (Cockcroft-Gault) 32.7 25.0 Glucose Level 149 mg/dL (70-99) 197 mg/dL (70-99) Calcium Level 7.3 mg/dL (8.5-10.1) 6.9 mg/dL (8.5-10.1) Phosphorus Level 5.7 mg/dL (2.6-4.7) Creatine Kinase 294 U/L (39-308) Albumin 1.6 g/dL (3.4-5.0) O2 Saturation 96 % (92-99) 99 % (92-99) Arterial Blood pH 7.40 (7.35-7.45) 7.51 (7.35-7.45) Arterial Blood pCO2 at Patient Temp 31 mmHg (35-46) 27 mmHg (35-46) Arterial Blood pO2 at Patient Temp 83 mmHg (65-108) 201 mmHg (65-108) Arterial Blood HCO3 19 mmol/L (21-28) 21 mmol/L (21-28) Arterial Blood Base Excess -6 mmol/L (-3-3) -2 mmol/L (-3-3) FiO2 60 60%+7 Magnesium Level 1.8 mg/dL (1.8-2.4) Laboratory Tests Test 12/02/19 06:30 12/02/19 08:00 White Blood Count 36.2 x10^3/uL (4.0-11.0) Red Blood Count 2.03 x10^6/uL (4.30-5.70) Hemoglobin 6.2 g/dL (13.0-17.5) Hematocrit 18.7 % (39.0-53.0) Mean Corpuscular Volume 92 fL (79-100) Mean Corpuscular Hemoglobin 31 pg (25-35) Mean Corpuscular Hemoglobin Concent 33 g/dL (31-37) Red Cell Distribution Width 19.0 % (11.5-14.5) Platelet Count 188 x10^3/uL (140-400) Neutrophils (%) (Auto) 96 % (31-73) Lymphocytes (%) (Auto) 2 % (24-48) Monocytes (%) (Auto) 1 % (0-9) Eosinophils (%) (Auto) 0 % (0-3) Basophils (%) (Auto) 0 % (0-3) Neutrophils # (Auto) 34.9 x10^3/uL (1.8-7.7) Lymphocytes # (Auto) 0.7 x10^3/uL (1.0-4.8) Monocytes # (Auto) 0.4 x10^3/uL (0.0-1.1) Eosinophils # (Auto) 0.1 x10^3/uL (0.0-0.7) Basophils # (Auto) 0.1 x10^3/uL (0.0-0.2) Sodium Level 129 mmol/L (136-145) Potassium Level 4.4 mmol/L (3.5-5.1) Chloride Level 90 mmol/L (98-107) Carbon Dioxide Level 26 mmol/L (21-32) Anion Gap 13 (6-14) Blood Urea Nitrogen 68 mg/dL (8-26) Creatinine 2.9 mg/dL (0.7-1.3) Estimated GFR (Cockcroft-Gault) 25.0 Glucose Level 197 mg/dL (70-99) Calcium Level 6.9 mg/dL (8.5-10.1) Magnesium Level 1.8 mg/dL (1.8-2.4) O2 Saturation 99 % (92-99) Arterial Blood pH 7.51 (7.35-7.45) Arterial Blood pCO2 at Patient Temp 27 mmHg (35-46) Arterial Blood pO2 at Patient Temp 201 mmHg (65-108) Arterial Blood HCO3 21 mmol/L (21-28) Arterial Blood Base Excess -2 mmol/L (-3-3) FiO2 60%+7 Microbiology 11/30/19 Blood Culture - Preliminary, Resulted NO GROWTH AFTER 1 DAY Medications Current Medications Etomidate (Amidate) 20 mg STK-MED ONCE IV ; Start 11/29/19 at 07:37; Stop 11/29/19 at 07:37; Status DC Succinylcholine Chloride (Anectine) 200 mg STK-MED ONCE .ROUTE ; Start 11/29/19 at 07:38; Stop 11/29/19 at 07:38; Status DC Propofol 50 ml @ As Directed STK-MED ONCE IV ; Start 11/29/19 at 07:39; Stop 11/29/19 at 07:39; Status DC Piperacillin Sod/ Tazobactam Sod 3.375 gm/Sodium Chloride 50 ml @ 100 mls/hr 1X ONCE IV Last administered on 11/29/19at 08:29; Start 11/29/19 at 07:45; Stop 11/29/19 at 08:14; Status DC Propofol 50 ml @ As Directed STK-MED ONCE IV ; Start 11/29/19 at 08:21; Stop 11/29/19 at 08:21; Status DC Sodium Chloride 1,000 ml @ 1,000 mls/hr 1X ONCE IV Last administered on 11/29/19at 08:32; Start 11/29/19 at 07:30; Stop 11/29/19 at 08:30; Status DC Etomidate (Amidate) 20 mg 1X ONCE IV Last administered on 11/29/19at 08:35; Start 11/29/19 at 07:25; Stop 11/29/19 at 08:30; Status DC Succinylcholine Chloride (Anectine) 100 mg 1X ONCE IV Last administered on 11/29/19at 08:31; Start 11/29/19 at 07:25; Stop 11/29/19 at 08:30; Status DC Propofol (Diprivan) 500 mg 1X ONCE IV Last administered on 11/29/19at 08:33; Start 11/29/19 at 08:45; Stop 11/29/19 at 08:46; Status DC Sodium Chloride 1,000 ml @ 1,000 mls/hr 1X ONCE IV Last administered on 11/29/19at 09:09; Start 11/29/19 at 09:00; Stop 11/29/19 at 09:59; Status DC Propofol (Diprivan) 500 mg 1X ONCE IV Last administered on 11/29/19at 09:30; Start 11/29/19 at 09:30; Stop 11/29/19 at 09:31; Status DC Propofol (Diprivan) 200 mg TITRATE PRN IV SEDATION Last administered on 11/29/19at 09:45; Start 11/29/19 at 09:45; Stop 11/29/19 at 09:47; Status DC Propofol 50 ml @ 0.975 mls/ hr 1X ONCE IV Last administered on 11/29/19at 09:50; Start 11/29/19 at 10:00; Stop 11/29/19 at 10:01; Status DC Vancomycin HCl (Vanco Per Pharmacy) 1 each PRN DAILY PRN MC SEE COMMENTS Last administered on 11/29/19at 15:47; Start 11/29/19 at 10:15; Stop 11/30/19 at 10:42; Status DC Ondansetron HCl (Zofran) 4 mg PRN Q8HRS PRN IV NAUSEA/VOMITING; Start 11/29/19 at 10:15; Stop 11/30/19 at 10:14; Status DC Sodium Chloride 1,000 ml @ 125 mls/hr Q8H IV ; Start 11/29/19 at 10:15; Stop 11/29/19 at 10:54; Status DC Vancomycin HCl 1.5 gm/Sodium Chloride 500 ml @ 250 mls/hr 1X ONCE IV Last administered on 11/29/19at 11:23; Start 11/29/19 at 10:45; Stop 11/29/19 at 12:44; Status DC Acetaminophen (Tylenol) 650 mg Q6HRS PRN PEG MILD PAIN / TEMP > 100.3'F; Start 11/29/19 at 10:30 Sodium Chloride 1,000 ml @ 75 mls/hr CONT PRN IV .; Start 11/29/19 at 10:30; Stop 11/30/19 at 00:15; Status DC Allopurinol (Zyloprim) 100 mg DAILY PEG Last administered on 12/02/19at 08:51; Start 11/30/19 at 09:00 Amiodarone HCl (Cordarone) 200 mg DAILY PEG Last administered on 12/02/19at 08:50; Start 11/30/19 at 09:00 Aspirin (Rosemary Aspirin) 81 mg DAILY PEG ; Start 11/30/19 at 09:00; Stop 11/30/19 at 08:25; Status DC Atorvastatin Calcium (Lipitor) 40 mg QHS PEG Last administered on 12/01/19at 21:01; Start 11/29/19 at 21:00 Metoprolol Tartrate (Lopressor) 50 mg BID PO Last administered on 11/29/19at 20:05; Start 11/29/19 at 21:00 Scopolamine (Transderm-Scop) 1 patch Q3DAYS TD Last administered on 12/02/19at 08:51; Start 11/29/19 at 14:00 Vancomycin HCl (Vancomycin Oral Solution) 125 mg BID PEG Last administered on 12/02/19at 08:51; Start 11/29/19 at 21:00 Famotidine (Pepcid) 20 mg DAILY PEG ; Start 11/30/19 at 09:00; Stop 11/30/19 at 03:05; Status DC Heparin Sodium (Porcine) (Heparin Sodium) 5,000 unit BID SQ Last administered on 11/30/19at 08:21; Start 11/29/19 at 21:00; Stop 11/30/19 at 10:39; Status DC Piperacillin Sod/ Tazobactam Sod 3.375 gm/Sodium Chloride 50 ml @ 100 mls/hr Q6HRS IV Last administered on 11/30/19at 05:33; Start 11/29/19 at 18:00; Stop 11/30/19 at 10:39; Status DC Midazolam HCl 100 mg/Sodium Chloride 80 ml @ 0 mls/hr 1X ONCE IV Last administered on 11/29/19at 12:13; Start 11/29/19 at 12:00; Stop 11/29/19 at 12:01; Status DC Norepinephrine Bitartrate 8 mg/ Dextrose 258 ml @ 12.578 mls/ hr CONT PRN IV PER PROTOCOL Last administered on 11/29/19at 13:50; Start 11/29/19 at 13:00; Stop 11/29/19 at 16:46; Status DC Vasopressin 20 unit/Dextrose 101 ml @ 12 mls/hr CONT PRN IV SEE I/O RECORD Last administered on 12/02/19at 04:16; Start 11/29/19 at 15:15 Vancomycin HCl 1 gm/Sodium Chloride 250 ml @ 250 mls/hr Q24H IV ; Start 11/30/19 at 11:00; Stop 11/30/19 at 10:39; Status DC Vancomycin HCl (Vancomycin Trough Level) 1 each 1X ONCE MC ; Start 12/01/19 at 10:30; Stop 12/01/19 at 10:31; Status Cancel Fentanyl Citrate 30 ml @ 0 mls/hr CONT PRN IV SEE PROTOCOL; Start 11/29/19 at 1 6:45 Midazolam HCl 100 ml @ 0 mls/hr CONT PRN IV SEE PROTOCOL Last administered on 11/30/19at 09:42; Start 11/29/19 at 16:45 Norepinephrine Bitartrate 32 mg/ Dextrose 250 ml @ 3.047 mls/ hr CONT PRN IV PER PROTOCOL Last administered on 12/01/19at 21:03; Start 11/29/19 at 17:00 Sodium Chloride 1,000 ml @ 125 mls/hr 1X PRN PRN IV SEE COMMENTS; Start 11/30/19 at 00:15 Pantoprazole Sodium (PROTONIX VIAL for IV PUSH) 40 mg DAILYAC IVP ; Start 11/30/19 at 07:30; Stop 11/30/19 at 07:28; Status DC Sodium Chloride 500 ml @ 500 mls/hr 1X ONCE IV Last administered on 11/30/19at 03:30; Start 11/30/19 at 03:30; Stop 11/30/19 at 04:29; Status DC Linezolid/Dextrose 300 ml @ 300 mls/hr Q12HR IV Last administered on 12/02/19at 10:02; Start 11/30/19 at 11:00 Albumin Human 500 ml @ 125 mls/hr 1X ONCE IV Last administered on 11/30/19at 08:18; Start 11/30/19 at 07:00; Stop 11/30/19 at 10:59; Status DC Sodium Bicarbonate 150 meq/Dextrose 1,150 ml @ 75 mls/hr [id number] IV Last administered on 12/01/19at 21:02; Start 11/30/19 at 07:00 Pantoprazole Sodium 80 mg/ Sodium Chloride 100 ml @ 10 mls/hr Q10H IV Last administered on 12/02/19at 04:16; Start 11/30/19 at 07:30 Pantoprazole Sodium (PROTONIX VIAL for IV PUSH) 80 mg 1X ONCE IVP Last administered on 11/30/19at 08:19; Start 11/30/19 at 07:30; Stop 11/30/19 at 07:31; Status DC Metoclopramide HCl (Reglan Vial) 10 mg 1X ONCE IVP Last administered on 11/30/19at 08:20; Start 11/30/19 at 07:30; Stop 11/30/19 at 07:40; Status DC Aspirin (Aspirin Chewable) 81 mg [id number] PO Last administered on 12/01/19at 09:06; Start 11/30/19 at 08:30 Piperacillin Sod/ Tazobactam Sod 3.375 gm/Sodium Chloride 50 ml @ 100 mls/hr Q8HRS IV ; Start 11/30/19 at 14:00; Stop 11/30/19 at 10:44; Status DC Piperacillin Sod/ Tazobactam Sod 2.25 gm/Sodium Chloride 50 ml @ 100 mls/hr Q6HRS IV ; Start 11/30/19 at 12:00; Stop 11/30/19 at 12:36; Status DC Meropenem 500 mg/ Sodium Chloride 50 ml @ 100 mls/hr Q8HRS IV Last administered on 12/01/19at 05:35; Start 11/30/19 at 14:00; Stop 12/01/19 at 10:47; Status DC Micafungin Sodium 100 mg/Dextrose 100 ml @ 100 mls/hr Q24H IV Last administered on 12/01/19at 15:12; Start 11/30/19 at 13:00 Daptomycin 340 mg/ Sodium Chloride 50 ml @ 100 mls/hr ONCE ONCE IV Last administered on 11/30/19at 14:11; Start 11/30/19 at 13:30; Stop 11/30/19 at 13:59; Status DC Meropenem 500 mg/ Sodium Chloride 50 ml @ 100 mls/hr Q12HR IV Last administered on 12/02/19at 08:48; Start 12/01/19 at 21:00 Daptomycin 390 mg/ Sodium Chloride 50 ml @ 100 mls/hr Q24H IV Last administered on 12/02/19at 09:54; Start 12/02/19 at 09:00 Active Scripts Active Reported Transderm-Scop (Scopolamine) 1 Each Patch.td72 1 Patch TP Q3DAYS Probiotic (Lactobacillus Combo No.11) 1 Each Cap.sprink 1 Each PO DAILY Metoprolol Tartrate 50 Mg Tablet 1 Tab PEG BID Lipitor (Atorvastatin Calcium) 40 Mg Tablet 1 Tab PEG QHS Calcium 500 + Vit D 200 Caplet (Calcium Carbonate/Vitamin D3) 1 Each Tablet 1 Tab PEG DAILY 30 Days Aspirin 81 Mg Tab.chew 1 Tab PEG DAILY Amiodarone Hcl 200 Mg Tablet 1 Tab PEG DAILY Allopurinol 100 Mg Tablet 1 Tab PEG DAILY Acetaminophen Oral Liquid (Acetaminophen) 650 Mg/20.3 Ml Solution 650 Mg PO PRN Q4HRS PRN Vitals/I & O Vital Sign - Last 24 Hours 12/01/19 12/01/19 12/01/19 12/01/19 10:30 10:45 11:00 11:09 Pulse 106 106 106 Resp 24 24 24 B/P (MAP) 87/44 (58) 94/48 (63) 98/53 (68) Pulse Ox 100 100 100 100 O2 Delivery Ventilator Ventilator Ventilator Ventilator 12/01/19 12/01/19 12/01/19 12/01/19 12:00 12:00 12:15 12:30 Temp 98.1 98.1 Pulse 106 106 106 Resp 24 24 24 B/P (MAP) 96/51 (66) 102/49 (66) 93/45 (61) Pulse Ox 100 100 100 O2 Delivery Ventilator Mechanical Ventilator Ventilator Ventilator 12/01/19 12/01/19 12/01/19 12/01/19 12:45 13:00 13:15 13:30 Pulse 106 106 106 104 Resp 24 24 24 24 B/P (MAP) 102/42 (62) 98/53 (68) 108/50 (69) 108/60 (76) Pulse Ox 100 100 100 100 O2 Delivery Ventilator Ventilator Ventilator Ventilator 12/01/19 12/01/19 12/01/19 12/01/19 13:45 14:00 14:15 14:30 Pulse 104 104 104 104 Resp 24 24 24 24 B/P (MAP) 103/51 (68) 101/53 (69) 102/52 (69) 105/58 (74) Pulse Ox 100 100 100 100 O2 Delivery Ventilator Ventilator Ventilator Ventilator 12/01/19 12/01/19 12/01/19 12/01/19 15:00 15:30 16:00 16:00 Temp 99.0 99.0 Pulse 104 104 102 Resp 24 B/P (MAP) 105/58 (74) 105/58 (74) 105/58 (74) Pulse Ox 100 100 100 O2 Delivery Ventilator Ventilator Ventilator Mechanical Ventilator 12/01/19 12/01/19 12/01/19 12/01/19 16:30 16:36 17:00 17:30 Pulse 102 100 100 Resp 24 B/P (MAP) 102/50 (67) 113/47 (69) 113/47 (69) Pulse Ox 100 100 100 100 O2 Delivery Ventilator Ventilator Ventilator Ventilator 12/01/19 12/01/19 12/01/19 12/01/19 18:00 18:30 19:00 20:00 Temp 99.4 99.4 Pulse 100 100 98 100 Resp 24 24 B/P (MAP) 105/58 (74) 105/58 (74) 108/55 (72) 105/45 (65) Pulse Ox 100 100 100 100 O2 Delivery Ventilator Ventilator Ventilator Ventilator 12/01/19 12/01/19 12/01/19 12/01/19 20:00 20:01 21:00 21:00 Pulse 100 100 Resp 24 B/P (MAP) 109/47 109/47 (67) Pulse Ox 100 100 O2 Delivery Mechanical Ventilator Ventilator Ventilator 12/01/19 12/01/19 12/01/19 12/01/19 21:15 21:45 22:00 23:00 Pulse 100 100 100 99 Resp 24 24 B/P (MAP) 91/42 (58) 110/45 (66) 104/46 (65) 94/46 (62) Pulse Ox 100 100 100 100 O2 Delivery Ventilator Ventilator Ventilator Ventilator 12/01/19 12/02/19 12/02/19 12/02/19 23:50 00:00 00:00 01:00 Temp 99.5 99.5 Pulse 100 100 Resp 24 24 B/P (MAP) 93/49 (64) 103/50 (67) Pulse Ox 100 100 100 O2 Delivery Ventilator Ventilator Mechanical Ventilator Ventilator 12/02/19 12/02/19 12/02/19 12/02/19 02:00 03:00 03:38 04:00 Temp 99.8 99.8 Pulse 100 100 99 Resp 24 24 24 B/P (MAP) 95/53 (67) 87/48 (61) 94/49 (64) Pulse Ox 100 100 100 100 O2 Delivery Ventilator Ventilator Ventilator Ventilator 12/02/19 12/02/19 12/02/19 12/02/19 04:00 05:00 06:00 07:00 Pulse 100 97 96 Resp 24 24 24 B/P (MAP) 98/44 (62) 100/47 (64) 91/52 (65) Pulse Ox 100 100 100 O2 Delivery Mechanical Ventilator Ventilator Ventilator Ventilator 12/02/19 12/02/19 07:30 08:50 Pulse 108 B/P (MAP) 100/54 Pulse Ox 100 O2 Delivery Ventilator Intake and Output 12/01/19 12/01/19 12/02/19 15:00 23:00 07:00 Intake Total 155 ml 2300 ml 1019 ml Output Total 25 ml 328 ml 10 ml Balance 130 ml 1972 ml 1009 ml Justifications for Admission Other Justification Nutrition Consultation Dietary Evaluation: Recommendations by RD: Dietary education by RD, Increase Calorie Intake Comments: REC initation of nutrition support within 24 - 48 hrs of intubation REC TFs if pt appropriate for enteral nutriton (discussed w/RN, monitoring OGT output); if able to feed enterally, receommend TFs per following: VitalAF@20 ml/hr, increase 10 ml q8 hrs as tolerated to goal rate 40 ml/hr w/125 ml water flushes q4 hrs or flushes per MD If unable to feed enterally, REC TPN (pt has central line) per following dextrose, 70g AA, 20g lipids Expected Outcomes/Goals: Initiation of nutrition support within 24 - 48 hrs of intubation Malnutrition Findings: Body Fat Depletion (Non Severe: Mild Depletion Weight Status: Appropriate PHILLY FONSECA MD Dec 02, 2019 10:32
--- NOTE | 2019-12-02 11:31 | PDOC ---
PULMONARY PROGRESS NOTES DATE: 12/02/19 TIME: 11:29 Subjective remains intubated/sedated on high doses of two pressors not making urine SERAFIN Vitals Vital Signs Date Time Temp Pulse Resp B/P (MAP) Pulse Ox O2 Delivery O2 Flow Rate FiO2 12/02/19 11:11 98.1 100 20 125/61 98.1 12/02/19 08:00 Mechanical Ventilator 12/02/19 07:30 100 Lungs: Clear Cardiovascular: S1 Abdomen: Soft, Non-tender Extremities: Other (1+edema) Labs Laboratory Tests Test 12/01/19 06:45 12/01/19 08:55 12/02/19 06:30 12/02/19 08:00 White Blood Count 33.9 x10^3/uL (4.0-11.0) 36.2 x10^3/uL (4.0-11.0) Red Blood Count 2.34 x10^6/uL (4.30-5.70) 2.03 x10^6/uL (4.30-5.70) Hemoglobin 7.2 g/dL (13.0-17.5) 6.2 g/dL (13.0-17.5) Hematocrit 22.1 % (39.0-53.0) 18.7 % (39.0-53.0) Mean Corpuscular Volume 95 fL (79-100) 92 fL (79-100) Mean Corpuscular Hemoglobin 31 pg (25-35) 31 pg (25-35) Mean Corpuscular Hemoglobin Concent 33 g/dL (31-37) 33 g/dL (31-37) Red Cell Distribution Width 19.1 % (11.5-14.5) 19.0 % (11.5-14.5) Platelet Count 225 x10^3/uL (140-400) 188 x10^3/uL (140-400) Neutrophils (%) (Auto) 96 % (31-73) 96 % (31-73) Lymphocytes (%) (Auto) 2 % (24-48) 2 % (24-48) Monocytes (%) (Auto) 3 % (0-9) 1 % (0-9) Eosinophils (%) (Auto) 0 % (0-3) 0 % (0-3) Basophils (%) (Auto) 0 % (0-3) 0 % (0-3) Neutrophils # (Auto) 32.4 x10^3/uL (1.8-7.7) 34.9 x10^3/uL (1.8-7.7) Lymphocytes # (Auto) 0.5 x10^3/uL (1.0-4.8) 0.7 x10^3/uL (1.0-4.8) Monocytes # (Auto) 1.0 x10^3/uL (0.0-1.1) 0.4 x10^3/uL (0.0-1.1) Eosinophils # (Auto) 0.0 x10^3/uL (0.0-0.7) 0.1 x10^3/uL (0.0-0.7) Basophils # (Auto) 0.0 x10^3/uL (0.0-0.2) 0.1 x10^3/uL (0.0-0.2) Sodium Level 133 mmol/L (136-145) 129 mmol/L (136-145) Potassium Level 5.2 mmol/L (3.5-5.1) 4.4 mmol/L (3.5-5.1) Chloride Level 96 mmol/L (98-107) 90 mmol/L (98-107) Carbon Dioxide Level 22 mmol/L (21-32) 26 mmol/L (21-32) Anion Gap 15 (6-14) 13 (6-14) Blood Urea Nitrogen 61 mg/dL (8-26) 68 mg/dL (8-26) Creatinine 2.3 mg/dL (0.7-1.3) 2.9 mg/dL (0.7-1.3) Estimated GFR (Cockcroft-Gault) 32.7 25.0 Glucose Level 149 mg/dL (70-99) 197 mg/dL (70-99) Calcium Level 7.3 mg/dL (8.5-10.1) 6.9 mg/dL (8.5-10.1) Phosphorus Level 5.7 mg/dL (2.6-4.7) Creatine Kinase 294 U/L (39-308) Albumin 1.6 g/dL (3.4-5.0) O2 Saturation 96 % (92-99) 99 % (92-99) Arterial Blood pH 7.40 (7.35-7.45) 7.51 (7.35-7.45) Arterial Blood pCO2 at Patient Temp 31 mmHg (35-46) 27 mmHg (35-46) Arterial Blood pO2 at Patient Temp 83 mmHg (65-108) 201 mmHg (65-108) Arterial Blood HCO3 19 mmol/L (21-28) 21 mmol/L (21-28) Arterial Blood Base Excess -6 mmol/L (-3-3) -2 mmol/L (-3-3) FiO2 60 60%+7 Magnesium Level 1.8 mg/dL (1.8-2.4) Laboratory Tests Test 12/02/19 06:30 12/02/19 08:00 White Blood Count 36.2 x10^3/uL (4.0-11.0) Red Blood Count 2.03 x10^6/uL (4.30-5.70) Hemoglobin 6.2 g/dL (13.0-17.5) Hematocrit 18.7 % (39.0-53.0) Mean Corpuscular Volume 92 fL (79-100) Mean Corpuscular Hemoglobin 31 pg (25-35) Mean Corpuscular Hemoglobin Concent 33 g/dL (31-37) Red Cell Distribution Width 19.0 % (11.5-14.5) Platelet Count 188 x10^3/uL (140-400) Neutrophils (%) (Auto) 96 % (31-73) Lymphocytes (%) (Auto) 2 % (24-48) Monocytes (%) (Auto) 1 % (0-9) Eosinophils (%) (Auto) 0 % (0-3) Basophils (%) (Auto) 0 % (0-3) Neutrophils # (Auto) 34.9 x10^3/uL (1.8-7.7) Lymphocytes # (Auto) 0.7 x10^3/uL (1.0-4.8) Monocytes # (Auto) 0.4 x10^3/uL (0.0-1.1) Eosinophils # (Auto) 0.1 x10^3/uL (0.0-0.7) Basophils # (Auto) 0.1 x10^3/uL (0.0-0.2) Sodium Level 129 mmol/L (136-145) Potassium Level 4.4 mmol/L (3.5-5.1) Chloride Level 90 mmol/L (98-107) Carbon Dioxide Level 26 mmol/L (21-32) Anion Gap 13 (6-14) Blood Urea Nitrogen 68 mg/dL (8-26) Creatinine 2.9 mg/dL (0.7-1.3) Estimated GFR (Cockcroft-Gault) 25.0 Glucose Level 197 mg/dL (70-99) Calcium Level 6.9 mg/dL (8.5-10.1) Magnesium Level 1.8 mg/dL (1.8-2.4) O2 Saturation 99 % (92-99) Arterial Blood pH 7.51 (7.35-7.45) Arterial Blood pCO2 at Patient Temp 27 mmHg (35-46) Arterial Blood pO2 at Patient Temp 201 mmHg (65-108) Arterial Blood HCO3 21 mmol/L (21-28) Arterial Blood Base Excess -2 mmol/L (-3-3) FiO2 60%+7 Medications Active Scripts Medications Dose Route/Sig Max Daily Dose Days Date Category Transderm-Scop (Scopolamine) 1 Each Patch.td72 1 Patch TP Q3DAYS 11/29/19 Reported Probiotic (Lactobacillus Combo No.11) 1 Each Cap.sprink 1 Each PO DAILY 11/29/19 Reported Metoprolol Tartrate 50 Mg Tablet 1 Tab PEG BID 11/29/19 Reported Lipitor (Atorvastatin Calcium) 40 Mg Tablet 1 Tab PEG QHS 11/29/19 Reported Calcium 500 + Vit D 200 Caplet (Calcium Carbonate/Vitamin D3) 1 Each Tablet 1 Tab PEG DAILY 30 11/29/19 Reported Aspirin 81 Mg Tab.chew 1 Tab PEG DAILY 11/29/19 Reported Amiodarone Hcl 200 Mg Tablet 1 Tab PEG DAILY 11/29/19 Reported Allopurinol 100 Mg Tablet 1 Tab PEG DAILY 11/29/19 Reported Acetaminophen Oral Liquid (Acetaminophen) 650 Mg/20.3 Ml Solution 650 Mg PO PRN Q4HRS PRN 11/29/[address] chest IMPRESSION: 1. Multifocal reticulonodular densities in the lungs bilaterally with more confluent consolidation in the left lower lobe consistent with lobar pneumonia. No evidence of necrotizing pneumonia or lung abscess. 2. No definite acute findings in the abdomen or pelvis with equivocal wall thickening in the ascending colon that is recommended for elective clinical and imaging follow-up when clinically feasible. Electronically signed by: Andrea Farias MD (11/30/2019 4:30 PM) [id number] Impression . 1. Acute hypoxic and hypercapnic respiratory failure, secondary to combination of pneumonia and septic shock 2. Marked leukocytosis related to pneumonia. Need to rule out all other sources of infection as well. 3. 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 Status post percutaneous endoscopic gastrostomy tube placement. 4. Abnormal chest x-ray consistent with pneumonia. 5. History of paroxysmal atrial fibrillation. 6. Severe protein-calorie malnutrition. 7. worsening SERAFIN. ., now no sig urine output 8. Mildly increased troponin level. 9. shock/septic 10. ABNORMAL CT CHEST C/W DIFFUSE PNEUMONIA/LLL CONSOLIDATION Plan . 1. Discussed with the respiratory therapist and RN 2. We will continue with present assist control mode and make changes based on the ABGs. reduce rate 3. Broad-spectrum antibiotics. 4. Continue to monitor blood pressure closely./on 2 pressors 5. Sedation. 6. d/w daughter in detail 11/30. Multiple family members to arrive later today from all over [place] and make decision about advance directives 7. DVT prophylaxis with subcutaneous heparin. 8. Stress ulcer prophylaxis. 9. watch Hb. Tx today 10. We will follow along with you. Discussed with RN and RT 11. will need to make a decision reg CRRT CRITICAL CARE TIME: 30 minutes. IWONA SMILEY MD Dec 02, 2019 11:31
--- NOTE | 2019-12-02 11:48 | PDOC ---
Date of Service: DATE: 12/02/19 TIME: 11:44 Objective: Objective: D/w nurse - family meeting today, increased residuals so tube feeds held, really gross stool this morning and overnight - now w/ rectal tube. Vital Signs: Vital Signs Date Time Temp Pulse Resp B/P (MAP) Pulse Ox O2 Delivery O2 Flow Rate FiO2 12/02/19 11:11 98.1 100 20 125/61 98.1 12/02/19 08:00 Mechanical Ventilator 12/02/19 07:30 100 Labs: Laboratory Tests Test 12/02/19 06:30 12/02/19 08:00 White Blood Count 36.2 x10^3/uL Red Blood Count 2.03 x10^6/uL Hemoglobin 6.2 g/dL Hematocrit 18.7 % Mean Corpuscular Volume 92 fL Mean Corpuscular Hemoglobin 31 pg Mean Corpuscular Hemoglobin Concent 33 g/dL Red Cell Distribution Width 19.0 % Platelet Count 188 x10^3/uL Neutrophils (%) (Auto) 96 % Lymphocytes (%) (Auto) 2 % Monocytes (%) (Auto) 1 % Eosinophils (%) (Auto) 0 % Basophils (%) (Auto) 0 % Neutrophils # (Auto) 34.9 x10^3/uL Lymphocytes # (Auto) 0.7 x10^3/uL Monocytes # (Auto) 0.4 x10^3/uL Eosinophils # (Auto) 0.1 x10^3/uL Basophils # (Auto) 0.1 x10^3/uL Sodium Level 129 mmol/L Potassium Level 4.4 mmol/L Chloride Level 90 mmol/L Carbon Dioxide Level 26 mmol/L Anion Gap 13 Blood Urea Nitrogen 68 mg/dL Creatinine 2.9 mg/dL Estimated GFR (Cockcroft-Gault) 25.0 Glucose Level 197 mg/dL Calcium Level 6.9 mg/dL Magnesium Level 1.8 mg/dL O2 Saturation 99 % Arterial Blood pH 7.51 Arterial Blood pCO2 at Patient Temp 27 mmHg Arterial Blood pO2 at Patient Temp 201 mmHg Arterial Blood HCO3 21 mmol/L Arterial Blood Base Excess -2 mmol/L FiO2 60%+7 BLOOD CULTURE Final GRAM POSITIVE COCCI 2 SETS DRAWN ON 11/28, 1 SET DRAWN ON 11/29, 1 OF 2 POSITIVE PE: GEN: NAD LUNGS: CTAB HEART: RRR ABD: NABS, S/ND/NT NEURO/PSYCH: A & O 3 A/P: Resp failure, SERAFIN, GPC bacteremia, anemia -- Await family meeting, check stool studies, continue PPI. Agree w/ transfusion. Justicifation of Admission Dx: Justifications for Admission: Justification of Admission Dx: Yes Sepsis: Altered Mental Status NANY LOPEZ Dec 02, 2019 11:48
[2019-12-02] MEDS: MICAFUNGIN 100 MG in IV DEXTROSE 5% 100ML 100 ML IV SCH (13:03)
[2019-12-02 14:52] LABS: HEMATOCRIT 23.1 % (39.0-53.0); HEMOGLOBIN 7.8 g/dL (13.0-17.5)
--- NOTE | 2019-12-02 15:05 | NUR ---
Wound Care Wound Type/Assessment: patient has bilateral buttock/coccyx stage 2 pressure ulcer with incontinence associated dermatitis, the area was assessed, patient has multiple small open areas, the areas were cleaned and redressed with A & D ointment at this time. Treatment Recommendations/Plan: Recommendations of A & D ointment to bilateral buttocks and coccyx area. patient has red but blanchable heels- recommendations of Aquacel foams, change every 3-4 days. Offloading surface/device: patient currently on an ICU bed at this time. patient needs to be turning every 2 hours, patient turned to the left side at this time. continue to float the heels on pillows to prevent any pressure ulcers. Discharge Recommendations for dressings: Recommendations of continuing with the dressing recommendations, notified ANGELY Moreno about the POC and wound care will continue to f/u for changes. Addendum: 12/02/19 at 2025 by ESTRELLITA SEAY RN Per patient family and physician orders. Morphine 10 mg given. Patient extubated [id number]. Dc'd OG and all IV drips. 02 at 3 l placed. Patient is resting comfortably. Family at BS.
[2019-12-02] MEDS ORDERED: MULTIVITAMINS,THERAPEUTIC 5 ML ORAL LIQUID. PEG SCH (16:00)
[2019-12-02] MEDS: SODIUM BICARBONATE VIAL 150 MEQ in IV DEXTROSE 5% 1,000 ML IV SCH (16:24)
[2019-12-02] MEDS ORDERED: MORPHINE SULFATE 10 MG/ML VIAL. IM ONE (17:00)
[2019-12-02] MEDS ORDERED: MORPHINE SULFATE 2 MG/ML VIAL. IV PRN (17:00)
[2019-12-02] MEDS: MORPHINE SULFATE 4 MG/ML VIAL. IV PRN ×2 (21:53→23:43)
[2019-12-03] MEDS: MORPHINE SULFATE 4 MG/ML VIAL. IV PRN ×3 (03:37→12:59)
[2019-12-03 04:00] VITALS: BP 99/41
[2019-12-03 07:36] VITALS: BP 84/41
--- NOTE | 2019-12-03 08:28 | PDOC ---
Infectious Disease Note Subjective: Subjective Patient transitioned to comfort measures Vital Signs: Vital Signs Vital Signs Date Time Temp Pulse Resp B/P (MAP) Pulse Ox O2 Delivery O2 Flow Rate FiO2 12/03/19 07:38 Nasal Cannula 5.0 12/03/19 07:36 104 25 84/41 (55) 87 12/03/19 04:00 98.7 98.7 Physical Exam: PHYSICAL EXAM GENERAL: Intubated.unresponsive HEENT: NG tube present. Eyes closed. NECK: Supple. IJ present LUNGS: Decreased breath sounds. HEART: S1, S2 irregular. ABDOMEN: Soft. Bowel sounds present. Gastrostomy tube in place. Patel in place EXTREMITIES: No edema, no cyanosis. DERMATOLOGIC: Warm, dry. No generalized rash, dry skin. NEUROLOGIC: On ventilator. Unresponsive Medications: Inpatient Meds: Current Medications Medications (Trade) Dose Ordered Sig/Jaleesa Start Time Stop Time Status Last Admin Dose Admin Acetaminophen (Tylenol) 650 mg Q6HRS PRN 11/29/19 10:30 12/02/19 17:02 DC Albumin Human 500 ml @ 125 mls/hr 1X ONCE 11/30/19 07:00 11/30/19 10:59 DC 11/30/19 08:18 125 MLS/HR Allopurinol (Zyloprim) 100 mg DAILY 11/30/19 09:00 12/02/19 17:02 DC 12/02/19 08:51 100 MG Amiodarone HCl (Cordarone) 200 mg DAILY 11/30/19 09:00 12/02/19 17:02 DC 12/02/19 08:50 200 MG Aspirin (Aspirin Chewable) 81 mg [id number] 11/30/19 08:30 12/02/19 17:02 DC 12/01/19 09:06 81 MG Aspirin (Rosemary Aspirin) 81 mg DAILY 11/30/19 09:00 11/30/19 08:25 DC Atorvastatin Calcium (Lipitor) 40 mg QHS 11/29/19 21:00 12/02/19 17:02 DC 12/01/19 21:01 40 MG Daptomycin 340 mg/ Sodium Chloride 50 ml @ 100 mls/hr ONCE ONCE 11/30/19 13:30 11/30/19 13:59 DC 11/30/19 14:11 100 MLS/HR Daptomycin 390 mg/ Sodium Chloride 50 ml @ 100 mls/hr Q24H 12/02/19 09:00 12/02/19 17:02 DC 12/02/19 09:54 100 MLS/HR Etomidate (Amidate) 20 mg 1X ONCE 11/29/19 07:25 11/29/19 08:30 DC 11/29/19 08:35 20 MG Famotidine (Pepcid) 20 mg DAILY 11/30/19 09:00 11/30/19 03:05 DC Fentanyl Citrate 30 ml @ 0 mls/hr CONT PRN 11/29/19 16:45 12/02/19 17:02 DC Heparin Sodium (Porcine) (Heparin Sodium) 5,000 unit BID 11/29/19 21:00 11/30/19 10:39 DC 11/30/19 08:21 5,000 UNIT Linezolid/Dextrose 300 ml @ 300 mls/hr Q12HR 11/30/19 11:00 12/02/19 17:02 DC 12/02/19 10:02 300 MLS/HR Lorazepam (Ativan Inj) 4 mg PRN Q15MIN PRN 12/02/19 17:00 Meropenem 500 mg/ Sodium Chloride 50 ml @ 100 mls/hr Q12HR 12/01/19 21:00 12/02/19 17:02 DC 12/02/19 08:48 100 MLS/HR Metoclopramide HCl (Reglan Vial) 10 mg 1X ONCE 11/30/19 07:30 11/30/19 07:40 DC 11/30/19 08:20 10 MG Metoprolol Tartrate (Lopressor) 50 mg BID 11/29/19 21:00 12/02/19 17:02 DC 11/29/19 20:05 50 MG Micafungin Sodium 100 mg/Dextrose 100 ml @ 100 mls/hr Q24H 11/30/19 13:00 12/02/19 17:02 DC 12/02/19 13:03 100 MLS/HR Midazolam HCl 100 ml @ 0 mls/hr CONT PRN 11/29/19 16:45 12/02/19 17:02 DC 11/30/19 09:42 8 MLS/HR Midazolam HCl 100 mg/Sodium Chloride 80 ml @ 0 mls/hr 1X ONCE 11/29/19 12:00 11/29/19 12:01 DC 11/29/19 12:13 5 MLS/HR Morphine Sulfate (Morphine Sulfate) 10 mg 1X ONCE 12/02/19 17:00 12/02/19 17:02 DC 12/02/19 17:00 10 MG Multivitamins/ Minerals Therapeutic (Centrum Multivit-Mineral Liq) 5 ml DAILY 12/02/19 16:00 12/02/19 17:02 DC Norepinephrine Bitartrate 32 mg/ Dextrose 250 ml @ 3.047 mls/ hr CONT PRN 11/29/19 17:00 12/02/19 17:02 DC 12/01/19 21:03 7.313 MLS/HR Norepinephrine Bitartrate 8 mg/ Dextrose 258 ml @ 12.578 mls/ hr CONT PRN 11/29/19 13:00 11/29/19 16:46 DC 11/29/19 13:50 12.578 MLS/HR Ondansetron HCl (Zofran) 4 mg PRN Q8HRS PRN 11/29/19 10:15 11/30/19 10:14 DC Pantoprazole Sodium (PROTONIX VIAL for IV PUSH) 80 mg 1X ONCE 11/30/19 07:30 11/30/19 07:31 DC 11/30/19 08:19 80 MG Pantoprazole Sodium 80 mg/ Sodium Chloride 100 ml @ 10 mls/hr Q10H 11/30/19 07:30 12/02/19 17:02 DC 12/02/19 14:36 10 MLS/HR Piperacillin Sod/ Tazobactam Sod 2.25 gm/Sodium Chloride 50 ml @ 100 mls/hr Q6HRS 11/30/19 12:00 11/30/19 12:36 DC Piperacillin Sod/ Tazobactam Sod 3.375 gm/Sodium Chloride 50 ml @ 100 mls/hr Q8HRS 11/30/19 14:00 11/30/19 10:44 DC Propofol 50 ml @ 0.975 mls/ hr 1X ONCE 11/29/19 10:00 11/29/19 10:01 DC 11/29/19 09:50 9.8 MLS/HR Propofol (Diprivan) 200 mg TITRATE PRN 11/29/19 09:45 11/29/19 09:47 DC 11/29/19 09:45 200 MG Scopolamine (Transderm-Scop) 1 patch Q3DAYS 11/29/19 14:00 12/02/19 08:51 1 PATCH Sodium Bicarbonate 150 meq/Dextrose 1,150 ml @ 75 mls/hr [id number] 11/30/19 07:00 12/02/19 17:02 DC 12/02/19 16:24 75 MLS/HR Sodium Chloride 500 ml @ 500 mls/hr 1X ONCE 11/30/19 03:30 11/30/19 04:29 DC 11/30/19 03:30 500 MLS/HR Succinylcholine Chloride (Anectine) 100 mg 1X ONCE 11/29/19 07:25 11/29/19 08:30 DC 11/29/19 08:31 100 MG Vancomycin HCl (Vanco Per Pharmacy) 1 each PRN DAILY PRN 11/29/19 10:15 11/30/19 10:42 DC 11/29/19 15:47 1 EACH Vancomycin HCl (Vancomycin Trough Level) 1 each 1X ONCE 12/01/19 10:30 12/01/19 10:31 Cancel Vancomycin HCl (Vancomycin Oral Solution) 125 mg BID 11/29/19 21:00 12/02/19 17:02 DC 12/02/19 08:51 125 MG Vancomycin HCl 1.5 gm/Sodium Chloride 500 ml @ 250 mls/hr 1X ONCE 11/29/19 10:45 11/29/19 12:44 DC 11/29/19 11:23 250 MLS/HR Vancomycin HCl 1 gm/Sodium Chloride 250 ml @ 250 mls/hr Q24H 11/30/19 11:00 11/30/19 10:39 DC Vasopressin 20 unit/Dextrose 101 ml @ 12 mls/hr CONT PRN 11/29/19 15:15 12/02/19 17:02 DC 12/02/19 13:02 12 MLS/HR Labs: Lab Laboratory Tests Test 12/02/19 14:44 Hemoglobin 7.8 g/dL (13.0-17.5) Hematocrit 23.1 % (39.0-53.0) Mean Corpuscular Hemoglobin Concent 34 g/dL (31-37) Plan: Plan of Care Patient transitioned to comfort measures Discussed with nursing staff GIFTY DHILLON MD Dec 03, 2019 08:28
--- NOTE | 2019-12-03 09:49 | PDOC ---
PULMONARY PROGRESS NOTES DATE: 12/03/19 TIME: 09:48 Subjective ext 12/01, on 02 unresponsive, comfort care Vitals Vital Signs Date Time Temp Pulse Resp B/P (MAP) Pulse Ox O2 Delivery O2 Flow Rate FiO2 12/03/19 07:38 Nasal Cannula 5.0 12/03/19 07:36 104 25 84/41 (55) 87 12/03/19 04:00 98.7 98.7 General: Lethargic Lungs: Crackles Cardiovascular: S1 Abdomen: Soft, Non-tender Extremities: Other (1+edema) Skin: Warm Labs Laboratory Tests Test 12/02/19 06:30 12/02/19 08:00 12/02/19 14:44 White Blood Count 36.2 x10^3/uL (4.0-11.0) Red Blood Count 2.03 x10^6/uL (4.30-5.70) Hemoglobin 6.2 g/dL (13.0-17.5) 7.8 g/dL (13.0-17.5) Hematocrit 18.7 % (39.0-53.0) 23.1 % (39.0-53.0) Mean Corpuscular Volume 92 fL (79-100) Mean Corpuscular Hemoglobin 31 pg (25-35) Mean Corpuscular Hemoglobin Concent 33 g/dL (31-37) 34 g/dL (31-37) Red Cell Distribution Width 19.0 % (11.5-14.5) Platelet Count 188 x10^3/uL (140-400) Neutrophils (%) (Auto) 96 % (31-73) Lymphocytes (%) (Auto) 2 % (24-48) Monocytes (%) (Auto) 1 % (0-9) Eosinophils (%) (Auto) 0 % (0-3) Basophils (%) (Auto) 0 % (0-3) Neutrophils # (Auto) 34.9 x10^3/uL (1.8-7.7) Lymphocytes # (Auto) 0.7 x10^3/uL (1.0-4.8) Monocytes # (Auto) 0.4 x10^3/uL (0.0-1.1) Eosinophils # (Auto) 0.1 x10^3/uL (0.0-0.7) Basophils # (Auto) 0.1 x10^3/uL (0.0-0.2) Sodium Level 129 mmol/L (136-145) Potassium Level 4.4 mmol/L (3.5-5.1) Chloride Level 90 mmol/L (98-107) Carbon Dioxide Level 26 mmol/L (21-32) Anion Gap 13 (6-14) Blood Urea Nitrogen 68 mg/dL (8-26) Creatinine 2.9 mg/dL (0.7-1.3) Estimated GFR (Cockcroft-Gault) 25.0 Glucose Level 197 mg/dL (70-99) Calcium Level 6.9 mg/dL (8.5-10.1) Magnesium Level 1.8 mg/dL (1.8-2.4) O2 Saturation 99 % (92-99) Arterial Blood pH 7.51 (7.35-7.45) Arterial Blood pCO2 at Patient Temp 27 mmHg (35-46) Arterial Blood pO2 at Patient Temp 201 mmHg (65-108) Arterial Blood HCO3 21 mmol/L (21-28) Arterial Blood Base Excess -2 mmol/L (-3-3) FiO2 60%+7 Laboratory Tests Test 12/02/19 14:44 Hemoglobin 7.8 g/dL (13.0-17.5) Hematocrit 23.1 % (39.0-53.0) Mean Corpuscular Hemoglobin Concent 34 g/dL (31-37) Medications Active Scripts Medications Dose Route/Sig Max Daily Dose Days Date Category Transderm-Scop (Scopolamine) 1 Each Patch.td72 1 Patch TP Q3DAYS 11/29/19 Reported Probiotic (Lactobacillus Combo No.11) 1 Each Cap.sprink 1 Each PO DAILY 11/29/19 Reported Metoprolol Tartrate 50 Mg Tablet 1 Tab PEG BID 11/29/19 Reported Lipitor (Atorvastatin Calcium) 40 Mg Tablet 1 Tab PEG QHS 11/29/19 Reported Calcium 500 + Vit D 200 Caplet (Calcium Carbonate/Vitamin D3) 1 Each Tablet 1 Tab PEG DAILY 30 11/29/19 Reported Aspirin 81 Mg Tab.chew 1 Tab PEG DAILY 11/29/19 Reported Amiodarone Hcl 200 Mg Tablet 1 Tab PEG DAILY 11/29/19 Reported Allopurinol 100 Mg Tablet 1 Tab PEG DAILY 11/29/19 Reported Acetaminophen Oral Liquid (Acetaminophen) 650 Mg/20.3 Ml Solution 650 Mg PO PRN Q4HRS PRN 11/29/[address] chest IMPRESSION: 1. Multifocal reticulonodular densities in the lungs bilaterally with more confluent consolidation in the left lower lobe consistent with lobar pneumonia. No evidence of necrotizing pneumonia or lung abscess. 2. No definite acute findings in the abdomen or pelvis with equivocal wall thickening in the ascending colon that is recommended for elective clinical and imaging follow-up when clinically feasible. Electronically signed by: Andrea Farias MD (11/30/2019 4:30 PM) [id number] Impression . 1. Acute hypoxic and hypercapnic respiratory failure, secondary to combination of pneumonia and septic shock 2. Marked leukocytosis related to pneumonia. Need to rule out all other sources of infection as well. 3. 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 Status post percutaneous endoscopic gastrostomy tube placement. 4. Abnormal chest x-ray consistent with pneumonia. 5. History of paroxysmal atrial fibrillation. 6. Severe protein-calorie malnutrition. 7. worsening SERAFIN. ., now no sig urine output 8. Mildly increased troponin level. 9. shock/septic 10. ABNORMAL CT CHEST C/W DIFFUSE PNEUMONIA/LLL CONSOLIDATION Plan . 1. Discussed with the respiratory therapist and RN 2. 02 3. off Broad-spectrum antibiotics. 4. keep comfortable Ativan morphine MALIK NEVAREZ MD Dec 03, 2019 09:49
--- NOTE | 2019-12-03 11:00 | PDOC ---
PROGRESS NOTES Date of Service DATE: 12/03/19 TIME: 10:58 Subjective Subjective I spoke with family yesterday about his poor prognosis and family elected palliative care. patient extubated and on oxygen NC and unresponsive. Objective Objective Vital Signs Date Time Temp Pulse Resp B/P (MAP) Pulse Ox O2 Delivery O2 Flow Rate FiO2 12/03/19 07:38 Nasal Cannula 5.0 12/03/19 07:36 104 25 84/41 (55) 87 12/03/19 04:00 98.7 98.7 Intake and Output 12/03/19 07:00 Intake Total 2869.14 ml Output Total 35 ml Balance 2834.14 ml IV Total 2024.14 ml Tube Feeding 150 ml Blood Product IV Normal Saline Flush 695 ml Output Urine Total 35 ml Physical Exam Abdomen: Soft Heart: Regular rate, Normal S1, Normal S2 Extremities: No edema General: Other (unresponsive) HEENT: Atraumatic Lungs: Other (decreased breath sounds anteriorly) Neck: Supple Neuro: Other (unresponsive) Psych/Mental Status: Other (unresponsive) Skin: No rashes Assessment Assessment Problems Medical Problems: LLL pneumonia. severe sepsis with shock and multi organ failure acute kidney failure. no urine output 2. Acute hypoxic and hypercarbic respiratory failure, extubated 3. Leukocytosis.worse 4. 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 5. anemia. hgb lower 6. severe protein calorie malnutrition 7. Hyperlipidemia. 8. Paroxysmal atrial fibrillation, severe protein calorie malnutrition (1) Pneumonia Status: Acute (2) Respiratory failure, acute Status: Acute (3) Severe sepsis Status: Acute Plan Plan of Care continue palliative care Comment Review of Relevant I have reviewed the following items shadi (where applicable) has been applied. Labs Laboratory Tests Test 12/02/19 06:30 12/02/19 08:00 12/02/19 14:44 White Blood Count 36.2 x10^3/uL (4.0-11.0) Red Blood Count 2.03 x10^6/uL (4.30-5.70) Hemoglobin 6.2 g/dL (13.0-17.5) 7.8 g/dL (13.0-17.5) Hematocrit 18.7 % (39.0-53.0) 23.1 % (39.0-53.0) Mean Corpuscular Volume 92 fL (79-100) Mean Corpuscular Hemoglobin 31 pg (25-35) Mean Corpuscular Hemoglobin Concent 33 g/dL (31-37) 34 g/dL (31-37) Red Cell Distribution Width 19.0 % (11.5-14.5) Platelet Count 188 x10^3/uL (140-400) Neutrophils (%) (Auto) 96 % (31-73) Lymphocytes (%) (Auto) 2 % (24-48) Monocytes (%) (Auto) 1 % (0-9) Eosinophils (%) (Auto) 0 % (0-3) Basophils (%) (Auto) 0 % (0-3) Neutrophils # (Auto) 34.9 x10^3/uL (1.8-7.7) Lymphocytes # (Auto) 0.7 x10^3/uL (1.0-4.8) Monocytes # (Auto) 0.4 x10^3/uL (0.0-1.1) Eosinophils # (Auto) 0.1 x10^3/uL (0.0-0.7) Basophils # (Auto) 0.1 x10^3/uL (0.0-0.2) Sodium Level 129 mmol/L (136-145) Potassium Level 4.4 mmol/L (3.5-5.1) Chloride Level 90 mmol/L (98-107) Carbon Dioxide Level 26 mmol/L (21-32) Anion Gap 13 (6-14) Blood Urea Nitrogen 68 mg/dL (8-26) Creatinine 2.9 mg/dL (0.7-1.3) Estimated GFR (Cockcroft-Gault) 25.0 Glucose Level 197 mg/dL (70-99) Calcium Level 6.9 mg/dL (8.5-10.1) Magnesium Level 1.8 mg/dL (1.8-2.4) O2 Saturation 99 % (92-99) Arterial Blood pH 7.51 (7.35-7.45) Arterial Blood pCO2 at Patient Temp 27 mmHg (35-46) Arterial Blood pO2 at Patient Temp 201 mmHg (65-108) Arterial Blood HCO3 21 mmol/L (21-28) Arterial Blood Base Excess -2 mmol/L (-3-3) FiO2 60%+7 Laboratory Tests Test 12/02/19 14:44 Hemoglobin 7.8 g/dL (13.0-17.5) Hematocrit 23.1 % (39.0-53.0) Mean Corpuscular Hemoglobin Concent 34 g/dL (31-37) Microbiology 11/30/19 Blood Culture - Preliminary, Resulted NO GROWTH AFTER 2 DAYS Medications Current Medications Etomidate (Amidate) 20 mg STK-MED ONCE IV ; Start 11/29/19 at 07:37; Stop 11/29/19 at 07:37; Status DC Succinylcholine Chloride (Anectine) 200 mg STK-MED ONCE .ROUTE ; Start 11/29/19 at 07:38; Stop 11/29/19 at 07:38; Status DC Propofol 50 ml @ As Directed STK-MED ONCE IV ; Start 11/29/19 at 07:39; Stop 11/29/19 at 07:39; Status DC Piperacillin Sod/ Tazobactam Sod 3.375 gm/Sodium Chloride 50 ml @ 100 mls/hr 1X ONCE IV Last administered on 11/29/19at 08:29; Start 11/29/19 at 07:45; Stop 11/29/19 at 08:14; Status DC Propofol 50 ml @ As Directed STK-MED ONCE IV ; Start 11/29/19 at 08:21; Stop 11/29/19 at 08:21; Status DC Sodium Chloride 1,000 ml @ 1,000 mls/hr 1X ONCE IV Last administered on 11/29/19at 08:32; Start 11/29/19 at 07:30; Stop 11/29/19 at 08:30; Status DC Etomidate (Amidate) 20 mg 1X ONCE IV Last administered on 11/29/19at 08:35; Start 11/29/19 at 07:25; Stop 11/29/19 at 08:30; Status DC Succinylcholine Chloride (Anectine) 100 mg 1X ONCE IV Last administered on 11/29/19at 08:31; Start 11/29/19 at 07:25; Stop 11/29/19 at 08:30; Status DC Propofol (Diprivan) 500 mg 1X ONCE IV Last administered on 11/29/19at 08:33; Start 11/29/19 at 08:45; Stop 11/29/19 at 08:46; Status DC Sodium Chloride 1,000 ml @ 1,000 mls/hr 1X ONCE IV Last administered on 11/29/19at 09:09; Start 11/29/19 at 09:00; Stop 11/29/19 at 09:59; Status DC Propofol (Diprivan) 500 mg 1X ONCE IV Last administered on 11/29/19at 09:30; Start 11/29/19 at 09:30; Stop 11/29/19 at 09:31; Status DC Propofol (Diprivan) 200 mg TITRATE PRN IV SEDATION Last administered on 11/29/19at 09:45; Start 11/29/19 at 09:45; Stop 11/29/19 at 09:47; Status DC Propofol 50 ml @ 0.975 mls/ hr 1X ONCE IV Last administered on 11/29/19at 09:50; Start 11/29/19 at 10:00; Stop 11/29/19 at 10:01; Status DC Vancomycin HCl (Vanco Per Pharmacy) 1 each PRN DAILY PRN MC SEE COMMENTS Last administered on 11/29/19at 15:47; Start 11/29/19 at 10:15; Stop 11/30/19 at 10:42; Status DC Ondansetron HCl (Zofran) 4 mg PRN Q8HRS PRN IV NAUSEA/VOMITING; Start 11/29/19 at 10:15; Stop 11/30/19 at 10:14; Status DC Sodium Chloride 1,000 ml @ 125 mls/hr Q8H IV ; Start 11/29/19 at 10:15; Stop 11/29/19 at 10:54; Status DC Vancomycin HCl 1.5 gm/Sodium Chloride 500 ml @ 250 mls/hr 1X ONCE IV Last administered on 11/29/19at 11:23; Start 11/29/19 at 10:45; Stop 11/29/19 at 12:44; Status DC Acetaminophen (Tylenol) 650 mg Q6HRS PRN PEG MILD PAIN / TEMP > 100.3'F; Start 11/29/19 at 10:30; Stop 12/02/19 at 17:02; Status DC Sodium Chloride 1,000 ml @ 75 mls/hr CONT PRN IV .; Start 11/29/19 at 10:30; Stop 11/30/19 at 00:15; Status DC Allopurinol (Zyloprim) 100 mg DAILY PEG Last administered on 12/02/19at 08:51; Start 11/30/19 at 09:00; Stop 12/02/19 at 17:02; Status DC Amiodarone HCl (Cordarone) 200 mg DAILY PEG Last administered on 12/02/19at 08:50; Start 11/30/19 at 09:00; Stop 12/02/19 at 17:02; Status DC Aspirin (Rosemary Aspirin) 81 mg DAILY PEG ; Start 11/30/19 at 09:00; Stop 11/30/19 at 08:25; Status DC Atorvastatin Calcium (Lipitor) 40 mg QHS PEG Last administered on 12/01/19at 21:01; Start 11/29/19 at 21:00; Stop 12/02/19 at 17:02; Status DC Metoprolol Tartrate (Lopressor) 50 mg BID PO Last administered on 11/29/19at 20:05; Start 11/29/19 at 21:00; Stop 12/02/19 at 17:02; Status DC Scopolamine (Transderm-Scop) 1 patch Q3DAYS TD Last administered on 12/02/19at 08:51; Start 11/29/19 at 14:00 Vancomycin HCl (Vancomycin Oral Solution) 125 mg BID PEG Last administered on 12/02/19at 08:51; Start 11/29/19 at 21:00; Stop 12/02/19 at 17:02; Status DC Famotidine (Pepcid) 20 mg DAILY PEG ; Start 11/30/19 at 09:00; Stop 11/30/19 at 03:05; Status DC Heparin Sodium (Porcine) (Heparin Sodium) 5,000 unit BID SQ Last administered on 11/30/19at 08:21; Start 11/29/19 at 21:00; Stop 11/30/19 at 10:39; Status DC Piperacillin Sod/ Tazobactam Sod 3.375 gm/Sodium Chloride 50 ml @ 100 mls/hr Q6HRS IV Last administered on 11/30/19at 05:33; Start 11/29/19 at 18:00; Stop 11/30/19 at 10:39; Status DC Midazolam HCl 100 mg/Sodium Chloride 80 ml @ 0 mls/hr 1X ONCE IV Last administered on 11/29/19at 12:13; Start 11/29/19 at 12:00; Stop 11/29/19 at 12:01; Status DC Norepinephrine Bitartrate 8 mg/ Dextrose 258 ml @ 12.578 mls/ hr CONT PRN IV PER PROTOCOL Last administered on 11/29/19at 13:50; Start 11/29/19 at 13:00; Stop 11/29/19 at 16:46; Status DC Vasopressin 20 unit/Dextrose 101 ml @ 12 mls/hr CONT PRN IV SEE I/O RECORD Last administered on 12/02/19at 13:02; Start 11/29/19 at 15:15; Stop 12/02/19 at 17:02; Status DC Vancomycin HCl 1 gm/Sodium Chloride 250 ml @ 250 mls/hr Q24H IV ; Start 11/30/19 at 11:00; Stop 11/30/19 at 10:39; Status DC Vancomycin HCl (Vancomycin Trough Level) 1 each 1X ONCE MC ; Start 12/01/19 at 10:30; Stop 12/01/19 at 10:31; Status Cancel Fentanyl Citrate 30 ml @ 0 mls/hr CONT PRN IV SEE PROTOCOL; Start 11/29/19 at 16:45; Stop 12/02/19 at 17:02; Status DC Midazolam HCl 100 ml @ 0 mls/hr CONT PRN IV SEE PROTOCOL Last administered on 11/30/19at 09:42; Start 11/29/19 at 16:45; Stop 12/02/19 at 17:02; Status DC Norepinephrine Bitartrate 32 mg/ Dextrose 250 ml @ 3.047 mls/ hr CONT PRN IV PER PROTOCOL Last administered on 12/01/19at 21:03; Start 11/29/19 at 17:00; Stop 12/02/19 at 17:02; Status DC Sodium Chloride 1,000 ml @ 125 mls/hr 1X PRN PRN IV SEE COMMENTS; Start 11/30/19 at 00:15; Stop 12/02/19 at 17:02; Status DC Pantoprazole Sodium (PROTONIX VIAL for IV PUSH) 40 mg DAILYAC IVP ; Start 11/30/19 at 07:30; Stop 11/30/19 at 07:28; Status DC Sodium Chloride 500 ml @ 500 mls/hr 1X ONCE IV Last administered on 11/30/19at 03:30; Start 11/30/19 at 03:30; Stop 11/30/19 at 04:29; Status DC Linezolid/Dextrose 300 ml @ 300 mls/hr Q12HR IV Last administered on 12/02/19at 10:02; Start 11/30/19 at 11:00; Stop 12/02/19 at 17:02; Status DC Albumin Human 500 ml @ 125 mls/hr 1X ONCE IV Last administered on 11/30/19at 08:18; Start 11/30/19 at 07:00; Stop 11/30/19 at 10:59; Status DC Sodium Bicarbonate 150 meq/Dextrose 1,150 ml @ 75 mls/hr [id number] IV Last administered on 12/02/19at 16:24; Start 11/30/19 at 07:00; Stop 12/02/19 at 17:02; Status DC Pantoprazole Sodium 80 mg/ Sodium Chloride 100 ml @ 10 mls/hr Q10H IV Last administered on 12/02/19at 14:36; Start 11/30/19 at 07:30; Stop 12/02/19 at 17:02; Status DC Pantoprazole Sodium (PROTONIX VIAL for IV PUSH) 80 mg 1X ONCE IVP Last administered on 11/30/19at 08:19; Start 11/30/19 at 07:30; Stop 11/30/19 at 07:31; Status DC Metoclopramide HCl (Reglan Vial) 10 mg 1X ONCE IVP Last administered on 11/30/19at 08:20; Start 11/30/19 at 07:30; Stop 11/30/19 at 07:40; Status DC Aspirin (Aspirin Chewable) 81 mg DAILYWBKFT PO Last administered on 12/01/19at 09:06; Start 11/30/19 at 08:30; Stop 12/02/19 at 17:02; Status DC Piperacillin Sod/ Tazobactam Sod 3.375 gm/Sodium Chloride 50 ml @ 100 mls/hr Q8HRS IV ; Start 11/30/19 at 14:00; Stop 11/30/19 at 10:44; Status DC Piperacillin Sod/ Tazobactam Sod 2.25 gm/Sodium Chloride 50 ml @ 100 mls/hr Q6HRS IV ; Start 11/30/19 at 12:00; Stop 11/30/19 at 12:36; Status DC Meropenem 500 mg/ Sodium Chloride 50 ml @ 100 mls/hr Q8HRS IV Last administered on 12/01/19at 05:35; Start 11/30/19 at 14:00; Stop 12/01/19 at 10:47; Status DC Micafungin Sodium 100 mg/Dextrose 100 ml @ 100 mls/hr Q24H IV Last administered on 12/02/19at 13:03; Start 11/30/19 at 13:00; Stop 12/02/19 at 17:02; Status DC Daptomycin 340 mg/ Sodium Chloride 50 ml @ 100 mls/hr ONCE ONCE IV Last administered on 11/30/19at 14:11; Start 11/30/19 at 13:30; Stop 11/30/19 at 13:59; Status DC Meropenem 500 mg/ Sodium Chloride 50 ml @ 100 mls/hr Q12HR IV Last admini stered on 12/02/19at 08:48; Start 12/01/19 at 21:00; Stop 12/02/19 at 17:02; Status DC Daptomycin 390 mg/ Sodium Chloride 50 ml @ 100 mls/hr Q24H IV Last administered on 12/02/19at 09:54; Start 12/02/19 at 09:00; Stop 12/02/19 at 17:02; Status DC Multivitamins/ Minerals Therapeutic (Centrum Multivit-Mineral Liq) 5 ml DAILY PEG ; Start 12/02/19 at 16:00; Stop 12/02/19 at 17:02; Status DC Morphine Sulfate (Morphine Sulfate) 2 mg PRN Q1HR PRN IV PAIN; Start 12/02/19 at 17:00 Morphine Sulfate (Morphine Sulfate) 4 mg PRN Q1HR PRN IV PAIN Last administered on 12/03/19at 10:27; Start 12/02/19 at 17:00 Morphine Sulfate (Morphine Sulfate) 10 mg 1X ONCE IM Last administered on 12/02/19at 17:00; Start 12/02/19 at 17:00; Stop 12/02/19 at 17:02; Status DC Lorazepam (Ativan Inj) 2 mg PRN Q15MIN PRN IVP ANXIETY / AGITATION Last administered on 12/02/19at 20:56; Start 12/02/19 at 17:00 Lorazepam (Ativan Inj) 4 mg PRN Q15MIN PRN IVP ANXIETY / AGITATION; Start 12/02/19 at 17:00 Active Scripts Active Reported Transderm-Scop (Scopolamine) 1 Each Patch.td72 1 Patch TP Q3DAYS Probiotic (Lactobacillus Combo No.11) 1 Each Cap.sprink 1 Each PO DAILY Metoprolol Tartrate 50 Mg Tablet 1 Tab PEG BID Lipitor (Atorvastatin Calcium) 40 Mg Tablet 1 Tab PEG QHS Calcium 500 + Vit D 200 Caplet (Calcium Carbonate/Vitamin D3) 1 Each Tablet 1 Tab PEG DAILY 30 Days Aspirin 81 Mg Tab.chew 1 Tab PEG DAILY Amiodarone Hcl 200 Mg Tablet 1 Tab PEG DAILY Allopurinol 100 Mg Tablet 1 Tab PEG DAILY Acetaminophen Oral Liquid (Acetaminophen) 650 Mg/20.3 Ml Solution 650 Mg PO PRN Q4HRS PRN Vitals/I & O Vital Sign - Last 24 Hours 12/02/19 12/02/19 12/02/19 12/02/19 11:00 11:11 11:16 11:26 Temp 98.1 97.6 97.6 98.1 97.6 97.6 Pulse 106 100 99 99 Resp 20 20 20 20 B/P (MAP) 148/61 (90) 125/61 134/59 134/59 Pulse Ox 98 O2 Delivery Ventilator 12/02/19 12/02/19 12/02/19 12/02/19 11:40 12:00 12:00 12:30 Temp 98.0 98.0 98.0 98.0 Pulse 100 102 Resp 20 B/P (MAP) 114/52 (72) 132/54 Pulse Ox 100 98 O2 Delivery Ventilator Mechanical Ventilator Ventilator 12/02/19 12/02/19 12/02/19 12/02/19 13:00 13:00 14:00 15:00 Temp 98.0 98.0 Pulse 100 100 96 98 Resp 20 20 B/P (MAP) 133/61 128/64 (85) 95/53 (67) 97/53 (68) Pulse Ox 98 98 100 O2 Delivery Ventilator Ventilator Ventilator 12/02/19 12/02/19 12/02/19 12/02/19 15:31 15:33 16:00 17:00 Temp 98.1 98.1 Pulse 94 Resp 18 B/P (MAP) 108/59 (75) Pulse Ox 100 100 100 O2 Delivery Ventilator Mechanical Ventilator Ventilator O2 Flow Rate 25.0 12/02/19 12/02/19 12/02/19 12/02/19 17:00 18:00 19:00 19:42 Pulse 93 92 92 Resp 20 18 17 B/P (MAP) 110/57 (74) 109/59 (76) 109/60 (76) Pulse Ox 100 100 100 O2 Delivery Ventilator Ventilator Ventilator Mechanical Ventilator 12/02/19 12/02/19 12/02/19 12/02/19 20:00 21:00 23:43 23:59 Temp 98.4 97.8 98.4 97.8 Pulse 93 121 111 Resp 17 32 24 B/P (MAP) 100/57 (71) 104/62 (76) 117/69 (85) Pulse Ox 100 85 85 77 O2 Delivery Ventilator Nasal Cannula Nasal Cannula O2 Flow Rate 25.0 5.0 12/03/19 12/03/19 12/03/19 12/03/19 00:36 00:36 03:37 04:00 Temp 98.7 98.7 Pulse 107 Resp 24 B/P (MAP) 99/41 (60) Pulse Ox 77 77 77 77 O2 Delivery Nasal Cannula O2 Flow Rate 5.0 5.0 5.0 5.0 12/03/19 12/03/19 12/03/19 05:44 07:36 07:38 Pulse 104 Resp 25 B/P (MAP) 84/41 (55) Pulse Ox 77 87 O2 Delivery Nasal Cannula Nasal Cannula O2 Flow Rate 5.0 5.0 5.0 Intake and Output 12/02/19 12/02/19 12/03/19 15:00 23:00 07:00 Intake Total 1260 ml 1609.14 ml Output Total 0 ml 30 ml 5 ml Balance 1260 ml 1579.14 ml -5 ml Justifications for Admission Other Justification Nutrition Consultation Dietary Evaluation: Recommendations by RD: Dietary education by RD, Increase Calorie Intake Comments: Continue increasing TF 10 ml q8 hrs as tolerated to goal rate 40 ml/hr w/30 ml water flushes per primary REC Tylor BID via OGT; mix each packet w/4 oz water to dissolve, flush tube w/~30 ml water w/each packet REC MVI (liquid) via OGT for wound healing Expected Outcomes/Goals: Initiation of nutrition support within 24 - 48 hrs of intubation - met, new goal established New goal 12/01: TF infusion to meet >65% est needs while intubated Malnutrition Findings: Body Fat Depletion (Non Severe: Mild Depletion Weight Status: Appropriate PHILLY FONSECA MD Dec 03, 2019 11:00
--- NOTE | 2019-12-03 15:11 | NUR ---
Pt's time of expiration 1329. Pt assessed by this RN and ANGELY Guido. This RN notified Dr. Mina and other consultants. Pt's daughter, Richard Baires notified at [phone]. Adry, nursing supervisor sample also notified. Pt's IV's, dooley, and rectal tube removed. Central line left in place.
--- NOTE | 2019-12-04 10:53 | PDOC ---
Provider Note Date of Service: DATE: 12/04/19 TIME: 10:51 Provider Note discharge summary dictated # [id number] Justifications for Admission Other Justification PHILLY FONSECA MD Dec 04, 2019 10:53
--- NOTE | 2019-12-04 11:19 | DS ---
DATE OF DISCHARGE: 12/03/2019 CONSULTANTS: Include Dr. Neal Calle, Dr. Jolly, Dr. Perry, Dr. Omer. FINAL DIAGNOSES: 1. Sepsis with shock with multiorgan failure. 2. Left lower lobe pneumonia. 3. Acute kidney injury. 4. Acute hypoxic and hypercarbic respiratory failure. 5. Leukocytosis. 6. Cerebrovascular accident late effects with right-sided hemiparesis, encephalopathy and global aphagia, oropharyngeal dysphagia, previous maintain on PEG tube feedings. 7. Anemia. 8. Severe protein-calorie malnutrition. 9. Hyperlipidemia. 10. Paroxysmal atrial fibrillation. 11. Severe protein-calorie malnutrition. HOSPITAL COURSE: The patient is an 89-year-old -Luxembourger male with history of cerebrovascular accident with late effects including right-sided hemiparesis, oropharyngeal dysphagia, maintain on PEG tube feedings, global aphasia and encephalopathy, who resides in a [facility], cared for by another physician and admitted to [facility] through the Emergency Room on 11/29/2019 found to be unresponsive to verbal stimuli and had respiratory distress. Chest x-ray showed bilateral lower lobe lung infiltrates with a high diaphragm on the right side, had acute hypoxic respiratory failure and was intubated and sedated in the Emergency Room and is on the ventilator. The patient was diagnosed with severe sepsis with shock with multiorgan failure, placed on pressors. He developed acute kidney injury with a near anuric. He was on the ventilator with acute hypoxic respiratory failure. He had leukocytosis. He had some coffee-ground material at one point, but no bright red blood. The patient was seen by multiple consultants including Dr. Neal Calle for Infectious Disease, and he received IV antibiotics. Dr. Jolly for Nephrology, but was not a candidate for hemodialysis due to his low blood pressure on pressors. Also seen by Dr. Perry for GI and Dr. Omer for Pulmonary. After discussion with the family, the family decided to make him palliative care and he was extubated yesterday and he on 12/03/2019. PHILLY FONSECA MD DR: ASIF/chuck JOB#: [id number] / [id number]
== END 2019-12-03 13:29 | disposition expired | DRG 871 ==
LOC: ER 07:16 → ED HOLD 10:12 → 1 WEST ICU 12:00
PROVIDERS: ADMIT Internal Medicine; ATTEND Internal Medicine
PROC: 5A1945Z Respiratory Ventilation, 24-96 Consecutive Hours (ICD-10-PCS; principal; 2019-11-29)
PROC: 0BH17EZ Insertion of Endotracheal Airway into Trachea, Via Natural or Artificial Opening (ICD-10-PCS; 2019-11-29)
PROC: 5A09357 Assistance with Respiratory Ventilation, Less than 24 Consecutive Hours, Continuous Positive Airway Pressure (ICD-10-PCS; 2019-11-29)
PROC: 30233N1 Transfusion of Nonautologous Red Blood Cells into Peripheral Vein, Percutaneous Approach (ICD-10-PCS; 2019-12-02)
DX: A41.9 Sepsis, unspecified organism (principal); J96.01 Acute respiratory failure with hypoxia; J18.9 Pneumonia, unspecified organism; E43 Unspecified severe protein-calorie malnutrition; J96.02 Acute respiratory failure with hypercapnia; R65.21 Severe sepsis with septic shock; E87.1 Hypo-osmolality and hyponatremia; E87.2 Acidosis; I69.351 Hemiplegia and hemiparesis following cerebral infarction affecting right dominant side; K92.2 Gastrointestinal hemorrhage, unspecified; N17.9 Acute kidney failure, unspecified; B96.89 Other specified bacterial agents as the cause of diseases classified elsewhere; D64.9 Anemia, unspecified; E78.00 Pure hypercholesterolemia, unspecified; E78.5 Hyperlipidemia, unspecified; E86.0 Dehydration; I10 Essential (primary) hypertension; I48.0 Paroxysmal atrial fibrillation; R13.12 Dysphagia, oropharyngeal phase; Z20.828 Contact with and (suspected) exposure to other viral communicable diseases; Z51.5 Encounter for palliative care; Z85.118 Personal history of other malignant neoplasm of bronchus and lung; Z86.19 Personal history of other infectious and parasitic diseases; Z93.1 Gastrostomy status; R13.10 Dysphagia, unspecified
CPT/HCPCS: 31500; 36415; 36556; 36600; 71045; 71250; 74176; 80048; 80053; 80069; 81001; 82550; 82805; 83605; 83735; 83880; 84484; 85007; 85014; 85018; 85025; 85610; 85730; 86850; 86900; 86901; 86920; 87040; 87205; 93005; 94002; 94003; 96361; 96365; 96375; 96376; 99291; C9113; J0330; J0878; J1644; J2020; J2060; J2185; J2248; J2250; J2270; J2543; J2704; J2765; J3370; J3490; J7030; J7040; J7060; P9016; P9045; G0378; U0003-CS